=== PATIENT | male | born 1950 | race Caucasian/White ===

== ENCOUNTER 2019-03-27 09:03 | Emergency (ER) | payer OTHER ==
--- OUTSIDE RECORDS SUMMARY | 2019-03-27 09:05 | XMS REPORT | Clinical Summary ---
:1950 Author Organization [facility] Address [address] [place] [address] Care Team Providers Name Role Phone Santiago Mackenzie MD Primary Care Provider Allergies No Known Allergies Medications Medication Sig Dispensed Refills Start Date End Date Status meloxicam (MOBIC) 15 mg Take 15 mg by 0 Active tablet mouth daily. Active Problems Problem Noted Date Internal hemorrhoids without complication 01/21/2017 Perianal dermatitis 01/21/2017 Family History Medical History Relation Name Comments Heart disease Father Hypertension Father Lung disease Father Colon cancer Maternal Uncle Breast cancer Mother Relation Name Status Comments Father Maternal Uncle Mother Social History Tobacco Use Types Packs/Day Years Used Date Never Smoker Alcohol Use Drinks/Week oz/Week Comments No Sex Assigned at Date Recorded Not on file Job Start Date Occupation Industry Not on file Not on file Not on file Travel History Travel Start Travel End No recent travel history available. Last Filed Vital Signs Not on file Plan of Treatment Health Maintenance Due Date Last Done Comments COLONOSCOPY SCREENING 2002 SHINGLES VACCINES (#1) 2002 65+ PNEUMOCOCCAL VACCINE (1 of 2 - PCV13) 2017 INFLUENZA VACCINE 03/11/2019 Results Not on fileafter 03/26/2018 (Work) [id number] Advance Directives Patient has advance care planning documents on file. For more information, please contact:[address] [place] [address]
[2019-03-27] MEDS ORDERED: TETANUS & DIPHTHERIA TOX,ADULT 0.5 ML VIAL ONE (09:28)
[2019-03-27] MEDS ORDERED: LIDOCAINE 1% MPF 5 ML VIAL ONE (09:28)
--- NOTE | 2019-03-27 10:01 | EDPHYS ---
Physician Documentation [facility] Name: Sara Corbin Age: 68 yrs Sex: Male : 1950 Arrival Date: 03/27/2019 Time: 09:07 Bed 18 Private MD: ED Physician Preston Perkins HPI: 03/27 09:55 This 68 yrs old Male presents to ER via Ambulatory with complaints of finger gs laceration. 09:55 The patient or guardian reports a laceration, clean, 2 cm(s). The complaints affect the gs left hand diffusely. Context: The problem was sustained at home, resulted from using knife. Onset: The symptoms/episode began/occurred acutely, just prior to arrival. Modifying factors: The symptoms are alleviated by elevation, the symptoms are aggravated by movement. Associated signs and symptoms: Pertinent negatives: numbness distally. Severity of symptoms: At their worst the symptoms were moderate, in the emergency department the symptoms are unchanged. The patient has not experienced similar symptoms in the past. Historical: - Allergies: 09:14 No Known Allergies; ss - Home Meds: 09:14 None [Active]; ss - PMHx: 09:14 None; ss - PSHx: 09:14 knee repair; ss - Immunization history:: Last tetanus immunization: unknown. - Social history:: Smoking status: Patient/guardian denies using tobacco. - Ebola Screening: : Patient denies exposure to infectious person Patient denies travel to an Ebola-affected area in the 21 days before illness onset. ROS: 09:55 All other systems are negative. gs Exam: 09:55 Constitutional: The patient appears alert, awake, uncomfortable. gs 09:55 Musculoskeletal/extremity: ROM: no acute changes, Circulation is intact in all extremities. Sensation intact. 09:55 Skin: injury, laceration(s), the wound is approximately 2 cm(s), with a depth of .5 cm(s), of the palmar aspect of distal phalanx of left thumb. Vital Signs: 09:14 BP 160 / 92; Pulse 89; Resp 17; Temp 97.8(TE); Pulse Ox 97% on R/A; Weight 122.47 kg; ss Height 5 ft. 10 in. (177.80 cm); Pain 4/10; 09:14 Body Mass Index 38.74 (122.47 kg, 177.80 cm) ss Laceration: 09:55 Wound Repair of 2cm ( 0.8in ) subcutaneous laceration to palmar aspect of distal gs phalanx of left thumb. Distal neuro/vascular/tendon intact. Anesthesia: Wound infiltrated with 1 mls of 1% lidocaine. Wound prep: Simple cleansing with hibiclenz, Wound irrigation by me. Skin closed with 3 4-0 Prolene using simple sutures and sterile technique. Dressed with 4x4's. Patient tolerated well. MDM: 09:26 Patient medically screened. gs 09:55 Differential diagnosis: lac. Data reviewed: vital signs, nurses notes. Response to gs treatment: the patient's symptoms have markedly improved after treatment, and as a result, I will discharge patient. 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 Exp: em 11/19/2020. Lot #: [id number]. } Route: IM; Site: left deltoid; 09:54 Follow up: Response: No adverse reaction em 09:48 Drug: Lidocaine (1 %) 5 mg {Note: administered by Dr. Perkins.} Volume: 5 ml; Route: em Infiltration; Site: wound; 09:54 Follow up: Response: No adverse reaction; Pain is decreased em Disposition: 03/27/19 10:00 Discharged to Home. Impression: left thumb laceration. - Condition is Stable. - Discharge Instructions: Laceration Care, Adult, [id number]. - Medication Reconciliation Form, Thank You Letter, Antibiotic Education, Prescription Opioid Use form. - Follow up: Private Physician; When: 7 - 10 days; Reason: Staple/Suture removal. Signatures: Luis Alfredo Powers, BORING MACHINE OPERATOR HELPER BORING MACHINE OPERATOR HELPER em Natalya Kaur RN RN ss Starr, Gregory, MD MD gs Corrections: (The following items were deleted from the chart) 10:00 10:00 03/27/2019 10:00 Discharged to Home. Impression: left thumb laceration. Condition gs is Stable. Forms are Medication Reconciliation Form, Thank You Letter, Antibiotic Education, Prescription Opioid Use. Follow up: Private Physician; When: 2 - 3 days; Reason: Re-evaluation by your physician. gs 10:12 10:00 03/27/2019 10:00 Discharged to Home. Impression: left thumb laceration. Condition em is Stable. Forms are Medication Reconciliation Form, Thank You Letter, Antibiotic Education, Prescription Opioid Use. Follow up: Private Physician; When: 7 - 10 days; Reason: Staple/Suture removal. gs
--- NOTE | 2019-03-27 10:01 | ER ---
Nurse's Notes [facility] Name: Sara Corbin Age: 68 yrs Sex: Male : 1950 Arrival Date: 03/27/2019 Time: 09:07 Bed 18 Private MD: Diagnosis: left thumb laceration Presentation: 03/27 09:12 Presenting complaint: Patient states: Partial amputation to very tip of L thumb ss sustained by knife, 45 minutes ago. No active bleeding noted at this time. Transition of care: patient was not received from another setting of care. Onset of symptoms was March 27, 2019. Risk Assessment: Do you want to hurt yourself or someone else? Patient reports no desire to harm self or others. Initial Sepsis Screen: Does the patient meet any 2 criteria? No. Patient's initial sepsis screen is negative. Does the patient have a suspected source of infection? No. Patient's initial sepsis screen is negative. Care prior to arrival: None. 09:12 Method Of Arrival: Ambulatory ss 09:12 Acuity: [place] 4 ss Historical: - Allergies: 09:14 No Known Allergies; ss - Home Meds: 09:14 None [Active]; ss - PMHx: 09:14 None; ss - PSHx: 09:14 knee repair; ss - Immunization history:: Last tetanus immunization: unknown. - Social history:: Smoking status: Patient/guardian denies using tobacco. - Ebola Screening: : Patient denies exposure to infectious person Patient denies travel to an Ebola-affected area in the 21 days before illness onset. Screenin:23 Abuse screen: Denies threats or abuse. Nutritional screening: No deficits noted. em Tuberculosis screening: No symptoms or risk factors identified. Fall Risk None identified. Assessment: 09:25 General: Appears in no apparent distress. comfortable, Behavior is calm, cooperative. em Pain: Complains of pain in dorsal aspect of distal phalanx of left thumb Pain currently is 4 out of 10 on a pain scale. Pain began 30 min ago. Neuro: Level of Consciousness is awake, alert, obeys commands, Oriented to person, place, time, situation. Cardiovascular: Capillary refill < 3 seconds Patient's skin is warm and dry. Respiratory: Airway is patent Respiratory effort is even, unlabored, Respiratory pattern is regular, symmetrical. Derm: Skin is intact, is healthy with good turgor, Skin is pink, warm \T\ dry. Musculoskeletal: Capillary refill < 3 seconds, Range of motion: intact in all extremities. Injury Description: Laceration sustained to dorsal aspect of distal phalanx of left thumb is clean, 0.5 to 2.5 cm long, not bleeding, was sustained 30-60 minutes ago. a small amount of bleeding noted at this time. 09:30 General: The previous assessment is accurate. Family member remains at bedside. No ss active bleeding noted at this time. . Vital Signs: 09:14 BP 160 / 92; Pulse 89; Resp 17; Temp 97.8(TE); Pulse Ox 97% on R/A; Weight 122.47 kg; ss Height 5 ft. 10 in. (177.80 cm); Pain 4/10; 09:14 Body Mass Index 38.74 (122.47 kg, 177.80 cm) ED Course: 09:07 Patient arrived in ED. mr 09:09 Luis Alfredo Powers LVN is Primary Nurse. em 09:13 Triage completed. ss 09:14 Arm band placed on right wrist. ss 09:18 Preston Perkins MD is Attending Physician. gs 09:23 Patient has correct armband on for positive identification. Bed in low position. em 09:54 Assist provider with laceration repair on dorsal aspect of distal phalanx of left thumb em that was 2.5 cm. or less using sutures. Set up tray. Performed by Preston Perkins MD Dressed with 4X4s, Kerlix, Neosporin, Patient tolerated well. Patient did not have IV access during this emergency room visit. 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 Exp: em 11/19/2020. Lot #: [id number]. } Route: IM; Site: left deltoid; 09:54 Follow up: Response: No adverse reaction em 09:48 Drug: Lidocaine (1 %) 5 mg {Note: administered by Dr. Perkins.} Volume: 5 ml; Route: em Infiltration; Site: wound; 09:54 Follow up: Response: No adverse reaction; Pain is decreased em Outcome: 10:00 Discharge ordered by MD. gs 10:12 Discharged to home ambulatory. em 10:12 Condition: good 10:12 Discharge instructions given to patient, Instructed on discharge instructions, follow up and referral plans. wound care, Demonstrated understanding of instructions, follow-up care, wound care. 10:12 Patient left the ED. em Signatures: Frieda Correia Edgar, STREET LIGHT SERVICER STREET LIGHT SERVICER em Natalya Kaur, LINDA RN ss Preston Perkins MD MD
== END 2019-03-27 10:12 | disposition home or self-care (01) ==
LOC: ER 09:03
PROC: 0JQK0ZZ Repair Left Hand Subcutaneous Tissue and Fascia, Open Approach (ICD-10-PCS; principal; 2019-03-27)
DX: S61.012A Laceration without foreign body of left thumb without damage to nail, initial encounter (principal); W26.0XXA Contact with knife, initial encounter; Y93.9 Activity, unspecified; Z23 Encounter for immunization
CPT/HCPCS: 90471; 90714; 99283

== ENCOUNTER 2022-12-07 22:25 | Emergency (ER) | payer OTHER ==
--- OUTSIDE RECORDS SUMMARY | 2022-12-07 22:29 | XMS REPORT | Clinical Summary ---
:1950 Author Organization [facility] MD [facility] Address [address] [place] [address] Care Team Providers Name Role Phone Karen Gutierrez MD Unavailable [phone] Funmilayo Arriaga MD Primary Care Provider Allergies No known active allergies Medications Medication Sig Dispensed Refills Start Date End Date Status doxycycline (ADOXA) Take 1 0 12/13/2021 Active 100 MG tablet tablet by mouth daily. diclofenac sodium Take 1 0 10/16/2021 A ctive (VOLTAREN) 75 mg EC tablet by tablet mouth twice daily. pseudoephedrine HCl Take by 0 Active (SUDAFED ORAL) mouth. meloxicam (MOBIC) Take 7.5 mg 0 Discontinued 7.5 mg tablet by mouth 2 (Thera py twice completed) daily. traMADol (Ultram) 50 Take 1 10 tablet 0 01/29/2022 07/31/20 2 Discontinued mg tablet (50 2 (Therapy tabletIndications: mg) by leah bryant) Malignant melanoma mouth every of skin of chest 6 (six) hours as needed for severe pain. Active Problems Problem Noted Date Multiple actinic keratoses 07/31/2022 Arthritis 12/28/2021 Malignant melanoma of skin of chest 12/25/2021 Overview: Added automatically from request for ebonie baltazar [id number] Encounters Date Type Specialty Care Team Description 07/31/2022 Follow-Up Endocrine Surgery Funmilayo Arriaga, Malign ant melanoma of skin of chest (Primary Dx); Multiple actinic keratoses Billie Hanson PA 07/31/2022 Travel 02/04/2022 Orders Only Endocrine Surgery Funmilayo Arriaga, Malign ant melanoma of ski n of chest (Prima ry Dx) 01/29/2022 Ancillary Procedure Radiology Valentin, Malignelizabeth t Billie L, PA melanoma of s kin of chest 01/29/2022 Surgery Ambulatory Surgery Funmilayo Arriaga, DARIEL STEWART OF MALIGNANT LESIO N OF TRUNK, right chest 01/29/2022 Anesthesia Event Ambulatory Surgery Aliyah Suazo MD 01/29/2022 Hospital Encounter Ambulatory Surgery Funmilayo Arriaga, Malignant MD melanoma of ski n of chest 01/29/2022 Orders Only Endocrine Surgery Valentin, Billie L, PA 01/29/2022 Travel 01/28/2022 Anesthesia Event Anesthesiology Pelon Craft, [place] 01/28/2022 POEM Appointments Anesthesiology Valentin, Malignan t Billie L, PA melanoma of s kin of chest 01/28/2022 Clinical Support Eri Hanson, Suspicion ( Primary Dx); Billie L, PA Malignant melanoma of skin of chest Fuentes Brown 01/28/2022 Travel 01/23/2022 Ancillary Procedure Radiology Valentin, Malignan t Billie L, PA melanoma of s kin of chest 01/23/2022 Ancillary Procedure Radiology Valentin, Malignan t Billie L, PA melanoma of s kin of chest 01/23/2022 Travel 01/04/2022 Telephone Oncology Corrine Leonard RN 12/27/2021 Office Visit Endocrine Surgery Funmilayo Arriaga, Malign martín [place] melanoma of ski n of chest (Prima ry Dx) 12/27/2021 NPR Patient Access Funmilayo Arriaga Services MD 12/27/2021 Travel 12/25/2021 Lab Requisition Abhilash Nelson MD Rincon, Liliana, MD 12/25/2021 Orders Only Endocrine Surgery Kidder, Malignant Billie L, PA melanoma of s kin of chest (Prima ry Dx) 12/25/2021 Prep for Surgery Endocrine Surgery Valentin, Malign ant Billie L, PA melanoma of s kin of chest (Prima ry Dx) after 12/07/2021 Immunizations Name Administration Dates Next Due Pfizer SARS-CoV-2 Vaccination 11/16/2021, 05/25/2021, 10/11, (Purple Cap) 09/20/2020 Surgical History Surgery Date Site/Laterality Comments COLONOSCOPY KNEE ARTHROPLASTY VA EXCISION MAL LESION 01/29/2022 Chest/Right Procedure : EXCISION OF TRUNK/ARM/LEG 0.6-1.0 CM MALIGNA NT LESION OF TRUNK, right chest; Ebonie geon: Funmilayo Arriaga MD; Loca tion: [facility]; Service: SURG ON C - MELANOMA VA INJ RADIOACTIVE TRACER FOR 01/29/2022 Chest/Right Pr ocedure: ISOTOPE INJECTION ID OF SENTINEL NODE FOR SENTINEL NODE BIOPSY; Surgeon: Funmilayo Arriaga MD; [facility]; Service: SURG ONC - MELAN AVERY VA BX/EXC LYMPH NODE OPEN 01/29/2022 Axilla/Right Proced ure: BIOPSY OR EXCISION SUPERFICIAL OF SUPERFICIAL L YMPH NODE; Surgeon: Funmilayo Arriaga MD; [facility]; Service: SURG ONC - MELAN AVERY VA INTRAOP SENTINEL LYMPH 01/29/2022 Chest/Right Proced ure: INTRAOPERATIVE NODE ID W/DYE INJECTION LYMPHATI C MAPPING; Surgeon: Funmilayo Arriaga MD; Location: [facility]; Service : SURG ONC - MELANOMA Medical History Medical History Date Comments Polyp of colon Malignant melanoma of skin Family History Medical History Relation Name Comments Lung cancer Father Maximiliano Corbin Colon cancer Maternal Uncle Katia Soto Thyroid cancer Mother Hatti Relation Name Status Comments Father Maximiliano Corbin Maternal Uncle Katia Soto Mother Hatti Social History Tobacco Use Types Packs/Day Years Used Date Smoking Tobacco: Former Cigarettes 1.5 19 1971 - 1990 Smokeless Tobacco: Former Qu it: 1992 Alcohol Use Standard Drinks/Week Comments Not Currently 42 (1 standard drink = 0.6 oz pure alcoh ol) Sex Assigned at Date Recorded Not on file Job Start Date Occupation Industry Not on file Not on file Not on file Obstetrics History Last Filed Vital Signs Vital Sign Reading Time Taken Comments Blood Pressure 148/88 07/31/2022 10:35 AM RESOLUTION EXPERT Pulse 80 07/31/2022 10:35 AM RESOLUTION EXPERT Temperature 36.6 C (97.9 F) 07/31/2022 10:34 AM RESOLUTION EXPERT Respiratory Rate 18 07/31/2022 10:34 AM RESOLUTION EXPERT Oxygen Saturation 98% 07/31/2022 10:34 AM RESOLUTION EXPERT Inhaled Oxygen Concentration - - Weight 115.8 kg (255 lb 4.7 oz) 01/29/2022 5:48 AM CDT Height 175.5 cm (5' 9.09") 12/27/2021 11:06 AM CDT Body Mass Index 37.6 12/27/2021 11:06 AM CDT Plan of Treatment Date Type Specialty Care Team Description 01/30/2023 Follow-Up Endocrine Surgery Funmilayo Arriaga MD [address] [place], [place] [address] (Wo rk) Health Maintenance Due Date Last Done Comments COVID-19 Vaccination (5 - Booster 01/11/2022 11/16/2021, , for Pfizer series) 10/11/2020, Additional histor y exists Procedures Procedure Name Priority Date/Time Associated Comments Diagnosis NM DOSING APPOINTMENT Routine 01/29/2022 4:19 PM Malignant fatemeh anoma Results for this CDT of skin of chest procedure a re in the results section. PATHOLOGY SURGICAL Routine 01/29/2022 8:11 AM Malignant melano ma Results for this INTERPRETATION CDT of skin of chest procedure are in the results section. INTRAOPERATIVE 01/29/2022 6:30 Malignant melanoma LYMPHATIC MAPPING AM CDT of skin of chest Special Needs VS [facility] BIOPSY OR EXCISION OF 01/29/2022 6:30 AM CDT Malignant melanoma of skin SUPERFICIAL LYMPH NODE of chest Special Needs VS [facility] ISOTOPE INJECTION FOR 01/29/2022 6:30 AM CDT Malignant melanoma of skin of SENTINEL NODE BIOPSY chest Special Needs VS [facility] EXCISION OF MALIGNANT LESION 01/29/2022 6:30 AM CDT Malignant melanoma of skin of OF TRUNK, chest Special Needs VS [facility] POC GLUCOSE SCREEN Routine 01/29/2022 6:24 AM Res ults for this CDT procedure are i n the results section. COVID-19 (SARS-COV-2) Routine 01/28/2022 8:39 AM Results for this PCR-ASYMPTOMATIC MC CDT procedur e are in the results section. NM LYMPHOSCINTIGRAPHY Routine 01/23/2022 2:30 PM Malignant Results for this MELANOMA CDT melanoma of skin procedure a re in of chest the results section. XR CHEST 2 VW Routine 01/23/2022 11:33 Malignant Results fo r this AM CDT melanoma of skin procedure a re in of chest the results section. CALCIUM LEVEL TOTAL Routine 01/23/2022 10:27 Malignant Resu lts for this AM CDT melanoma of skin procedure a re in of chest the results section. .GLOMERULAR FILTRATION Routine 01/23/2022 10:27 Malignant R esults for this RATE AM CDT melanoma of skin procedure a re in of chest the results section. SERUM CREATININE Routine 01/23/2022 10:27 Malignant Results for this AM CDT melanoma of skin procedure a re in of chest the results section. ELECTROLYTE PANEL Routine 01/23/2022 10:27 Malignant Result s for this AM CDT melanoma of skin procedure a re in of chest the results section. BLOOD UREA NITROGEN Routine 01/23/2022 10:27 Malignant Resu lts for this AM CDT melanoma of skin procedure a re in of chest the results section. GLUCOSE LEVEL Routine 01/23/2022 10:27 Malignant Results fo r this AM CDT melanoma of skin procedure a re in of chest the results section. PROTHROMBIN TIME Routine 01/23/2022 10:27 Malignant Results for this AM CDT melanoma of skin procedure a re in of chest the results section. HEMOGLOBIN A1C Routine 01/23/2022 10:27 Malignant Results f or this AM CDT melanoma of skin procedure a re in of chest the results section. COMPLETE BLOOD COUNT W/ Routine 01/23/2022 10:27 Malignant Results for this INDICES AM CDT melanoma of skin procedure a re in of chest the results section. BASIC METABOLIC PANEL, Routine 01/23/2022 10:27 Malignant CALCIUM TOTAL AM CDT melanoma of skin of chest EKG, 12-LEAD (SCHEDULED) Routine 01/23/2022 Malignant melanoma of skin of chest after 12/07/2021 Results NM Dosing Appt (01/29/2022 4:19 PM CDT) Anatomical Region Laterality Modality Nuclear Medicine Specimen (Source) Anatomical Collection Method Collection Time Re ceived Time Location / / Volume Laterality 01/29/2022 4:26 PM CDT Impressions 01/29/2022 4:27 PM CDT Dispensation of radiocolloid for intraoperative sentinel lymph node localization. Narrative 01/29/2022 4:27 PM CDT FULL RESULT: Examination: Dosing Appointment, 01/30/20 4:19 PM Clinical History: Melanoma Indication: Lymphatic mapping for intrao perative sentinel lymph node localization. Comparison: None. Technique: Unfiltered technetium-99m sul fur colloid, 0.55 mCi, was dispensed to the operating room nurse for injection into the chest melanoma site by Dr. Arriaga. Findings: No imaging was acquired. Procedure Note Dariel Mendez MD - 01/29/2022Fo rmatting of this note might be different from the original. FULL RESULT: Examination: Dosing Appointment, 01/30/20 4:19 PM Clinical History: Melanoma Indication: Lymphatic mapping for intrao perative sentinel lymph node localization. Comparison: None. Technique: Unfiltered technetium-99m sul fur colloid, 0.55 mCi, was dispensed to the operating room nurse for injection into the chest melanoma site by Dr. Arriaga. Findings: No imaging was acquired. IMPRESSION: Dispensation of radiocolloid for intraop erative sentinel lymph node localization. Billie [place] [facility] [place] Pathology Surgical Interpretation (01/29/2022 8:11 AM CDT) Component Value Ref Test Analysis Performed Pathologis t Range Method Time At Signature Submitted Malignant melanoma of 02/04/2022 [facility] Clinical skin of chest 7:35 AM History [C43.59] CDT Diagnosis A: Right axillary sentinel l ymph node # 1, hot and blue, ex vivo- 397, lymphadenectomy: 02/04/2022 [facility] Electronic ally One lymph node, melanoma not identified (0/1). 7:35 AM signed by See comment. CDT Thanh Ball MD B: Right chest, skin ellipse: on 02/04/2022 at Skin and subcutis with healing surgical wound/scar. 7:35 AM FOCAL INVASIVE AND IN-SITU MELANOMA, MARGINS ARE FREE Preliminary BRESLOW THICKNESS: 1.2 MM; GOPI LEVEL: IV result Background actinic keratosis. electronically Incidental early seborrheic keratosis. signed by Multifocal folliculitis and focal acantholytic dyskeratosis. Vitor See comment. Guille johnson MD on 02/01/20 at 6:11 PM Comment A: Examination of additional tissue levels and a melanocytic cocktail (HMB45, anti-MART1 and anti-tyrosinase) immunohistochemical study fails to reveal metastatic melanoma. 02/04/2022 [facility] 7:35 AM B: Small foci of spindle alejo l proliferation with slightly different morphologies is noted in blocks B8 and B9. Melanocytic cocktail (HMB45 and anti- tyrosinase) and SOX10 immunohistochemical studies high CDT light the dermal spindled ce lls in block B8, supporting the presence of in-situ and invasive melanoma, while the spindled cell sin B9 are essentially negative. There are a few nests of malignant melanoc ytes located deeper in assoc iation with adnexal structures and therefore, have not been included in the measurement of Breslow thickness. Synoptic MELANOMA OF THE SKIN: Excision, Re-Excision 02/04/2022 [facility] Checklist MELANOMA OF THE SKIN: EXCISION, RE-EXCISION - All Sp ecimens 7:35 AM 8th Edition - Protocol posted: 02/07/2021 CDT SPECIMEN Procedure: Excision Procedure: Nunn node(s) biopsy Specimen Laterality: Right TUMOR Tumor Site: Skin of trunk: Chest, medial inferior Histologic Type: Steve perficial spreading melanoma (low-cumulative sun damage (CSD) melanoma) Maximum Tumor (Breslow) Thickness (Millimeters): 1. 6 mm Macroscopic Satellite Nodule(s): Not identified Ulceration: Not identified Anatomic (Gopi) Level: IV (Melanoma invades reticu lar dermis) Mitotic Rate: 3 mitoses per mm2 Microsatellite(s): Not identified Lymphovascular Invasion: Not identified Neurotropism: Not identified Tumor-Infiltrating Lymphocytes: Present, nonbrisk Tumor Regression: Not identified MARGINS: Margin Status for Inv asive Melanoma: All margins negative for invasive melanoma REGIONAL LYMPH NODES: Regional Lymph Node Status: : All regional lymph nodes negative for tumor Total Number of Lymph Nodes Examined: 1 Number of Nunn Nodes Examined: 1 PATHOLOGIC STAGE CLASSIFICATION (pTNM, AJCC 8th Edition) : : Classification assigned in this report includes information from a prior procedure: [id number] pT Category: pT2a pN Category: pN0 Gross A: 02/04/2022 [facility] Description Nunn lymph node, axillar y, right axillary sentinel lymph node # 1, hot and blue, ex vivo- 397 (permanent and serial sectioning) acb or 5: A 2.0 x 1.2 x 0.5 cm lymph node. 7:35 AM SECTION CODE: A1-A2-1 possible lymph node sectioned. KR CDT B: Chest, right, wle right ches t melanoma, short stitch superior, long stitch right lateral (permanent) abc or 5: A 8.0 x 2.5 x 1.7 cm ellipse of nuñez skin that is oriented with a short stitch at superior a nd a long stitch at right la teral. Located on the surface of the skin is a 1.1 x 1.1 cm white, flat, circular previous biopsy site surrounded by a 3.3 x 2.5 cm area of dark nuñez mottling obscured by blue dye. The entire lesional ar ea comes to within 2.4 cm from the superior margin, 0.2 cm from the left lateral margin, 2.1 cm from the inferior margin, and 0.1 cm from the right lateral margin. The specimen is inked and sectioned. INK CODE: Blue-left lateral; Walsh-right lateral SECTION CODE: B1-superior t ip, ink side up; B2-inferior tip, ink side up; B3- deep margin, ink side up; B4-B 10-entire lesional area blocked off and submitted from superior to inferior in order. KR Biomarker Tumor: B8 (adequate for immunohistochemical studies on ly) 02/04/2022 [facility] Block(s) Normal: A2 7:35 AM CDT Disclaimer "Some tests reported 02/04/2022 [facility] here may have been 7:35 AM developed and CDT performance characteristics determined by [facility] Pathology and Laboratory Medicine. These tests have not been specifically cleared or approved by the U.S. Food and Drug Administration. If applicable, controls were reviewed and showed appropriate reactivity." Specimen Anatomical Collection Method Collection Time Receive d Time (Source) Location / / Volume Laterality Tissue (Nunn 01/29/2022 8:11 AM 01/29 9:09 Lymph Node, CDT AM CDT Axillary) Tissue (Chest, 01/29/2022 8:15 AM 022 9:09 Right) CDT AM CDT Funmilayo Arriaga MD LAB PATHOLOGY ORDERABLES Performing Organization Address City/State/ZIP Code Phon e Number [facility], [place] [id number] Sunil Lopez (ABNORMAL) POC Glucose Screen (01/29/2022 6:24 AM CDT) athologist Signature POC Glucose 118 (H) 70 - 99 POC [facility] mg/dL Comment: RN Notified Capillary blood samples, e.g. obtained b y fingerstick, may have inaccurate results in patients with decreased peripheral blood flow. Method description: All results are ladi ured using Electrochemistry test methodology. The glucose in the sample mixes with the reagents on the test strip. The reaction produces an electric current. The amount of current produced is proportion al to the glucose concentration in the blood. PO Sample Type Venous POC [facility] Performing Lab [facility] POC TEL[facility] R Comment: [facility], [facility] [facility], [place] [address]; Lab Direct or: Richelle Preston MD Specimen Anatomical Collection Method Collection Time Receive d Time (Source) Location / / Volume Laterality Blood 01/29/2022 6:24 AM 6:24 CDT AM CDT Funmilayo Arriaga MD POCT ORDERABLES - DEVICE Performing Organization Address City/State/ZIP Code Phon e Number POC [facility] Unless otherwise noted, [place] [address] lab tests performed by: Division of Pathology and Laboratory Medicine [address] [place] [address] POC [facility] COVID-19 (SARS-CoV-2) PCR-Asymptomatic (01/28/2022 8:39 AM CDT) [facility] Method Time Signature COVID19 (SARS Not Detected Not Detected ME CoV-2) [facility] Comment: This test is a qualitative reverse-trans criptase polymerase chain reaction (RT- PCR) developed for the [employer] DANA 6800 system and intended for qualitative detection of SARS CoV-2 RNA in nasopharyngeal a nd oropharyngeal swab specimens collecte d from any individuals, including those suspected o f COVID-19 by their healthcare provider, and those without symptoms or other reasons to suspect COVID-19. A fact sheet for patients provided by the hospice patient care secretary ( [employer]) can be rev iewed at: https://www.fda.gov/media/577845/joni luna A fact sheet for Health Care providers is provided by the hospice patient care secretary ([employer]) and can be reviewed at: https://www.fda.gov/media/202725/download Results must be interpreted within the c ontext of all relevant clinical and laboratory findings and should not form the sole basis for a diagnosis or treatment decision. Positive results do not rule out bacterial infection or co- infection with other viruses. Negative results do not rule ou t SARS-CoV-2 and must be combined with clinical observations, patient history, and/or epidemiological information. "Presumptive Positive" results are due t o partial amplification of SARS-CoV-2 targets and indicates low amounts of virus present in the specimen at or near the limit of detection. Regardless, individuals with "Presumptive Positive" results should be managed per institutional guidelines as individuals positive for SARS-CoV-2 virus, including use of appropriate infection control protocols. Internal controls are included to assess for possible amplification inhibitors. If inhibition is detected, testing is repeated and if inhibition is confirmed the specimen is resulted as "Invalid". When an "Invalid" result occurs, it is recomm ended to wait 3 days before submitting a new spec imen for testing if clinically indicated. This assay has been approved by the FDA for use only under Emergency Use Authorization (EUA) in laboratories that have been CLIA-certified to perform moderate-complexity and high-complexity tests. The performance characteristics of this assay were verified by the Microbiology Laboratory at [facility], CLIA Accreditation #: [id number] and CAP Accreditation #: [id number]. COVID19 SARS Source [employer]IST Swab ME MD [facility] COVID19 SARS Indication Pre-OR Procedure [facility] Specimen (Source) Anatomical Collection Method Collection Time Re ceived Time Location / / Volume Laterality Nasopharyngeal Swab 01/28/2022 8:39 01/28 AM CDT 3:30 PM CDT Funmilayo Arriaga MD MICROBIOLOGY - GENERAL ORDER LIZETH Performing Organization Address City/State/ZIP Code Phon e Number [facility] Unless otherwise noted, [place], [place] [id number] [place] [address] all lab tests performed by: Division of Pathology and Laboratory Medicine [address] [place] [address] Lymphoscintigraphy Melanoma (01/23/2022 2:30 PM CDT) Anatomical Region Laterality Modality Abdomen Single-Photon Emissi on Computed Tomography (SPECT) Specimen (Source) Anatomical Collection Method Collection Time Re ceived Time Location / / Volume Laterality 01/23/2022 4:50 PM CDT Impressions 01/23/2022 4:51 PM CDT Draining right axillary node. Narrative 01/23/2022 4:51 PM CDT FULL RESULT: Examination: Lymphoscintigraphy, 01/24/20 2:30 PM Clinical History: 71-year-old male with melanoma of the chest wall Indication: Lymphatic mapping for sentin el lymph node localization. Comparison: None. Technique: The patient was injected with 0.55 mCi of filtered technetium-99m sulfur colloid in four increments intradermally around the marked melanoma site in the right anterior chest. Multiple planar images of chest were obtained. Findings: A focus of intense radiotracer activity is identified in the right medial chest at the site of injection. A separate focus of activity is identified in the right axilla representing the draining node. Procedure Note Dariel Mendez MD - 01/23/2022Fo rmatting of this note might be different from the original. FULL RESULT: Examination: Lymphoscintigraphy, 01/24/20 2:30 PM Clinical History: 71-year-old male with melanoma of the chest wall Indication: Lymphatic mapping for sentin el lymph node localization. Comparison: None. Technique: The patient was injected with 0.55 mCi of filtered technetium-99m sulfur colloid in four increments intradermally around the marked melanoma site in the right anterior chest. Multiple planar images of chest were obtained. Findings: A focus of intense radiotracer activity is identified in the right medial chest at the site of injection. A separate focus of activity is identified in the right axilla representing the draining node. IMPRESSION: Draining right axillary node. Billie BARBOSA NM ORDERABLES X-ray Chest 2 Views (01/23/2022 11:33 AM CDT) Anatomical Region Laterality Modality Chest Digital Radiography Specimen (Source) Anatomical Collection Method Collection Time Re ceived Time Location / / Volume Laterality 01/23/2022 11:35 AM CDT Impressions 01/23/2022 11:36 AM CDT There is no sign of acute or metastatic intrathoracic disease. Narrative 01/23/2022 11:36 AM CDT FULL RESULT: Examination: Chest, 2 views, 01/23/2022 1 1:33 AM Clinical History: Malignant melanoma of skin of chest: Assess for active or metastatic intrathoracic disease. Clarify subsequent treatment strategy. Indication: Staging of Disease Progressi on: Assess for active or metastatic intrathoracic disease. Clarify subsequent treatment strategy. Melanoma Comparison: None Technique: Posterior, lateral and dual-e nergy radiograph of the chest Findings: Lung parenchyma:There are there are no n oncalcified pulmonary nodules. There is no sign of consolidation to suggest pneumonia. Nodes:There is no enlargement of the med iastinal or hilar regions to suggest underlying enlarged nodes. Cardiac: The cardiopericardial silhouett e is not enlarged. Pleura:There is no sign of a pleural eff usion. Degenerative changes of the spine. Procedure Note Kevin Woodward MD - 01/23/2022Formatt ing of this note might be different from the original. FULL RESULT: Examination: Chest, 2 views, 01/23/2022 1 1:33 AM Clinical History: Malignant melanoma of skin of chest: Assess for active or metastatic intrathoracic disease. Clarify subsequent treatment strategy. Indication: Staging of Disease Progressi on: Assess for active or metastatic intrathoracic disease. Clarify subsequent treatment strategy. Melanoma Comparison: None Technique: Posterior, lateral and dual-e nergy radiograph of the chest Findings: Lung parenchyma:There are there are no n oncalcified pulmonary nodules. There is no sign of consolidation to suggest pneumonia. Nodes:There is no enlargement of the med iastinal or hilar regions to suggest underlying enlarged nodes. Cardiac: The cardiopericardial silhouett e is not enlarged. Pleura:There is no sign of a pleural eff usion. Degenerative changes of the spine. IMPRESSION: There is no sign of acute or metastatic intrathoracic disease. Billie [facility] ORDER LIZETH .Serum Creatinine (01/23/2022 10:27 AM CDT) athologist Signature Creatinine 1.03 0.67 - 1.17 [facility] mg/dL Comment: Testing performed at [facility], [address] [facility] [place] [address] Specimen Anatomical Collection Method Collection Time Receive d Time (Source) Location / / Volume Laterality Blood 01/23/2022 10:27 01/23/2022 AM CDT 10:28 AM CDT Billie MORENO LAB BLOOD ORDERABLES Performing Organization Address City/State/[place] [address] [address] [facility] Glomerular Filtration Rate (01/23/2022 10:27 AM CDT) athologist Signature eGFR-AA 85 >=60 [facility] mL/min/1.73 sq. m Comment: Normal eGFR >= 60 mL/min/1.73 m2 Note: The eGFR is calculated using the C KD-EPI equation. The eGFR declines with age. eGFR <60 mL/min/1.73 m2 is considered as "decreased". This equation should only be used for patients 18 and older. According to the [employer]'s Kidney Disease Outcome Quality Initiative (KDOQI) classification and 2012 Kidney Disease Improving Global Outcomes (KDIGO) Clinical Practice Guideline, the stage of CKD should be categorized based on estimated GFR. Stage Description GFR mL/min/1. 73 m2 1 Normal or high GFR >=90 2 Mildly decreased GFR 60-89 3a Mildly to moderately decreased GFR 45-59 3b Moderately to severely decreased GFR 30-44 4 Severely decreased GFR 15-29 5 Kidney failure <15 [facility], [address] [facility], [place] [address] eGFR-BALDEV 74 >=60 mL/min/1.73 sq. m [facility] Comment: Normal eGFR >= 60 mL/min/1.73 m2 Note: The eGFR is calculated using the C KD-EPI equation. The eGFR declines with age. eGFR <60 mL/min/1.73 m2 is considered as "decreased". This equation should only be used for patients 18 and older. According to the National [employer]'s Kidney Disease Outcome Quality Initiative (KDOQI) classification and 2012 Kidney Disease Improving Global Outcomes (KDIGO) Clinical Practice Guideline, the stage of CKD should be categorized based on estimated GFR. Stage Description GFR mL/min/1. 73 m2 1 Normal or high GFR >=90 2 Mildly decreased GFR 60-89 3a Mildly to moderately decreased GFR 45-59 3b Moderately to severely decreased GFR 30-44 4 Severely decreased GFR 15-29 5 Kidney failure <15 Testing performed at [facility], [address] [place] [address] Specimen Anatomical Collection Method Collection Time Receive d Time (Source) Location / / Volume Laterality Blood 01/23/2022 10:27 01/23/2022 AM CDT 10:28 AM CDT Billie MORENO LAB BLOOD ORDERABLES Performing Organization Address City/[facility]/ZIP [facility] [place] [address] [place] [address] Prothrombin Time with INR (01/23/2022 10:27 AM CDT) athologist Signature PT 12.6 11.5 - 13.9 [facility] second(s) Comment: Testing performed at [facility], [address] [place] [address] INR 0.97 0.90 - 1.10 [facility] Comment: Testing performed at [facility], [address] [place] [address] Specimen Anatomical Collection Method Collection Time Receive d Time (Source) Location / / Volume Laterality Blood 01/23/2022 10:27 01/23/2022 AM CDT 10:28 AM CDT [facility] - 01/23/2022 11:11 AM CDT This lab cannot be scheduled at the [facility] locations due to collection/proccessing restrictions: [facility] and [facility]. Billie MORENO LAB BLOOD ORDERABLES Performing Organization Address City/State/Z[place] [address] [place] [address] Complete Blood Count w/o Differential (01/23/2022 10:27 AM CDT) P athologist Signature WBC 8.4 4.0 - 11.0 [facility] K/uL Comment: All components of the CBC perfo rmed at [facility], [address] [place] [address], [place] [address] RBC 5.11 4.50 - 6.00 M/uL [facility] Comment: All components of the CBC perfo rmed at [facility], [address] [place] [address], [place] [address] Hgb 15.1 14.0 - 18.0 gm/dL [facility] Comment: As part of CBC or as an individ ual orderable testing performed at [facility], [address] [place] [address], [place] [address] Hct 45.4 40.0 - 54.0 % [facility] Comment: As part of CBC testing performe d at [facility], [address] [place] [address] MCV 89 82 - 98 fL [facility] Comment: As part of CBC testing performe d at [facility], [address] [place] [address] MCH 29.5 27.0 - 31.0 pg [facility] Comment: As part of CBC testing performe d at [facility], [address] [place] [address], [place] [address] MCHC 33.3 31.0 - 36.0 gm/dL [facility] Comment: As part of CBC testing performe d at [facility], [address] [place] [address] RDW-SD 43.0 35.1 - 46.3 fL [facility] Comment: As part of CBC testing performe d at [facility], [address] [place] [address] RDW-CV 13.1 12.0 - 15.5 % [facility] Comment: As part of CBC testing performe d at [facility], [address] [place] [address] Platelet count 287 140 - 440 K/uL [facility] Comment: As part of CBC or an individual orderable testing performed at [facility], [address] [place] [address] MPV 9.8 4.0 - 10.4 fL [facility] Comment: As part of CBC testing performe d at [facility], [address] [place] [address] Specimen Anatomical Collection Method Collection Time Receive d Time (Source) Location / / Volume Laterality Blood 01/23/2022 10:27 01/23/2022 AM CDT 10:28 AM CDT Billie Omalleyam PA LAB BLOOD ORDERABLES Performing Organization Address City/State/ZIP Code Phon e Number [place], [place] [id number] [place] [address] BUN (01/23/2022 10:27 AM CDT) athologist Signature BUN 16 6 - 23 mg/dL [facility] Comment: Testing performed at [facility], [address] [place] [address] Specimen Anatomical Collection Method Collection Time Receive d Time (Source) Location / / Volume Laterality Blood 01/23/2022 10:27 01/23/2022 AM CDT 10:28 AM CDT Billie Mendez [place] PA LAB BLOOD ORDERABLES Performing Organization Address City/[facility]/ZIP Code Phon e Number [place], [place] [id number] [place] [address] (ABNORMAL) Hemoglobin A1c (01/23/2022 10:27 AM CDT) athologist Signature A1C 6.2 (H) 4.3 - 5.6 % [facility] Comment: HbA1c values >=6.5% are diagnostic of di abetes mellitus. Diagnosis should be confirmed by repeat testing. Therapeutic Action suggested: >8.0% HbA1 c; Goal of therapy: <7.0% HbA1c Testing performed at [facility], [address] [place] [address] Specimen Anatomical Collection Method Collection Time Receive d Time (Source) Location / / Volume Laterality Blood 01/23/2022 10:27 01/23/2022 AM CDT 10:28 AM CDT Billie Mendez Valentin PA LAB BLOOD ORDERABLES Performing Organization Address City/State/ZIP Code Phon e Number [place], [place] [id number] [place] [address] (ABNORMAL) Glucose Level (01/23/2022 10:27 AM CDT) athologist Signature Glucose Level 139 (H) 70 - 99 [facility] mg/dL Comment: Effective 03/06/16, the glucose reference intervals have been updated based on [place] [employer] guidelines (Standards of Medical Care in Diabetes 2016. Diabetes Care 2016; 39: S13-S22). Fasting blood glucose: Normal: 70-99 mg/dL Impaired fasting glucose (increased risk for diabetes or pre-diabetes): 100- 125 mg/dL Diabetes mellitus: >/=126 mg/dL Random blood glucose: Normal: 70-199 mg/dL Note: Random glucose >100 mg/dL is assoc iated with increased risk for diabetes Testing performed at [facility], [address] [place] [address] Specimen Anatomical Collection Method Collection Time Receive d Time (Source) Location / / Volume Laterality Blood 01/23/2022 10:27 01/23/2022 AM CDT 10:28 AM CDT Billie Omalleyam PA LAB BLOOD ORDERABLES Performing Organization Address City/State/ZIP Code Phon e Number [address] Calcium Level (01/23/2022 10:27 AM CDT) athologist Signature Calcium Lvl 9.9 8.4 - 10.2 [facility] mg/dL Comment: Testing performed at [facility], [address] [place] [address] Specimen Anatomical Collection Method Collection Time Receive d Time (Source) Location / / Volume Laterality Blood 01/23/2022 10:27 01/23/2022 AM CDT 10:28 AM CDT Billie Vanessa Valentin PA LAB BLOOD ORDERABLES Performing Organization Address City/State/ZIP Code Phon e Number [address] Electrolyte Panel (01/23/2022 10:27 AM CDT) athologist Signature Sodium Lvl 138 136 - 145 [facility] mEq/L Comment: Testing performed at [facility], [address] [place] [address] Potassium Lvl 4.1 3.5 - 5.1 mEq/L [facility] Y Comment: Testing performed at [facility], [facility] [place] [address] Chloride 105 98 - 107 mEq/L [facility] Comment: Testing performed at [facility], [address] [place] [address] CO2 24 22 - 29 mEq/L [facility] Comment: Testing performed at [facility], [address] [place] [address] Anion Gap 9 4 - 14 mEq/L [facility] Comment: Testing performed at [facility], [address] [place] [address] Specimen Anatomical Collection Method Collection Time Receive d Time (Source) Location / / Volume Laterality Blood 01/23/2022 10:27 01/23/2022 AM CDT 10:28 AM CDT Billie MORENO LAB BLOOD ORDERABLES Performing Organization Address City/[facility]/ZIP [place] [address] [place] [address] EKG, 12-Lead (Scheduled) (01/23/2022) Specimen (Source) Anatomical Location Collection Method / Collectio n Time Received Time / Laterality Volume Narrative This result has an attachment that is no t available. Billie MORENO ECG ORDERABLES Performing Organization Address [facility] Phon e Number [facility] after 12/07/2021 Insurance Payer Benefit Plan / Subscriber ID Effective Dates Phone Addre ss Type Group AETNA MEDICARE AETNA MEDICARE [id number] 2021-Presen [address] [place] [address] Care Teams Legal Entity Controller Relationship Specialty Start Date End Date Azar Gutierrezice PCP - External Referring Dermatology 12/19/21 MD David [id number] [facility] [address] [place] [address] Funmilayo Arriaga MD PCP - General Surgical Oncology 12/19/21 [facility] [place] [address]
--- OUTSIDE RECORDS SUMMARY | 2022-12-07 22:30 | XMS REPORT | Continuity of Care Document ---
:1950 Author Organization [facility] t Address [address] [place] [id number] Care Team Providers Name Role Phone Santiago Mackenzie MD Primary Care Physician SYSTEM, PROVIDER NOT IN Attending Clinician Unavailable Lul Arriaga MD Attending Clinician Abundio Mercado Attending Clinician Aliyah Suazo MD Attending Clinician Luana MCMANUS, Pelon Johnson Attending Clinician Fuentes Brown Attending Clinician Unavailable ABUNDIO HANSON Attending Clinician Unavailable Horacio MCKEON, Corrine Mcintosh Attending Clinician Abhilash Nelson MD Attending Clinician Ava Schneider MD Attending Clinician MAYANK HERRING Attending Clinician Unavailable ZAK CUMMINGS Attending Clinician Unavailable Harjit Mclean Attending Clinician Jennifer Cárdenas MD Attending Clinician JENNIFER CÁRDENAS Attending Clinician Unavailable LUL ARRIAGA Admitting Clinician Unavailable Payers Payer Name Policy Type Policy Number Effective Date Expiration Date S joe [employer]ET[employer] MEDICARE ADV [id number] 2018 00:00:00 Problems Condition Condition Condition Status Onset Resolution Last Treating Co mments Source Name Details Category Date Date Treatment Clinician Date 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 Center Added automatic ally from request for surgery [id number] Internal Internal Disease Active [facility] di hemorrhoid hemorrhoid 01-21 st s without s without 00:00: Hosp viviana complicati complicati 00 l on on Perianal Perianal Disease Active [facility] di dermatitis dermatitis 01-21 st 00:00: Hospita 00 l Obesity Obesity Disease Active Univers (BMI (BMI 1-10 ity of 30-39.9) 30-39.9) 00:00: [place] [id number] Medical Branch Allergies, Adverse Reactions, Alerts Allergy Allergy Status Severity Reaction(s) Onset Inactive Treating Comm ents Source Name Type Date Date Clinician NO KNOWN Drug Active Univers ALLERGIE Class ity of [facility] Family History Family Member Diagnosis Comments Start Date Stop Date Source Natural father Heart disease [facility] Natural father Hypertension [facility] Natural father Lung disease [facility] Natural father Lung [facility] y of [place] [facility] [place] Maternal uncle Colon cancer [facility] Natural mother Breast cancer [facility] Natural mother Thyroid cancer [facility] [place] Social History Social Habit Start Date Stop Date Quantity Comments Source History of tobacco User of [facility] sity of use smokeless Zeynep SU Gerardo son tobacco Cancer [facility] Gender identity [facility] Sexual orientation [facility] Exposure to 2022-07-21 2022-07-31 Not sure University of SARS-CoV-2 (event) 00:00:00 10:20:00 [place] [facility] Tobacco use and 2021-12-27 2021-12-27 Former smokeless Uni versity of exposure 00:00:00 00:00:00 tobacco user [facility] Cigarettes smoked 2021-12-27 2021-12-27 Univers ity of current (pack per 00:00:00 00:00:00 Rosey Johnson ) - Reported Cancer Ce nter Cigarette 2021-12-27 2021-12-27 University of pack-years 00:00:00 00:00:00 [place] [facility] Alcohol intake 2017-02-19 2017-02-19 Current [facility] 00:00:00 00:00:00 non-drinker of Hospital alcohol (finding) Sex Ass[birth year] At [birth year] [facility] 00:00:00 00:[facility]:00 Hospital Smoking Status Start Date Stop Date Source Ex-smoker 2021-12-27 00:00:00 2021-12-27 00:00:00 [facility] Never smoker General acute hospital Medications Ordered Filled Start Stop Current Ordering Indication Dosage Frequency Signature Comments Components Source Medication Medication Date Date Medication? Clinician (SIG) Name Name meloxicam 2021-08 No 7.5mg Take 7.5 Un leif (MOBIC) 7.5 2-21 12-21 mg by ity of mg tablet 10:29: 00:00 mouth [place] 09 :00 twice MD daily. [facility] meloxicam 2021-08 No 7.5mg Take 7.5 Un leif (MOBIC) 7.5 2-21 12-21 mg by ity of mg tablet 10:29: 00:00 mouth [place] 09 :00 twice MD daily. [facility] meloxicam 2021-08 No 7.5mg Take 7.5 Un leif (MOBIC) 7.5 2-21 12-21 mg by ity of mg tablet 10:29: 00:00 mouth [place] 09 :00 twice MD daily. [facility] meloxicam 2021-08 No 7.5mg Take 7.5 Un leif (MOBIC) 7.5 2-21 12-21 mg by ity of mg tablet 10:29: 00:00 mouth [place] 09 :00 twice MD daily. [facility] meloxicam 2021-08 No 7.5mg Take 7.5 Un leif (MOBIC) 7.5 2-21 12-21 mg by ity of mg tablet 10:29: 00:00 mouth [place] 09 :00 twice MD daily. [facility] pseudoephed Yes Take by Uni vers rine HCl 6-21 mouth. ity of (SUDAFED 11:22: [place] [facility]AL) [facility] pseudoephed Yes Take by Uni vers rine HCl 6-21 mouth. ity of (SUDAFED 11:22: [place] ORAL) [facility] pseudoephed Yes Take by Uni vers rine HCl 6-21 mouth. ity of (SUDAFED 11:22: [place] ORAL) [facility] Center pseudoephed Yes Take by Uni vers rine HCl 6-21 mouth. ity of (SUDAFED 11:22: [place] ORAL) [facility] Center pseudoephed Yes Take by Uni vers rine HCl 6-21 mouth. ity of (SUDAFED 11:22: [place] ORAL) 26 [facility] traMADol 2021- No Malignant 50mg Take 1 U nivers (Ultram) 50 - 12-21 melanoma of tablet (50 ity of mg tablet 00:00: 00:00 [place] chest mouth MD every 6 Anderso (six) n hours as Cancer needed for Center severe pain. traMADol 2021- No Malignant 50mg Take 1 U nivers (Ultram) 50 6- 12-21 melanoma of tablet (50 ity of mg tablet 00:00: 00:00 [place] chest mouth MD every 6 Anderso (six) n hours as Cancer needed for Center severe pain. traMADol 2021- No Malignant 50mg Take 1 U nivers (Ultram) 50 6-21 12-21 melanoma of tablet (50 ity of mg tablet 00:00: 00:00 [place] chest mouth MD every 6 Anderso (six) n hours as Cancer needed for Center severe pain. traMADol 2021- No Malignant 50mg Take 1 U nivers (Ultram) 50 6-21 12-21 melanoma of tablet (50 ity of mg tablet 00:00: 00:00 [place] :[place] chest mouth MD every 6 Anderso (six) n hours as Cancer needed for Center severe pain. traMADol 2021- No Malignant 50mg Take 1 U nivers (Ultram) 50 6- 12-21 melanoma of tablet (50 ity of mg tablet 00:00: 00:00 [place] chest mouth MD every 6 Anderso (six) n hours as Cancer needed for Center severe pain. doxycycline Yes 1{tbl} Take 1 Un leif (ADOXA) 100 5-05 tablet by ity of MG tablet 00:00: mouth [place] 00 daily. [facility] doxycycline Yes 1{tbl} Take 1 Un leif (ADOXA) 100 5-05 tablet by ity of MG tablet 00:00: mouth [place] 00 daily. [facility] doxycycline Yes 1{tbl} Take 1 Un leif (ADOXA) 100 5-05 tablet by ity of MG tablet 00:00: mouth [place] 00 daily. [facility] doxycycline Yes 1{tbl} Take 1 Un leif (ADOXA) 100 5-05 tablet by ity of MG tablet 00:00: mouth [place] 00 daily. [facility] doxycycline Yes 1{tbl} Take 1 Un leif (ADOXA) 100 5-05 tablet by ity of MG tablet 00:00: mouth [place] 00 daily. [facility] diclofenac Yes 1{tbl} Take 1 Uni vers sodium 3-08 tablet by ity of (VOLTAREN) 00:00: mouth [place] 75 mg EC 00 twice MD tablet daily. [facility] diclofenac Yes 1{tbl} Take 1 Uni vers sodium 3-08 tablet by ity of (VOLTAREN) 00:00: mouth [place] 75 mg EC 00 twice MD tablet daily. [facility] diclofenac Yes 1{tbl} Take 1 Uni vers sodium 3-08 tablet by ity of (VOLTAREN) 00:00: mouth [place] 75 mg EC 00 twice MD tablet daily. [facility] diclofenac 2-0 Yes 1{tbl} Take 1 Uni vers sodium 3-08 tablet by ity of (VOLTAREN) 00:00: mouth [place] 75 mg EC 00 twice MD tablet daily. [facility] diclofenac 2-0 Yes 1{tbl} Take 1 Uni vers sodium 3-08 tablet by ity of (VOLTAREN) 00:00: mouth [place] 75 mg EC 00 twice MD tablet daily. [facility] DICLOFENAC 2020-0 Yes [id number] TAKE 1 Univers 75 mg EC 9-17 9104 TABLET BY ity of tablet 00:00: MOUTH [place] 00 TWICE A Medical DAY WITH Branch MEALS DICLOFENAC 2020-0 Yes [id number] TAKE 1 Univers 75 mg EC 6-08 9104 TABLET BY ity of tablet 00:00: MOUTH [place] 00 TWICE A Medical DAY WITH Branch MEALS DICLOFENAC 2020-0 2020- No [id number] TAKE 1 Univers 75 mg EC 6-08 09-17 9104 TABLET BY ity o f tablet 00:00: 00:00 MOUTH [place] 00 :00 TWICE A Medical DAY WITH Branch MEALS DICLOFENAC 2020-0 Yes [id number] TAKE 1 Univers 75 mg EC 4-13 9104 TABLET BY ity of tablet 00:00: MOUTH [place] 00 TWICE A Medical DAY WITH Branch MEALS DICLOFENAC 2020-0 2020- No [id number] TAKE 1 Univers 75 mg EC 4-13 06-08 9104 TABLET BY ity o f tablet 00:00: 00:00 MOUTH [place] 00 :00 TWICE A Medical DAY WITH Branch MEALS DICLOFENAC 2020-0 Yes [id number] TAKE 1 Univers 75 mg EC 1-08 9104 TABLET BY ity of tablet 00:00: MOUTH [place] 00 TWICE A Medical DAY WITH Branch MEALS DICLOFENAC 2020-0 Yes [id number] TAKE 1 Univers 75 mg EC 1-08 9104 TABLET BY ity of tablet 00:00: MOUTH [place] 00 TWICE A Medical DAY WITH Branch MEALS DICLOFENAC 2020-0 Yes [id number] TAKE 1 Univers 75 mg EC 1-08 9104 TABLET BY ity of tablet 00:00: MOUTH [place] 00 TWICE A Medical DAY WITH Branch MEALS DICLOFENAC 2020-0 2020- No [id number] TAKE 1 Univers 75 mg EC 1-08 04-13 9104 TABLET BY ity o f tablet 00:00: 00:00 MOUTH [place] 00 :00 TWICE A Medical DAY WITH Branch MEALS diclofenac Yes [id number] 75mg Take 1 Univers 75 mg EC 9-18 9104 tablet by ity of tablet 00:00: mouth 2 [place] (two) Medical times Branch daily with meals. diclofenac Yes [id number] 75mg Take 1 Univers 75 mg EC 9-18 9104 tablet by ity of tablet 00:00: mouth 2 [place] (two) Medical times Branch daily with meals. diclofenac Yes [id number] 75mg Take 1 Univers 75 mg EC 9-18 9104 tablet by ity of tablet 00:00: mouth 2 [place] (two) Medical times [place] daily with meals. meloxicam Yes Univers 15 mg 8-17 ity of tablet 00:00: [place] [facility] meloxicam Yes Univers 15 mg 8-17 ity of tablet 00:00: [place] [facility] meloxicam Yes Univers 15 mg 8-17 ity of tablet 00:00: [place] [facility] meloxicam Yes Univers 15 mg 8-17 ity of tablet 00:00: [place] [facility] meloxicam 0 Yes Univers 15 mg 8-17 ity of tablet 00:00: [place] [facility] meloxicam 0 Yes Univers 15 mg 8-17 ity of tablet 00:00: [place] [facility] meloxicam 0 Yes Univers 15 mg 8-17 ity of tablet 00:00: [place] [facility] meloxicam 0 Yes Univers 15 mg 8-17 ity of tablet 00:00: [place] [facility] meloxicam 0 Yes Univers 15 mg 8-17 ity of tablet 00:00: [place] [facility] meloxicam Yes 15mg QD Take 15 mg Me thodi (MOBIC) 15 6-[address] mg tablet 12:26: daily. Hospit a 27 l meloxicam Yes 15mg QD Take 15 mg Me thodi (MOBIC) 15 6-[address] mg tablet 12:26: daily. Hospit a 27 l meloxicam Yes 15mg QD Take 15 mg Me thodi (MOBIC) 15 6-[address] mg tablet 12:26: daily. Hospit a 27 l meloxicam 2017-0 Yes 15mg QD Take 15 mg Me thodi (MOBIC) 15 6-[address] mg tablet 12:26: daily. Hospit a 27 l meloxicam 2017-0 Yes 15mg QD Take 15 mg Me thodi (MOBIC) 15 6-[address] mg tablet 12:26: daily. Hospit a 27 l Immunizations Ordered Filled Immunization Date Status Comments [facility] e Immunization Name Name [facility] SARS-CoV-2 2021-11-16 Completed Univer sity of Vaccination (Purple 00:00:00 [facility] [place] Pfizer SARS-CoV-2 2021-11-16 Completed Univer sity of Vaccination (Purple 00:00:00 [facility] [place] Pfizer SARS-CoV-2 2021-11-16 Completed Univer sity of Vaccination (Purple 00:00:00 [facility] SARS-CoV-2 2021-11-16 Completed Univer sity of Vaccination (Purple 00:00:00 [facility] [place] Pfizer SARS-CoV-2 2021-11-16 Completed Univer sity of Vaccination (Purple 00:00:00 [facility] [place] Pfizer SARS-CoV-2 2021-05-25 Completed Univer sity of Vaccination (Purple 00:00:00 [facility] [place] Pfizer SARS-CoV-2 2021-05-25 Completed Univer sity of Vaccination (Purple 00:00:00 [facility] [place] Pfizer SARS-CoV-2 2021-05-25 Completed Univer sity of Vaccination (Purple 00:00:00 [facility] [place] Pfizer SARS-CoV-2 2021-05-25 Completed Univer sity of Vaccination (Purple 00:00:00 [facility] [place] Pfizer SARS-CoV-2 2021-05-25 Completed Univer sity of Vaccination (Purple 00:00:00 [facility] [place] Pfizer SARS-CoV-2 2020-10-11 Completed Univer sity of Vaccination (Purple 00:00:00 [facility] [place] Pfizer SARS-CoV-2 2020-10-11 Completed Univer sity of Vaccination (Purple 00:00:00 [facility] [place] Pfizer SARS-CoV-2 2020-10-11 Completed Univer sity of Vaccination (Purple 00:00:00 [facility] Pfizer SARS-CoV-2 2020-10-11 Completed Univer sity of Vaccination (Purple 00:00:00 [facility] Pfizer SARS-CoV-2 2020-10-11 Completed Univer sity of Vaccination (Purple 00:00:00 [facility] Pfizer SARS-CoV-2 2020-09-20 Completed Univer sity of Vaccination (Purple 00:00:00 [facility] Pfizer SARS-CoV-2 2020-09-20 Completed Univer sity of Vaccination (Purple 00:00:00 [facility] [place] Pfizer SARS-CoV-2 2020-09-20 Completed Univer sity of Vaccination (Purple 00:00:00 [facility] Pfizer SARS-CoV-2 2020-09-20 Completed Univer sity of Vaccination (Purple 00:00:00 [facility] [place] Pfizer SARS-CoV-2 2020-09-20 Completed Univer sity of Vaccination (Purple 00:00:00 [facility] [place] Vital Signs Vital Name Observation Time Observation Value Comments Source Systolic blood 2019-09-23 15:16:00 156 mm[Hg] Univer sity of pressure [facility] Diastolic blood 2019-09-23 15:16:00 103 mm[Hg] Unive rsity of pressure [facility] Heart rate 2019-09-23 15:16:00 96 /min [facility] Body height 2019-09-23 15:16:00 177.8 cm [facility] Body weight 2019-09-23 15:16:00 124.739 kg [facility] BMI 2019-09-23 15:16:00 39.46 kg/m2 [facility] Systolic blood 2019-04-28 18:35:00 154 mm[Hg] Univer sity of pressure [facility] Diastolic blood 2019-04-28 18:35:00 90 mm[Hg] Unive rsity of pressure [facility] Heart rate 2019-04-28 18:35:00 94 /min [facility] Body height 2019-04-28 18:35:00 177.8 cm [facility] Body weight 2019-04-28 18:35:00 124.739 kg Universi [facility] BMI 2019-04-28 18:35:00 39.46 kg/m2 Univers ty [facility] Systolic blood 2022-07-31 16:35:47 148 mm[Hg] Univer sity of pressure [facility] Diastolic blood 2022-07-31 16:35:47 88 mm[Hg] Unive rsity of pressure [facility] Heart rate 2022-07-31 16:35:47 80 /min Universi ty [facility] MD [facility] Body temperature 2022-07-31 16:34:33 36.61 [place] Univ ersity [facility] Respiratory rate 2022-07-31 16:34:33 18 /min Univ ersity [facility] Oxygen saturation in 2022-07-31 16:34:33 98 /min University of Arterial blood by Zeynep wall Pulse oximetry [facility] Body weight 2022-01-29 10:48:00 115.8 kg Universi ty [facility] BMI 2022-01-29 10:48:00 37.60 kg/m2 Universi [facility] [place] MD [facility] Body height 2021-12-27 16:06:00 175.5 cm [facility] [place] MD [facility] Procedures Procedure Date / Time Performing Source Performed Clinician NM DOSING APPOINTMENT 2022-01-29 21:19:11 Abundio Hanson versity [facility] L [facility] PATHOLOGY SURGICAL 2022-01-29 13:11:00 Lul Arriaga [facility] INTERPRETATION [facility] Center EXCISION OF MALIGNANT LESION 2022-01-29 11:30:00 Lul Arriaga [facility] OF TRUNK, [facility] ISOTOPE INJECTION FOR 2022-01-29 11:30:00 [facility] SENTINEL NODE BIOPSY [facility] BIOPSY OR EXCISION OF 2022-01-29 11:30:00 Lul Arriaga [facility] SUPERFICIAL LYMPH NODE MD [facility] on [facility] Center INTRAOPERATIVE LYMPHATIC 2022-01-29 11:30:00 Lul [address] [facility] [place] MAPPING [facility] POC GLUCOSE SCREEN 2022-01-29 11:24:00 [facility] COVID-19 (SARS-COV-2) 2022-01-28 13:39:00 Lul Arriaga Univer sity of [place] PCR-ASYMPTOMATIC [facility] NM LYMPHOSCINTIGRAPHY 2022-01-23 19:30:45 Abundio Hanson [facility] [place] MELANOMA L [facility] XR CHEST 2 VW 2022-01-23 16:33:52 Abundio Hanson [facility] BASIC METABOLIC PANEL, 2022-01-23 15:27:59 Abundio Hanson [facility] [place] CALCIUM TOTAL [facility] COMPLETE BLOOD COUNT W/ 2022-01-23 15:27:59 Abundio Hanson [facility] [place] INDICES L [facility] HEMOGLOBIN A1C 2022-01-23 15:27:59 Abundio Hanson [facility] y of [facility] PROTHROMBIN TIME 2022-01-23 15:27:59 Abundio Hanson [facility] GLUCOSE LEVEL 2022-01-23 15:27:59 Abundio Hanson [facility] y of [facility] BLOOD UREA NITROGEN 2022-01-23 15:27:59 Abundio Hanson [facility] of [facility] ELECTROLYTE PANEL 2022-01-23 15:27:59 [facility] SERUM CREATININE 2022-01-23 15:27:59 Abundio Hanson [facility] .GLOMERULAR FILTRATION RATE 2022-01-23 15:27:[address] [facility] CALCIUM LEVEL TOTAL 2022-01-23 15:27:[address] [facility] EKG, 12-LEAD (SCHEDULED) 2022-01-23 00:00:00 Abundio Hanson [facility] L [facility] SURGICAL PATHOLOGY REQUEST 2021-12-19 15:45:00 [facility] 2021-11-30 00:00:00 Ava Schneider [facility] INTERPRETATION [facility] SURGICAL PATHOLOGY REQUEST 2021-10-17 16:14:00 [facility] XR KNEE <3 VW RIGHT 2019-04-28 18:42:15 Jennifer Cárdenas [facility] Plan of Care Planned Activity Planned Date Details Comments Source Future Scheduled 2022-12-07 Hepatitis C screening [facility] Test 22:28:32 (procedure) [code = [id number]] Future Scheduled 2022-12-07 COLONOSCOPY SCREENING [facility] Test 22:28:32 [code = COLONOSCOPY SCREENING] Future Scheduled 2022-12-07 SHINGLES VACCINES (1 [facility] Test 22:28:32 of 2) [code = SHINGLES VACCINES (1 of 2)] Future Scheduled 2022-12-07 65+ [facility]AL [facility] 22:28:32 VACCINE (1 - PCV) [code = 65+ PNEUMOCOCCAL VACCINE (1 - PCV)] Future Scheduled 2022-12-07 COVID-19 VACCINE (5 - [facility] Test 22:28:32 Booster for Pfizer series) [code = COVID-19 VACCINE (5 - Booster for Pfizer series)] Future Scheduled 2022-12-07 INFLUENZA VACCINE Method [facility] Test 22:28:32 [code = INFLUENZA VACCINE] Future Scheduled 2022-11-05 COVID-19 Vaccination [facility] Test 08:03:57 (5 - Booster for [facility] Pfizer series) [code Center = COVID-19 Vaccination (5 - Booster for Pfizer series)] Future Scheduled 2022-08-26 Hepatitis C screening [facility] Test 20:08:40 (procedure) [code = [id number]] Future Scheduled 2022-08-26 COLONOSCOPY SCREENING [facility] Test 20:08:40 [code = COLONOSCOPY SCREENING] Future Scheduled 2022-08-26 SHINGLES VACCINES (1 [facility] Test 20:08:40 of 2) [code = SHINGLES VACCINES (1 of 2)] Future Scheduled 2022-08-26 65+ P[facility]UMOCOCCAL [facility] Test 20:08:40 VACCINE (1 - PCV) [code = 65+ PNEUMOCOCCAL VACCINE (1 - PCV)] Future Scheduled 2022-08-26 COVID-19 [facility] 20:08:40 Booster for Pfizer series) [code = COVID-19 VACCINE (5 - Booster for Pfizer series)] Future Scheduled 2022-08-26 INFLUENZA VACCINE [facility] Test 20:08:40 [code = INFLUENZA VACCINE] Future Scheduled 2022-08-15 Hepatitis C screening [facility] Test 15:16:08 (procedure) [code = [id number]] Future Scheduled 2022-08-15 COLONOSCOPY SCREENING [facility] Test 15:16:08 [code = COLONOSCOPY SCREENING] Future Scheduled 2022-08-15 SHINGLES VACCINES (1 [facility] Test 15:16:08 of 2) [code = SHINGLES VACCINES (1 of 2)] Future Scheduled 2022-08-15 65+ P[facility]UMOCOCCAL [facility] Test 15:16:08 VACCINE (1 - PCV) [code = 65+ PNEUMOCOCCAL VACCINE (1 - PCV)] Future Scheduled 2022-08-15 COVID-19 VACCINE (5 - [facility] Test 15:16:08 Booster for Pfizer series) [code = COVID-19 VACCINE (5 - Booster for Pfizer series)] Future Scheduled 2022-08-15 INFLUENZA VACCINE Method [facility] Test 15:16:08 [code = INFLUENZA VACCINE] Future Scheduled 2022-08-15 Hepatitis C screening [facility] Test 15:16:08 (procedure) [code = [id number]] Future Scheduled 2022-08-15 COLONOSCOPY SCREENING [facility] Test 15:16:08 [code = COLONOSCOPY SCREENING] Future Scheduled 2022-08-15 SHINGLES VACCINES (1 [facility] Test 15:16:08 of 2) [code = SHINGLES VACCINES (1 of 2)] Future Scheduled 2022-08-15 65+ PNEUMOCOCCAL [facility] Test 15:16:08 VACCINE (1 - PCV) [code = 65+ PNEUMOCOCCAL VACCINE (1 - PCV)] Future Scheduled 2022-08-15 COVID-19 [facility]ACCINE ([facility] - [facility] 15:16:08 Booster for Pfizer series) [code = COVID-19 VACCINE (5 - Booster for Pfizer series)] Future Scheduled 2022-08-15 INFLUENZA VACCINE Method [facility] Test 15:16:08 [code = INFLUENZA VACCINE] Future Scheduled 2022-08-14 Hepatitis C screening [facility] Test 19:16:27 (procedure) [code = [id number]] Future Scheduled 2022-08-14 COLONOSCOPY SCREENING [facility] Test 19:16:27 [code = COLONOSCOPY SCREENING] Future Scheduled 2022-08-14 SHINGLES VACCINES (1 Met [facility] Test 19:16:27 of 2) [code = SHINGLES VACCINES (1 of 2)] Future Scheduled 2022-08-14 65+ [facility] 19:16:27 VACCINE (1 - PCV) [code = 65+ PNEUMOCOCCAL VACCINE (1 - PCV)] Future Scheduled 2022-08-14 COVID-19 VACCINE (5 - [facility] Test 19:16:27 Booster for Pfizer series) [code = COVID-19 VACCINE (5 - Booster for Pfizer series)] Future Scheduled 2022-08-14 INFLUENZA VACCINE Method [facility] Test 19:16:27 [code = INFLUENZA VACCINE] Future Scheduled 2022-08-01 COVID-19 Vaccination [facility] [place] Test 08:58:34 (5 - Booster for [facility] Pfizer series) [code Center = COVID-19 Vaccination (5 - Booster for Pfizer series)] Future Scheduled 2022-08-01 COVID-19 Vaccination [facility] [place] Test 08:58:34 (5 - Booster for [facility] Pfizer series) [code Center = COVID-19 Vaccination (5 - Booster for Pfizer series)] Future Scheduled 2022-08-01 COVID-19 Vaccination [facility] [place] Test 08:58:34 (5 - Booster for [facility] Pfizer series) [code Center = COVID-19 Vaccination (5 - Booster for Pfizer series)] Future Scheduled 2022-08-01 COVID-19 Vaccination [facility] [place] Test 08:58:34 (5 - Booster for [facility] Pfizer series) [code Center = COVID-19 Vaccination (5 - Booster for Pfizer series)] Encounters Start End Encounter Admission Attending Care Care Encounter Source Date/Time Date/Time Type Type Clinicians Facility Department ID 2021-12-19 Outpatient SYSTEM, [facility] [id number] 11:00:15 PROVIDER Kevon haroldo 2022-07-31 2022-07-31 Follow-Up Lul Arriaga 1.2.840.1 [id number] [facility] 10:40:00 11:00:00 Abundio Hanson 01491.1.1 ity of 3.412.2.7 [place] .3.532370 MD [facility] 2022-07-31 2022-07-31 Follow-Up Lul Arriaga 1.2.840.1 [id number] [facility] 10:40:00 11:00:00 Abundio Hanson 43119.1.1 ity of 3.412.2.7 [place] .3.278551 MD [facility] 2022-07-31 2022-07-31 Travel 1.2.840.1 1.2.489.883 [id number] [id number] [facility] 00:00:00 00:00:00 12723.1.1 350.1.13.41 ity of 3.412.2.[place].698 [place] .[place].44[place]1 084.8 MD [facility] 2022-07-31 2022-07-31 Travel 1.2.840.1 1.2.105.600 1443 [id number] [facility] 00:00:00 00:00:00 11832.1.1 350.1.13.41 ity of 3.412.2.[place].698 [place] .3.490346 084.8 MD [facility] 2022-02-04 2022-02-04 Lupe Arriaga 1.2.840.1 [id number] [facility] 00:00:00 00:00:00 Only Lul Lockett 49531.1.1 ity of 3.412.2.7 [place] .3.062923 MD [facility] 2022-02-04 2022-02-04 Lupe Arriaga 1.2.840.1 [id number] [facility] 00:00:00 00:00:00 Only Lul Lockett 07185.1.1 ity of 3.412.2.7 [place] .3.419260 MD [facility] 2022-01-29 2022-01-29 [facility] Bart, 1.2.840.1 [id number] Univers 05:35:00 11:06:00 Encounter Lul Lockett 78707.1.1 it y of 3.412.2.7 [place] .3.191669 MD [facility] 2022-01-29 2022-01-29 [facility] Arriaga, 1.2.840.1 [id number] Univers 05:35:00 11:06:00 Encounter Lul Lockett 36775.1.1 it y of 3.412.2.7 [place] .3.552499 MD [facility] 2022-01-29 2022-01-29 Surgery Arriaga, 1.2.840.1 [id number] Univers 07:00:00 09:50:00 Lul Lockett 25900.1.1 ity of 3.412.2.7 [place] .3.369462 MD [facility] 2022-01-29 2022-01-29 Surgery Arriaga, 1.2.840.1 [id number] Univers 07:00:00 09:50:00 Lul Lockett 87646.1.1 ity of 3.412.2.7 [place] .3Sera474066 MD [facility] 2022-01-29 2022-01-29 Anesthesia Lakeisha, 1.2.840.1 [id number] Univers 06:55:00 09:01:00 Event Aliyah 48447.1.1 it y of 3.412.2.7 [place] .3Sera414437 MD [facility] 2022-01-29 2022-01-29 Anesthesia Lakeisha, 1.2.840.1 [id number] 10 [id number] Univers 06:55:00 09:01:00 Event Aliyah 22129.1.1 it y of 3.412.2.7 [place] .3.854847 MD [facility] 2022-01-29 2022-01-29 Ancillary Nickolas, 1.2.840.1 [id number] 10 [id number] Univers 07:00:00 07:30:00 Procedure Abundio Mendez 03152.1.1 ity of 3.412.2.7 [place] .3.260529 MD [facility] 2022-01-29 2022-01-29 Ancillary EL Mckenzie, 1.2.840.1 [id number] 10 [id number] Univers 07:00:00 07:30:00 Procedure Abundio Mendez 91008.1.1 ity of 3.412.2.7 [place] .3.442317 MD [facility] 2022-01-29 2022-01-29 Travel 1.2.840.1 1.2.128.004 [id number] [id number] Univers 00:00:00 00:00:00 36764.1.1 350.1.13.41 ity of 3.412.2.[place]7.3.698 [place] .3.150802 08Cristofer.8 MD [facility] 2022-01-29 2022-01-29 Orders Nickolas, 1.2.840.1 [id number] Univers 00:00:00 00:00:00 Only Abundio L 55681.1.1 i ty of 3.412.2.7 [place] .3.756913 MD [facility] 2022-01-29 2022-01-29 Orders Mckenzie, 1.2.840.1 [id number] Univers 00:00:00 00:00:00 Only Abundio L 08563.1.1 i ty of 3.412.2.7 [place] .3.340728 MD [facility] 2022-01-29 2022-01-29 Travel 1.2.840.1 1.2.899.482 [id number] [id number] Univers 00:00:00 00:00:00 61912.1.1 350.1.13.41 ity of 3.412.2.[place]7.3.698 [place] .3.936585 084.8 MD [facility] 2022-01-28 2022-01-28 Anesthesia Craft, 1.2.840.1 [id number] 10 [id number] Univers 23:59:59 23:59:59 Event Tessierose 88551.1.1 i ty of D 3.412.2.7 [place] .3.878167 MD [facility] 2022-01-28 2022-01-28 Anesthesia Craft, 1.2.840.1 [id number] Univers 23:59:59 23:59:59 Event Tessierose 55789.1.1 i ty of D 3.412.2.7 [place] .3.279908 MD [facility] 2022-01-28 2022-01-28 POEM Nickolas, 1.2.840.1 [id number] [id number] Univers 16:00:00 16:30:00 Appointmen Abundio L 63320.1.1 ity of ts 3.412.2.7 [place] .3.506252 MD [facility] 2022-01-28 2022-01-28 POGADIEL Hanson, 1.2.840.1 [id number] [id number] Univers 16:00:00 16:30:00 Appointmen Abundio L 88213.1.1 ity of ts 3.412.2.7 [place] .3.127427 MD [facility] 2022-01-28 2022-01-28 Clinical Abundio Hanson 1.2.840.1 10 [id number] Univers 09:00:00 09:00:00 Support Fuentes Brown 56975.1.1 ity of 3.412.2.7 [place] .3.250712 MD [facility] 2022-01-28 2022-01-28 Clinical Abundio Hanson 1.2.840.1 10 [id number] Univers 09:00:00 09:00:00 Support Fuentes Brown 37497.1.1 ity of 3.412.2.7 [place] .3.819141 MD [facility] 2022-01-28 2022-01-28 Travel 1.2.840.1 1.2.220.790 9940 [id number] Univers 00:00:00 00:00:00 03271.1.1 350.1.13.41 ity of 3.412.2.[place]7.3.698 [place] .3.950025 084.8 MD [facility] 2022-01-28 2022-01-28 Travel 1.2.840.1 1.2.438.402 2861 [id number] Univers 00:00:00 00:00:00 72911.1.1 350.1.13.41 ity of 3.412.2.7 [place]7.3.698 [place] .3.736663 084.Dmitry [facility] 2022-01-23 2022-01-23 Ancillary Mckenzie, 1.2.840.1 [id number] 10 [id number] Univers 13:30:00 15:30:00 Procedure Abundio L 35950.1.1 ity of 3.412.2.7 [place] .3.847234 MD [facility] 2022-01-23 2022-01-23 Ancillary Mckenzie, 1.2.840.1 [id number] 10 [id number] Univers 13:30:00 15:30:00 Procedure Abundio L 50906.1.1 ity of 3.412.2.7 [place] .3.466124 MD [facility] 2022-01-23 2022-01-23 Ancillary Mckenzie, 1.2.840.1 [id number] 10 [id number] Univers 11:45:00 12:00:00 Procedure Abundio L 27331.1.1 ity of 3.412.2.7 [place] .3.713828 MD [facility] 2022-01-23 2022-01-23 Ancillary Nickolas, 1.2.840.1 [id number] 10 [id number] [facility] 11:45:00 12:00:00 Procedure Abundio Mendez 01951.1.1 ity of 3.412.2.7 [place] .3.365230 MD [facility] 2022-01-23 2022-01-23 Outpatient [facility] [id number] 10:35:24 11:11:23 [facility] 2022-01-23 2022-01-23 Outpatient [facility] [id number] 10:15:50 10:23:44 [facility] 2022-01-23 2022-01-23 Travel 1.2.840.1 1.2.446.710 [id number] [id number] Univers 00:00:00 00:00:00 06021.1.1 350.1.13.41 ity of 3.412.2.[place].3.698 [place] .3.[place]268 084.8 MD [facility] 2022-01-23 2022-01-23 Travel 1.2.840.1 1.2.585.935 3836 [id number] Univers 00:00:00 00:00:00 77820.1.1 350.1.13.41 ity of 3.412.2.[place]7.3.698 [place] .3.171984 084.8 MD [facility] 2022-01-04 2022-01-04 Telephone Horacio, 1.2.840.1 [id number] 1093 [id number] Univers 00:00:00 00:00:00 Macaela T 82501.1.1 it y of 3.412.2.7 [place] .3.374702 MD [facility] 2022-01-04 2022-01-04 Telephone Horacio, 1.2.840.1 [id number] 1093 [id number] Univers 00:00:00 00:00:00 Corrine Mcintosh 65032.1.1 it y of 3.412.2.7 [place] .3.672395 MD [facility] 2021-12-27 2021-12-27 Office Bart, 1.2.840.1 [id number] Univers 11:00:00 12:53:04 Visit Lul Lockett 10300.1.1 ity of 3.412.2.7 [place] .3.728514 MD [facility] 2021-12-27 2021-12-27 Office Bart, 1.2.840.1 [id number] Univers 11:00:00 12:53:04 Visit Lul Lockett 27237.1.1 ity of 3.412.2.7 [place] .3.757149 MD [facility] 2021-12-27 2021-12-27 NPR Bart, 1.2.840.1 [id number] Univers 10:15:00 10:15:00 Lul Lockett 04438.1.1 ity of 3.412.2.7 [place] .3.307294 MD [facility] 2021-12-27 2021-12-27 NPR Bart, 1.2.840.1 [id number] Univers 10:15:00 10:15:00 Lul Lockett 42862.1.1 ity of 3.412.2.7 [place] .3.165297 MD [facility] 2021-12-27 2021-12-27 Travel 1.2.840.1 1.2.885.609 9317 [id number] Univers 00:00:00 00:00:00 92910.1.1 350.1.13.41 ity of 3.412.2.[place].3.698 [place] .3.564703 084.8 MD [facility] 2021-12-27 2021-12-27 Travel 1.2.840.1 1.2.812.590 7155 [id number] Univers 00:00:00 00:00:00 46742.1.1 350.1.13.41 ity of 3.412.2.[place]7.3.698 [place] .3.279110 084.8 MD [facility] 2021-12-25 2021-12-25 Lab Abhilash Nelson 1.2.840.1 [id number] Univers 00:00:00 00:00:00 Ava Dooley 79349.1.1 ity of n 3.412.2.7 [place] .3.485735 MD [facility] 2021-12-25 2021-12-25 Orders Mckenzie, 1.2.840.1 [id number] [id number] Univers 00:00:00 00:00:00 Only Abundio L 82206.1.1 i ty of 3.412.2.7 [place] .3.678691 MD [facility] 2021-12-25 2021-12-25 Prep for Mckenzie, 1.2.840.1 [id number] Univers 00:00:00 00:00:00 Surgery Abundio L 04880.1.1 i ty of 3.412.2.7 [place] .3.986652 MD [facility] 2021-12-25 2021-12-25 Lab Abhilash Nelson 1.2.840.1 [id number] Univers 00:00:00 00:00:00 Ava Dooley 15576.1.1 ity of n 3.412.2.7 [place] .3.292485 MD [facility] 2021-12-25 2021-12-25 Orders Nickolas, 1.2.840.1 [id number] 1092 [id number] Univers 00:00:00 00:00:00 Only Abundio L 76081.1.1 i ty of 3.412.2.7 [place] .3.167053 MD [facility] 2021-12-25 2021-12-25 Prep for Nickolas, 1.2.840.1 [id number] [facility] 00:00:00 00:00:00 Surgery Abundio L 50033.1.1 i ty of 3.412.2.7 [place] .3.456406 MD .8 [facility] 2021-12-19 2021-12-19 Outpatient NEVAEH, [facility] [id number] [place] 00:00:00 00:00:[address] 2021-12-19 2021-12-19 Travel 1.2.840.1 1.2.704.380 [id number] [facility]i 00:00:00 00:00:[address] 3.430.2.7 0.2.7.3.698 [facility] spita .3.128988 084.8 l .8 2021-12-19 2021-12-19 Travel 1.2.840.1 1.2.854.687 0505 [id number] [facility] 00:00:00 00:00:[address] 3.430.2.7 0.2.7.3.698 Ho spita .3.983759 084.8 l .8 2021-10-17 2021-10-17 Outpatient NEVAEH, [facility] [id number] [place] 00:00:00 00:00:[address] MAYANK [address] 2021-10-17 2021-10-17 Travel 1.2.840.1 1.2.247.715 2830 [id number] [facility] 00:00:00 00:00:[address] 3.430.2.7 0.2.7.3.698 Ho spita .3.811935 084.8 l .8 2020-10-11 2020-10-11 Outpatient Cameron [facility] [id number] [facility] 10:20:00 10:20:00 ZAK [facility] 2020-09-20 2020-09-20 Outpatient Cameron [facility] [id number] [facility] 09:30:00 09:30:00 ZAK [facility] 2020-04-26 2020-04-[address] [facility] 1.2.840.114 [id number] Univers 00:00:00 00:00:00 [facility] 350.1.13.10 it y of Surgical 4.2.7.2.686 Noah as Specialti [id number] Me dical es 198 [facility] 2020-01-15 2020-01-15 [facility] 1.2.840.114 [id number] Univers 00:00:00 00:00:00 [facility] 350.1.13.10 it y of Surgical 4.2.7.2.686 Noah as Specialti [id number] Me dical es 198 [facility] 2019-11-22 2019-11-22 [facility] 1.2.840.114 [id number] Univers 00:00:00 00:00:00 [facility] 350.1.13.10 it y of Surgical 4.2.7.2.686 Noah as Specialti [id number] Me dical es 198 [facility] 2019-09-23 2019-09-23 Office Harjit [facility] 1.2.840.114 [id number] Univers 09:14:13 09:29:13 Visit Jennifer Cárdenas [facility] 350.1.13.10 ity of Surgical 4.2.7.2.686 Noah as Specialti [id number] Me dical es 198 [facility] 2019-09-23 2019-09-23 Letter [facility] 1.2.840.114 [id number] Univers 00:00:00 00:00:00 (Out) [facility] 350.1.13.10 it y of Surgical 4.2.7.2.686 Noah as Specialti [id number] Me dical es 198 [facility] 2019-07-21 2019-07-21 Outpatient MELIA [facility] [id number] Univers 14:36:21 23:59:00 JENNIFER weaver [facility] 2019-04-28 2019-04-28 [facility] Melia [facility] 1.2.840.114 [id number] Univers 13:42:14 23:59:00 Encounter Jennifer Mendez [facility] 350.1.13.10 ity of Surgical 4.2.7.2.686 Noah as Specialti [id number] Ia dical es 809 Brenda Glover 2019-04-28 2019-04-28 [facility] KRYSTYNA Cárdenas 1.2.486.636 [id number] Univers 13:30:10 14:01:04 Visit Jennifer Mendez [facility] 350.1.13.10 it y of Surgical 4.2.7.2.686 Noah as Specialti [id number] Ia dical es 198 [place] Results Test Description Test Time Test Comments Results Result Comments Source Pathology Surgical Interpretation 2022-02-04 12:35:52 Test Item Value Reference Range Interpretation Comme nts Submitted q7foaZYbRWCoy3rkZLNwiCHgMgXrDcHkRvMfAvrwySJcXKqyicPeMDlua5RfI6OfDnTdGLinvtCcGQKh ZmtrtowaZFHuNEK2xlCjMJMfLHlhHMHmYVxdLw2gqDZlgYksTwHiZDFhn9duqjWFkluvlZm2g5jrLXRo TaE1gZTfTLdwW1lzheZhgBUgNMUxQAl6nF18RIAnwE8 Clinical ibOKwTGygocBlJdY6DJkbBDRxYiS4MDEycMGuSSOhQ9vfUHTrULbyNSQhDZhswTHdYRG0zCdkf5V5lEJ qxNHeaMghRgEyGgLyIlJZr3KaPHh4gGwwA4OzDGIfObZ8iXYaZXGcOJmtDGWiPBPxvgV0vE28QWscgfF 9pQPgv5Eaz92nm368tL6vtQTcCNP9IDMpGRUtaSCiSP History NpRIF6YZLzxEAoN4hqRSQnHB5ydxytGIvyGQblGPFfdLJ1XINydXYbT7PsQMMaUYhjMIHtuge1NoOvIc 3fuXDyoDujNDxmi1rtm0pnlWAiKbl4ZXDfJeWbCebyTQmfw2Aba7wsBNXwmf3gBCR7nUXwnOjtn3G7xS SlVOSkwNOveaAyHHNwDyJ0GYsdGE4qdf97ANMuDMW9e (test code n4isEDhzGwygmRnjNXzNPygJ7RzQHOli072HZYiV2MqPCZii1Y0ljGnYrPzOCJnmJK9hxP5KSEwJGj4k OSvunN3roRyeBRgN8xdnV9wCIOwWP4uaioxe5eqQJdlAShfWVVfgIL2zkG5RBKcdFNrS5BdoX0pOYGxC OtgQZTtrgq6AfTtUp6xfFTcwUmbAZscUaaiRMgdSRKl = 71735) npNktfVmeAqbYRNqVFVbGQtiHYAfVEvzLEBsXVRsVlOdvMklaSnwoO4tNqAvIcCqAGrqLS5eLLPrI0pg lYUzMHLtSZAiR3zcWeAooZ9xdPxmWRjpwdLaQG8mjUckkaImeSNoLLzhfc7zMJClLxZpn6zoXQ8mOCNa AFW2GFnAJFVrQIwxYREhHSkeREEoLOSaDcOioEHqEdM aZcKmhXnlxPyeWBtdKqWzMYLiBQuhK6rgDeFfReDaYgyoFCG8yC== Diagnosis g7nyoMNxRPTjrQR3OWIwJBTak9onl0ExgBHebGWmQLqaqXFfctFtxb00pAV8wF82AN4rLQMtZoX6HMBp oqH2Liu9UDGuSTAhqSGvY537m3roo8jrojFpuCB6FYNkKTYdL2PjXB2pBJQxpSXkV32tjXQwVQS7LOBd QOPnkVEsWJZzHBN8KVDmkECcG0pgPCGlWA2wbbnmITq (test code gWDsoXNUkcYV5NSIkxHJcO8AqNTQqCWkzKIWpmmj8BkTmUo3xiOAltAmwYDuqSLSbQVQbHFneFWMyLrF nH4NyYZW0RGJcP7f4RZD0hUnlOEK1WVIclcCytnPoDSi8pZYfUT0uPASjWhVsVRAti6ZpUV4wTBFhwGW gYLS4QQChlt3yUYB6BqiivOpueIbwKCXvMHT4c989Bb = 34) giYHHcsKm2QvDanVhxWfLgKVScJMHXmmXwwPuykQzepv6sUTkffLEiWF3oyUMqnj42XJstAS30iXCqBX RxKNUdOSmeFCComfLYRDUcI63ktJFbsQ7yBRknIIYssNhaXIpiodAvoXDqYZJcNKIHTfGRfDeuqTHebC QrvAkqh1wabfRnvOepjRKaMkbqSZMzdJe3UsDncFdbT jFqCXWxTHGPr7qiNMItMITdxDXkvSIhqdA7iVEmWWlzTLwbamxss0DzU8xdVRluj246eaObg3Cxpb2wz JLnBZVAB0ARQUlEAcAHUWMIXREIOGBISk3ZPTCGVX0POYGIM64TXVBUKQGTNS4AKUWFIJWEPaIQDVRdm dYTKwMKPS9NLCPFLEEGNsBNGljsTN3bEQ8LDyWvC4sU ZmeeDGBOZVn4ZYsOTTHaalNKBEOgS8DwxJ6mYVEzbVksyKEki2BrGYGkx3jsRinmdE8qSLiaH1bvOM98 CPvlJEIuuAnpm7Szy1XxdCDcOkOkHLIhhM0kuTKaBHDhqzPExHi9sDGiY8OxLEBthXprC0RfnGIbwvHc zoAsAm4jQYagEHPxxdHjg2z9qXgpRFK5m4maksC2j3X snd7vxEyoOWXYNVRcJ15ygSVhhU6pqQChzG== Comment q8ezyJJwYKOmrOC1LTGoPIXal4jfr7CqeIKuyPKpFEkcjXUpocCmlk55eQA4jP45OH0gYXTcEiH5YCJe slD8Wkq0WQXlMVXshRImB104b9wfj0coozBwaRQ2gXdgOXEgzpvjIbS0XKahMEZhqotrIUx4FGhsKOOh oFM5SIVkmRCdC8WpICUoPH1geys6YXT9BVkrEERrOnP (test code 5IQQiaMRuUZWqyLikBMlvc103RTO6TeJxWHFdhxSfjWcnmG2dGxClXRALWjGUpMRtgV7evItsbcEvInL kSWAlpMomitPlGDXlx8X7MPTpPFMipALbJJ0zDYYzeKFkQG8gX6x6iOHnK07xr8IglVnbMSzEHdT2MCZ rbmXnGE3OQuNlSFVlTMCmhaEaHDJ4ov6kgZ2bd1HxZD = 9835) khvDTry5odx4EbO8wjxCnkGJaiv7A3VMtiNuFyqLFrsD5eksZ3YYVaUO6qjIFmiFD0yISkgSXdMW3erO BrGZLkbOByXDUsltUPHkAEjUUjhIDqr5PpCF9nBGCbhK4qrNNxJ7VuhLKpff3zdERdatG9aQ1aWOcdxE rtd7nyL9s5aZxvRXjbIxQgBA87JT4baeHrs3rnT3dtf kLjubDqk8FwDXWbqzXagU0jl0ErIcmeED9hQSG0ZkTRPOkvdt5xwPYhLmJfl9XlaAFbhELpLG7QIQUkD G5nFWVibTdjmTdga4JppjAaBGaqHE6cWUYOEKTlAMvkyDDpn8xjp0QbL9mgkVtoVAbkf0H9PNdbmvMws OjtdTjsuSQbdDqsVNFrwa8upTCbyPaeQCfaKWAiUVns raCgfhIfgA0yqxEVMQflp2UiiY4klEgrHqM8zGCasYCaj7QhQ2Cik5BvrC1rg5r1bDVnmpFksQ25QNJf bhJlnWQkZN3jaBCsODdygRpyDQQmXBYpzAheMOnwKRIbTWeqIBPnbiNVUETpshDsUODbNR29vZJfuTdu vdZpOGUmdyHjNVPnTAZuWMEcBKWzVFRatbBeIJV6drH hWuIpRJzgN90vivIapTEjZM9zY1y6ILAqwZ1aVNNoGJRhEFBdGPAurU6aDFFqv2DnTCMal82wy0j7gTV rPR4zbZOmYPJ7tmWbdQDqKYHiGD7hMGZpURQoIm5fXHfzvXM3HGVbb8KiZoKhthMculSqgQZjPWLsqgM 3kXVtgOIbr0XjLI8jgsRzo4FhLgZjl6kheoT9hMrru1 8qd1CvIHjuKSH1 Synoptic MELANOMA OF THE SKIN: Excisi on, Re-ExcisionMELANOMA OF THE SKIN: EXCISION, RE-EXCISION - All [id number] Edition - Protocol posted: 02/07/2021 SPECIMEN Procedure: Excision Procedure: Richton node(s) Checklist biopsy Specimen Laterality: Right TUMOR Tumor Site: Skin of trunk: Chest, medial inferior 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) Maximum Tumor (test code ([place]) Thickness (Millime ters): 1.6 mm Macroscopic Satellite Nodule(s): Not identified Ulceration: Not identified Anatomic (Jarrett) Level: IV (Melanoma invades reticular dermis) Mitotic Rate: 3 mitoses = 9864) per mm2 Microsatellite(s): N ot identified Lymphovascular Invasion: Not identified Neurotropism: Not identified Tumor-Infiltrating Lymphocytes: Present, nonbrisk Tumor Regression: Not identified MARGINS: Margin Status for Invasive M elanoma: All margins negative for invasive melanoma REGIONAL LYMPH NODES: Regional Lymph Node Status: : All regional lymph nodes negative for tumor Total Number of Lymph Nodes Examined: 1 Number of Sentin el Nodes Examined: 1 PATHOLOGIC STAGE CLASSIFICATION (pTNM, AJCC 8th Edition): : Classification assigned in this report includes information from a prior procedure: [id number] pT Category: pT2a pN Category: pN0 Gross s1afqAMyBKVhmUVDSShcHLfykyAhXOVjtIFiH1QggohvWRizAA1gDB9gbKbwwDKzoWNtOI1OTWJoXsMf LURmlXUrgyGbFiRhSMXdgOAiuGK8CJYeHP9khryiEGhbZMxmNKNzcjP3NHQyfUAfA5IvISRvGM5ztscx CEW4XHjqhM4aemFVOfdnFe1iiFVsqDsgJcFuKyQqSDM Descriptio lXNOhIGXmgNjnUFJnBKa6rN9JQwafE86fq9K7Uxp0DVGiUQUmC8JrOM3pUANusKUuG20BFuisRPK9RZR GRouoYHOmCL8Vg5ofDLExeXCfRVB1BSlpbFXuFGXfRFHwQZg5YEGmZYjbsJCjHI1poNvzIikwaAyqt4S crCJsFMwrWVUvXFIrOPfaGZHqNQ0HRkRoRJTbVpX2Yu n (test MiJEu1KDf7MW2YVrQpQEFcEAAkJiE1UQAzJNh0DOidHH8WONRiHuRtXXCsEUGzUEPdKFXdLCy9XCMjJM gyMBPzzOKeQMntJwVaXGFuLDdjQjVmKICgZDnsswG6OACoWCkgQOAgVgZpVOHZQfjpDAEtKGjdsIiweF 1rOOWfM58at8REb1MoLX8EZBe0osKxrktztM2tJGBid code = pObIZlpvANwD5rnDtapBgTrBiLlSWBYEX52wG4yuXRohX3mdJUoy2JqYIDupHghnIEzyUtevezplAGbN DkjdOrzsfzsd9VoqQjtSWqflFxrqIcpjh4cAIBlIRVlAExlxJRogtLsCaz3ODirSZacbux0ve1yIzh7F AOncNVqtLHtKI28NPJvNAVdZRLlJHhfb0TseCxvaqzw 0898125467 LiqtFOCeTtCwbgD2JQPbWJB2KVPcNHSAERDcQXO5GEFsQmQ9QQLcKVPkmZIxfG1gtHJsq9AiVskfVVDk FGyefFHeMLCFN4UCB30fX65CPRusQCFamHmiJSHiMLa9DnXoFMJ8RtHwBQksUXTrTANbf7DbDbigLOq1 uJWoLD6zGIEcn0SrmLgwveKiJkIhTQDkr6BtJ7W4NFD ) xHPwjl3qzOBLxKXdkx8JqEUtYTASSKY4OZU3ovDK4CPiLF7MPD4fPnCIuCWL8aEL5DUCFDqcijSC4nWI 4pR79CYUoJIGmpNTrDAliT536M0T7UFZyFMwdx5rmPAHpHWqlf6OwAVlDJVOGYJ8GRF8zzKD4YGuRO0X XFUibUFPzTjjynNDIYJS3RTwfpExjhLi6v4mprDXbo5 s1BSqyGRQ5wIptsJZdygzkdEYtcSnlwfHoUW0GVEAztSGWQAL1ZS9uSIm9GXyfXIUgV4PqM2HcerCplV EnJNKgkoSrd2ioQWJ4KFCnjZXsuPNnIjDrVygqRHE8EZArBYqsIP4Fq9vzZBIreBMsVYK9HBiscISmQE JaVIGiRKjvPuWxQ9ANTDFwXRQtPKDbGOXiOOs7DDytW 2LKEETfCIL6ZKMiHXEoTpM5CDt0VIPCQx7eBYS1MGO2GdpwUpJ5LXU4JYNiQLPfFiAcOZDpGEDfJGnoX LhhyfMlDUPeYSUvZNtdScslMMsyD35rnEmqsG6sKlkeovCpCVT3QUFhnkHFEttspLEuvanjrFgmMaXrw ERvYzEgDQpcbHRycGFyXGxpbjBccmluMCANClxsdHJj rPqbRASaLPiursZgULLeVJP5XQJkdVcbbTarv3ftSCHmE5m8LFZtDOE5GZ0jyAXca55vZGJboJ7bjJKv fSp7M0hpf0XhPNCjj2GsXWtuhxkyh0NibLYjWUPqN3i4WRlhkTWwBNyiDNroYNOpTP4qfxBiANJtFiGv f9PgHJpqFdDbFhnfTXJwPXW0YcLvzPStIgIuzWHpRth iG35bWLsnjBAlFLVzDeM3KI6bn6bnqyI7tQG1TFaqTW7urGNriELxYFyubYqwULMouS6osAFmfBh7M8o wCCKjy5AlBIDrv5ZySC1jWREnvQ9iQnPwbUu1D0ayFCDfbasmfWLzeIL8KEBkuJ6zTR6xEYIkZBGcraZ 9jBVdv4RsJgLsJCBiBiF6eFBwf8teiyJsspRqKOVeCM B8VWDmTZEjkFZ9mAd3WSnbIovyzUzjJ6zkM5IiGKXlkQSzitjslOBzZrakrZE4GJRagDChq5Uahn28en NyJHAdyVHgEHZkXuH2FWGcFIJyxYTuqsRrQG6wBXDupfvmoNCzIO7ubTXkjH8sKS2mc2F1hyTbVQP8EA MtvZGfMUmeAcGbAVieLRVjxPbeRRDuHHUes07sdKFvh oTeXDKdbTYzAQXjXFpwqHifobSeKnJxY14lXtHpdTV1nUVvk0OnSFIlu7NzoVVeJ7fpWSCbGpQmY23fV vWuiMN9uZHwaZEvnQMuYCUtohSkZA8ltnpglowhFi9jDAAzUSIxd02jzOuhVYodRkOwzC0hSO4xwmblw kojQC0sTGDfICKckZOhly2uJDLyAMSbnJafyQFbIZGt itXtLV7xngcpgg0yWEVvJAIxxOCftB5umpMtozRvbrmiSZUbosOhn3AkuUfwtqYeXfFukNsiVGIijOof RFTPRgwqC55PROlmEzo5EI5pDJU3AJjbcKZpDLy5QA8gHQ2tCE4jnAbxkGZnLVPzgcLkRPdrqdSzEOXp geMCBmo2DBKcU6WLKCkXOaQDM9JZDgJEEMa9FUBaKGG pJgy4a4DwRXBge1XalNxiKXIqarbql5viTVO8eYdbZwOeuGbtXTVmHWt3IvexCiRvzV0mOAIebDydtR6 fOPZpYVFllLR7GIZvCIO0PtDyADxlMVKmNOBwSU0nldcowhwxhZ7wTDGuSJFloRV9UTE0BXB3TzIqNVp xGTOEZNStYPF2SgAwTDpfJCCpduVdhtYdyYGecF4oBA gxHMDlNHHtcQ0za3VzXT9dZvFxhrDvu0RyzGc1pKAyOSFuq85ko4ZmQXVei8QcoX5ivQ9vKWJzu4IhcY 9sd3SiBKMyZPUboVIexNGcbIjlSedxtER2NTpqZfitiI4weQEXIBBMQwfTBwjxbbQwEA9XXP3PEhGASH 31JpZiUWU7BZqJF8LPwMQ1Tdr7GYz7nOduLmzvqzIbu GRdIwQFsO9EVtxeAmywqYX6JMfvBkuceH0olHVNIBGJMzhWPwqcluEpEA7YWF4SNZ6NtUAvVIK5vDK9B NPUNxexsPE7tUY7uX00TYScWNXadDUyGTplN149JMXpVPjtWMj0buOeXSMiCoAiYLkaKQPjG53yn5QJy 3YqWYOqs6wwkQghm3XpoTBaARfkKOSmuPGdGUdkyB0b ZpKbz8oaySx6JTmttcV5XPTssv6utFnhrC5lUQjie0vdNWN8FYLadLTlzIItDCtojEotiB6vVkXoZfy7 QNqtQDNjP2GzB3YyhyG1XCAyYVzlMRSxTJPgMFs8 Biomarker i8pbgPNkWHVdtSR5ZXZtGJKcu7aqw6GqxFFtxISbWEodgHTyavSkao89kGJ1gM56BO2tKZStOkF6YBQp ybU9Biy5MAApWFOrxUCsV523h0kjm3cirmSxaFV7rVgdYMZpkbngTwH7MCjoXKLkzdvpGAb4AEdaWEHa dGJ5VDGwdHKhV1GhHEUpOI5gydi3HIC6GGmvLMIgXwI Block(s) 2DUBewLSqTNFphEulDQbyj727DMS0PvVbZLTrdrQlpVnevQ1kRfVdVWESuW7ckfgiUvjtSNBbGUG0NDU sTZJbfaKalL21uc2mrBW4n5DkIU0dS4BlQMS0kGDtZRPdf32psMrntQioXAHSl2UtSAq4HHQiEDFaqr1 = (test code = 9841) Disclaimer j4eoiLDtXKNrxOQoCnJdDZGoILWxh8ehYCZipCQuBcApYpDjDdUpRcfnpJUcHLGmQhImx1rqu120kQSl j9raUIAjYhC2jSLjRTPzqSKeT335SPNeEJbcv8vyn8ZyLLLuaGXcz0R0KPTHsgpaxSe5uHbeL99te7M1 QspaA6abTEKoWKCcB6LlOS2uWQOaUxb9IAF5GYK7BPS (test code fBDZjU5IwNJ6fBNBdtKUuPHz1o7mfsYwvGWEwJLA5d5sbAWfzpmSiVV6zme4uqBs1r1wphxPjJMNpMTI ypAITOOMsX6KujHfwPk4ibQz9sXimRpmvUUN4Lan2KA5ivc81rcd4iCkgOOWrhurmLwW6GUqkPOCrpuh pATg5FVrsHPAhvLD8GKLdaKOvB4JwLLNjLX9xgkw4NP = 9844) P5ICohHEQjNhJ3LTXxsTDmUDPtgItsQOdus574GVG5SdQcLN4hE8Trd7L7uJ9acIRpDWZelWFnFeUgUE Oqtr8tjVOzOAsrl0TdBRS5glS6oZLlqBZpPLByYM20Lxloh4AyZaceXJR8YADmabFqd8Xeu3lrSiHcil JiD2uuG1DaTWLcIZZtIDWsCpGpqmZon2Kvo7JzsRKkx Sj0k6dwDPEqSAPehLsyl5gqQSJ9LVNuW5D3hADsr9jnUFanPEFrdTR2rqV7AHYhdBYnI1CdwL3pFJBaL F8tcls5p9yfQIG3NEvgUONxJbC5gjP9WOZznUSrTDHbkSqpMUyuf165FLN3SfHjCWYmm1GkF3OwmCbaE 13qrYfsW23iWRKfgIpuuF0rvKehcB4qCfRiMuDfPMts iJxqpSGumimdAPfyuoP7CHqhtreiFJNwDDitN5neRfMaHZIldLamTTlbd6XtERSmZBZgLmhpoeI3APYK u85aIFAwa8ZjGODxsE3nhNEjCEjrksHwwSV2WIpafnFqJpRrtzHdKIOgjQ3xFXHjOS1jTBDpqeQkob9a voNhGCWaQPUuA0MbvqzigZcafwQlDWBabx9zpcHaIBD 5YYBJHR4AKTElITFih52zOOWzeWlpvI6ynJRprnNwRFWjb8FonW1gnFHZTHIlM9fjST3bLAcib7YfgEM hcZPufZP0EEWhb8UtNgCsaoZfvKKssLNwG1BmiNxvJ0fsBWOgUPGmanAadZOak1QoAWOxxZU5iRFtEV2 HHxHSe32fKLBjVNIQgxByJWLeeTicrYM8dqB1kX2kWe VJFyNojVDngIJrAcgiPEBmi465yu1ocqG2KCCdFDLtcosnt8XyQMXzXPDrdS87NKOyZTPyrh1xiltosL PclbLcS1Qsgaq6uO8mPJBaIUlsIEQnRMIyHhCsaPXtHtMdCsGzaZmouQlePVxuXuQnDOZbQEqdQ3ivKg FcZnMyMlxwYXJ9 [facility] Interpretation 2022-02-04 12:35:52 Test Item Value Reference Range Interpretation Comments Submitted Clinical k7abpCZiOSKfc8nmKSPaxIGz History (test code = [facility]zEwMzNcZnRuYmpcdWMOhio[facility] [address]) soFyMLzck6IdE6EiZaUdQYhm bnNpXGRlZmxhbmcxMDMzXGZ0 hxIjQEBxZRxmSSMmVIamWl2e sATkwHydSbZrRNLef0poksVL jsvegNv3m2iqMKFvCeL7kTTr ETqmU9okxhQerMJrNKVaRAg6 cI51VQFikC8dzUGkRXrewxHg HxI4LXqyVNTzOvU8IINfrWWq EVQbE0xaVGWtZRsmZYFjMCst pBQnGKA8oJdli4W2jZPeaREi wFscVdApCkBxAiUGl4JiMMx7 vYciR0CsSNNyWhI8fFXbIOAo SJvaJQWqHNYnaeE4eX09CDft utG1uVHai7Hqy24pd472yV2j rHNcNEQ5JRRsTFIrwUBpVIDl NQZ7YOMfbPFlS1ufEHEkQM0a yleeCVbdEKgyXORttMY9ZSAo xYLuK3RlONDkCVbaDSPljsl3 PjBoDk7zeIZqwGsvAWlxu0xv u6iqeTLgYsk5FANzBwCgSnlu DLgzu1Tah9ucXCLiwb6vFOQ9 pBWjgWipj5C7wLDeBNXtyPSf lsHqCTMxLgX2QTpgZA6phi79 BXPyBMX8kz1ykTDkuVkfnyJb bCNfIQteZ0YhWNOjh631PBBi Q5AuDAZzf3V1naVgLbOxEXIk eOZ2xxG1CFBuYGh9tRZlebT4 bjVsaUWuR9wshZ0gQDWxMK3e jqjwt4azTHqtKTkdCHNdzZO4 xwC2REVktYWzZ0RhxD1aNXWn VQmlOVKsyje9BzZoTb7qiPXt eTcyMFxzYmtwYWdlXHBnbmNv bnRccGduZGVjXHBsYWluXHBs YWluXGYwXGZzMjRccWxccGxh cB3nYxApDtFqLVzpGV7sWZWu V1yejHIkLEFaRDUbQ3ltEgVk mN7hsVmuEYketpBrFE5hxJai hqXssSTlAKapph6vTHKdHoCn y2vpKQ7uEIFyQZE3UFhXUJQg NTldXHBsYWluXGYxXGZzMjJc bGFuZzEwMzNcaGljaFxmMVxk FeXvYKDzGTmaY7msLcLiJvLe KedqNJQ8iA== Diagnosis (test code z5mcdFJhLDLuwGR4FRXtEYLo = 34) c6ywg8BiiCJksCBwNNverXJd ctWtjr48aGB0vR99KU2uFHEx DiC9HGHdowP1Dtu1BQHwCLLe aBSyL722f8hrt8uglgSqqWG4 RFGbDWWmF7XhDF4qCZWoyDOl Q71xqQLiNEG1JOMhAIDrpJEh RGTbLTS7EQXbiQKjM5djYXWk ON0shebhUSpfVZycZZCeuPK6 VZIooBTaV7CaFKSuXVxdPOZe uty0GvGdPi4zmYMrfCdyYEbg NVSnQMXkFDjlQOIvZgGzG7Xs AVI3AKJzP1f2GMM6iZqrDXU5 SXAunxSnbsOcOBt4zCHfZL8d MIBxUtDpVIXik5DxFT1uLKJa hCKjHCZ7JFJaul2zRBC4Dzrp zBuatPuwWKGsTWO8o901Dnvm MSZuwHz0XgEasQmtOxTkWHVe CHPXseMxzEsjxRgity5cRIcg dFWhUV5kpTSaqb75ZItgFW78 aWZpZWQgKDAvMSkuXHBhciBT KNLcC63tdCXlkU2gWLriLTPv bGkwXGxpbjBccGFyXGNmMSBC TiAUhTwzeNTupCMjhLmzo4jk biBlbGxpcHNlOlxwYXJcbGk3 TbBurEisEyHrUJUsDJELg7gn RQOgPWLpcGDrxALspaD0jXNf REmyAChftwpnh9UvR9unWVys s692ycKkb9Sita8bjYVbMMAC Y5WVQEeDXdJHQGWMDJSUKURG Vv1KASGJMW2IWSNNP91UQBIC XCYIVK8NHWZHSUOBEvUHYUGm vcFLViWWCF3RLIZNYWNRWwDE GbduPY2iVE8NCtKqW0zOWwrv JGKZTSc6NDqTYMDyshURRTVf J9SevS0tFSTxaBtxbUKbn2Xv FZKna3cfApkqrW5zUBbuL5sl BC13HMnbUKUxfFjni1Zqi8Rq oGAyIfKdQVTkyQ5ilMIqBPLn slFSzZu2jRHbR2WwEZUskZzc V0PoiXZcjuWnhoFeBt6jGKed NCBnjuZwk0m4lBmqTOE7y5di htY7u0Rsrl9afAkpQXYCHUTl H96jzIJvjT2rkKKrnZ== Comment (test code = w8doiLJdULTymFA5LVUfACZh 9835) c9xys7KvnVGgyIKsLTeaaLJu qjKzix13iBQ6pJ80OC4lPWGb CtN4LFHihcM6Wzo3WMWhWQBc pQMwW808y3rze7xuqyVbrZW7 iAmgPEWojdqbQoY7HAhqIQGs kujwOBk5WIbaPOWliSF3YBIi nEEkD2HuUIWbMS7gmzx1BNC0 DBinOOVkPfP9TUPgiTJsGZTi sNfyYAcqo103TEI0RpYpOPJg kyLehGrsyW6cMzZeRCQJUmVH wKKisK7buIyopoJjQuRlNBNz jOzehcQkDSYoa6K1ORIkOMZv dANmSN4aKKOofXSwSU4lW1e2 rXIfU87vu4ZaxKvrARyTKqV6 ZPNzzlEoNX6EOxYjOINxAQPd kxGoCCD3ua1oqJ5uk2SyLIso eCQpw3jpr5BbQ2uevQojREcf w6C6NNnvBzNmlOInpC1iggV7 YSFqIG5exFKtbHX0xUSsrQJu PX1krWSrOXJifUBpVSLkopRP OdAZgSIcgPDmd7SuJG8hBJXz vH8smAIxV2OjvEMgsq8aeTDp niL0yH1pGBrrkOekr4dtF7s8 hGuwOPpcLkLkGP52UV3ivjLg c7ovW4ikdlKzdjIft2XzIROk vlHjvX9it3YhGlrqRS8mEXP5 FaHJYBxges5vlRTpMmPyo3Oo lCZrwRIrDQ5VTONdYE1fIKPo cPpieJdjz1SkctKnLHguXO0s GDRNMXQmEMrykIOcd9her5Ta A4ithFqrQZwbn9S0QWcounGt wMsduJeumZZnbOsyGRJsvz7g bCBzcGluZGxlZCBjZWxscyBp xeEjuS2jomNSLAndf6QmfJ3b dCwyGrA8zALdtPKqy7UfH9Ec f8KdjN4iu4k1cHQviqBobW55 PYRlbuKlcMExOX9qaNVwZIrt aWxlIHRoZSBzcGluZGxlZCBj ZWxsIHNpbiBCOSBhcmUgZXNz AK73rOCddMhvfyOmDSUyftTa IFRoZXJlIGFyZSBhIGZldyBu TNS4ywLbHaVdSFehW12ipvEx sDUzEK3bU4q2MRWrtD4mZDYh BSFbSTEcDWKvpK4dMQYhn7Tz GAJpu25wp3l6gKPjUG2scFXs PKS0rxEqaEEkSLOuES2nAWQg PCKtQs3kHGqqoGK5NZAvt8Be YmVlbiBpbmNsdWRlZCBpbiB0 vQHgfEHgz1XiZJ8pwoXdi7Df LlNwb9hurhA8rIipo93zk4Dw IFxwYXJ9 Synoptic Checklist MELANOMA OF THE SKIN: (test code = 9864) Excision, Re-ExcisionMELANOMA OF THE SKIN: EXCISION, RE-EXCISION - All Runvebyll0em Edition - Protocol posted: 02/07/2021 SPECIMEN Procedure: Excision Procedure: Richton node(s) biopsy Specimen Laterality: Right TUMOR Tumor Site: Skin of trunk: Chest, medial inferior 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) Maximum Tumor (B[place]) Thickness (Millimeters): 1.6 mm Macroscopic Satellite Nodule(s): Not identified Ulceration: Not identified Anatomic (Jarrett) Level: IV (Melanoma invades reticular dermis) Mitotic Rate: 3 mitoses per mm2 Microsatellite(s): Not identified Lymphovascular Invasion: Not identified Neurotropism: Not identified Tumor-Infiltrating Lymphocytes: Present, nonbrisk Tumor Regression: Not identified MARGINS: Margin Status for Invasive Melanoma: All margins negative for invasive melanoma REGIONAL LYMPH NODES: Regional Lymph Node Status: : All regional lymph nodes negative for tumor Total Number of Lymph Nodes Examined: 1 Number of Richton Nodes Examined: 1 PATHOLOGIC STAGE CLASSIFICATION (pTNM, AJCC 8th Edition): : Classification assigned in this report includes information from a prior procedure: [id number] pT Category: pT2a pN Category: pN0 Gross Description z8gkcZMzFXGnyBYPYZacUPcs (test code = xoClSTZxrMGaE6KprzmtJGgl [id number]) RL5lNO8wxFmvmYAzcHNsSV1U XGRlZmYxXHBhcGVydzEyMjQw BEGptVZdbKC9HKLoTQ8bsgps LSirOZipQDDofhN2JYVmbRWo X9OaLUPuBQ6aseikLSU3KEcs vH7moqESZlbjYk1gwRQzuVjj ZjFcZmNoYXJzZXQwXGZuaWwg TVDrZHc2dX0VGmhaM45fq5C6 Mhi7RIUnHZZzJ0MeGW0xQFZt sUNkL44IIvmuKXE9DCGMMgoh FWPvVJ1Ht5ozFVBgnKZoNBL0 ECyvvVGgQXGuNLVeBOz7JIJa COhtsULyFN5rxIxyGdceoWoa k6CbqNVxHObaTHEbTUJjDIge YUVkCC3PPcBhGAIeFeD0AkZb XGm3OGm4BQ2AFpDpLFAuUXSp RoI4OLGdYMr3ALkhFS4CVCDk NzAyNTQzODAgNTUyNTAgXFx0 IDIgXFxmIEFyaWFsIFxcZnMg MTAgXFxmYiBcXGZsIFxcbmN9 XHBsYWluXGJcZnMyMCBBOlxw GIRrEJpejHateN2ySHJeP00x z8TLx1VjFO9ZSKq9kdSpqsyb wO5xRXUhrfShETfvrEYyW2se NvnqAyNqRuUvLGRXEX38gK5d lLZjkW7uzASdx3RaFQAnhUun bGFyeSwgcmlnaHQgYXhpbGxh jxwom7SscZeyLBdloLffxPpr bq1iUKQnFDDeGQcntSJwxxTd Jfi4QNgmAKvcgbd3kz1vPer6 YFKmtQLoeNOeBA87OODpEBBn EZGyKQqhq9DpyPclqbeoRiby JXMlYsMkdfJ3KQFmMPN3IPSa YWMKQXHdSCN7XWMmRmL4VFRn EZUnoNGkwO4yiANht2OtIdre WYSgFUfjvBJmIIZET2WOY14g N60TDXawOGNdqBymRDXxBHe5 SgBoCEL8KyVeOUngWZPbOCZn z1NcEtcxUKl3oFXnFB8bRCJg x6NsfOzwcjCnNeYpLGPmg7Ll O8P2DFQaYPcrg7npXMBxSYry z3AaAUwVIPDFNN5LNM1pwQX5 GGlWF2SZK3pSxAGcDOB8vKD0 GYTLStstuUQ8cEO6yL99TAFc XRWrpCUhJDrvV250A0X3BRHa HWzxv9ecATOxGTqql3MeGOwX GTVEKY8HVU8ciZG9ACnRZ4QS DBgkFMJdIywtoXTTLIR8DAdd oEtdfOn2f8iysNLsi6m9MRta TBI0pIgawDObceggtBOxhXcz ocAfLB9FMPZecGGWXZL5EO2j SGp7ULghEXBxE6HmP7NrpnUh yVXxKALrehBir6mwAPT3ZTWr jEVajMNjZmYsRtxnDEV0BEKn AMtcPN6Hg4lsNALbfJXhZYH0 IFxcaWQgNTEwMDIgXFxkYiAg Y3TSPXAjIDUqNZKbRBOsVTm4 HOicR4PVCDHgWAP0YLScSMIn TmF0HSs0OSCGGu7jHRK9TSZ7 EgksCtI3UUZ2XZLvVCMvWvXq XGYgQXJpYWwgXFxmcyAxMCBc CVHkTEifCawuSLlhS09geCyc sB2lOddrjtUeSNI6KUByguDT ClxwbGFpblxlcGljTmVzdERv YzEgDQpcbHRycGFyXGxpbjBc cmluMCANClxsdHJjaFxiXGNm BHtvciEfQBAlCUB5GQXadVcy sAmda7srCPHlR1q1YGVgSQC2 ET5iiYIbz53dGPNjwP4aoSFg xLl3F6rcy9RuUWMoh4FfCUru yvrys5MlgAWmHIYnP0u7YQvt gYEbANudRFaqRAVqII8lbtIs FJVkOzRtg2FmCCtbCjZtTxuc PITtRUH6QjUpkUKpFsGkcSFt SxddZ22kFGwhdKQpNWKrJzZ4 GG8jz6snwmJ3hTZ9NLxjRH9e qFUtyZIfCTvftDzzXRZbxO7n aVNqeGz1P8xnVSWrw9VuOKQg k4EdDU8iOKQozP3iYpMjsLu5 E0lmLYTsuppraANzxPF8MKXw zB3fSA3zJOFwYLJxjnA4qRAm c3MtNnBkPEXjGpK8bOBhr0gy ymAzmlBmXCMyVGD4ARCrZWAm tAX3nMn9POiiBdxpzHssK5ij Q6QwSGQxqAQscvwbsLReKbmv yQQ2CQQzxJMxw0Jdcg67ggXn KBAbiFZnXYGtTlB6WZOxKNHo gAGjnwDlYI6yUVCixbfnhIDl FC6kySFpuR0jUB0ra6C1nhKk UCP9AAAduVPkXQvpMpDiFSll YXPtfHkbUIZaGWTmg94rlDLq cmVhIGNvbWVzIHRvIHdpdGhp uaAnKnCqZ28mPeZstSC6bYQi f0KjJYZxp7WsfFBvZ7ajFYWo MaSjZ92pJxRloAU7yNCyqNFk qGZeGDByhbTqTR7ngfkfxwvp Pr9hRLAnCSJdb13tuLdyFHdy YpCbeN4tIE8svilgvlnwZR1h GUJmAQNtzGUkbb9mKIZyDATa zFrtcLYrUWDdcnKzVV8mqpey je5xCGXkGVLbhMQpwF9easLf jzEnracmILYmglZre8ZclFwc bmVkLiBcbGluZSBcbGluZSBJ XtrrO45RDMqsMzs1TS7iDRJ1 EOgztSTqRZj1SL7zKV8jEK1z aWdodCBsYXRlcmFsXGxpbmUg ZADenxXTUai1UOTcK9WIHOvO RkXOP7NCNqHNNRl3SPWeKVYp Anx3o6KyWSHjt7CdcAqoKIDs dqxwb5jfCLY9mBflAdIklErb CCNuWMp8SrtiAxOjxF4pCROu nApyjP2tDUGsWFPveQP1ACWo CMB8QpIlJWwwLYTdMHAfNN6t uhygtpihxJ3xGHDcIXGdcIV5 ZUD3ZEB2MwEpEDexIPYYYQFz WXC7LuLmNJtvTVLdupCivkTu kDScfQ5iXQakKGWsVZEeoS5g s6ZkXK4bCxSvffRvo4RqcSd7 aCPyETMhy19ux1BzLZQcx3Gs kJ1daD4fQLYuz0FwtT7rh5If ZXIuICBccHJvdGVjdHtcZmll iKT9DCmrMdejsT5gdQBNESEP SwzZLgkmjjGcWY3DOB9UUdEY WP71LtEmPHJ0WJtFU8GOkWG4 Zxo7BEy7gXqeWpmjcpPitUGu JbANtN3PEayfIdfwkPC2YJpr WhzxxT7jvFOKCQFWMgaEIklp vaDtMS0GTG2JJH3HfEKuQGN5 rKO2NZQLIjlosMN1cWI4vH07 ORRjDGPylUOzSFckN039XAMw AOoqPSm5uvNcIMBnXdDeXQdo KQIwD09nd5VCk9AfJYUxc1oy aBbei5DjqXVzAKttBXRjkHWu TKprvC4kSlZdc1qvdGd2VVis rgK4BRDnjh5qmFkxwN0kDMtl w0hmPCI0JWYffGUesMIlEFur pQrluF7dJpJaHuy1FNcdTRZp J2IqP8IzxjX7VQRqSJtwQSNe MTYgDQp9 Biomarker Block(s) v0temNTsTHWiwNS5WDBbUGOt (test code = 9841) k5jsh9JmoIBabIEhSWtdqLLt dhYjsl39gLV7pV09AQ8vQWVv GrI5YGHtqnG8Uvm8HMKcXCYg dYSjR740o5eha6luruOrfBW0 yYshITXawktiZuI4TCgzHZQe rayoZIi4ZIupPCRevYT5RAPe aYAdK8ZhMPGcQX3niwj8WEA0 JGhbUGTrHmU5MRZnaUKaNSUc xVecMIrje328YIS3BsQzCGJr oaCyuUpdyY4uOfUxGORMgS0h zoaySrbtZOZlMPK2LPWvWPLo omPxoG59fp9fuAB8k4ZhAX1m C6UtBLQ5bCSxLJDhi55bvGap tLsvBPQWs4QwAZm3JYJgGDDy cn0= Disclaimer (test code c0mmoBElPVEftFBwKePoTAJh = 9844) OOCaz1juQMUsrHElWxBzShJx JgOfWeunlOGbKUDxQeUbg2av k691vGCxn6gwOKHmSmS2tCWj EGChwBIdU782JJFcIZqjh0qk u6UgOTVurIGcx5K2ADPWheaf eGy3mOirS06oz1H0VezeC8ef UPRcKARbI9AoGJ3rPAJsSti8 YAR6WBN8ZCJsYTLvY6TyHT8o AYGkzDEuCYf1g0nljZfaXZYi FCT6a2alKEthlpBjEW9jrl0v rTb2d4evgyUhRBGoFVNtjBMB FKQcC4HmpKtuMt7wdUz6rFis ZefqYEB1Eeu9TT0ozu31ikj6 uObrBTCycnlhCrO6LCrvWDSv hgbvIGo7ZJoiMHRguJQ4UBMq jGRyD1YpITArAK2yxnc2LNY7 JVzwZNCkFnF4CECraVMqEGTw fRtlDDkxo722YWF3RfBrTP0p Z5Nzo2W7vZ4fzFRhBLAecJWf OuNxMBMweb2xbQArKGary5Up BRF0bgT6dSGqwLIwGKOlRZ37 Snfmd6SxXvdyBAE2GSTnyzQp n8Jol1pjNyTvwhDrK5rtZ5Qb ITJaMXUwQIDeMlKfniIoy3Dd i7SykUUkxDt0o3nrOJEvAORz sKmjt4fhTHW4ZNSnI0C8aRBg m6paYOgqLXTbmHW6ytY2UTDa jIVxR5GneR6qJJVuWW1bvyv2 m6ckRBN0VScfRRMyIdY4fmJ7 DQIkqCRqMVLvlIavHYxxr838 HFX2HmQfWRNmf3ZfA5CpcMsh W27eaExnD75zUAEmpCiboD8s vVldgJ8dCfLnFjCcFBssqCne jMKjqgpvPOtwzxP4OUmgqltn ETJnZXlnU2ruGgZxPPRpmVya GWgxd9WwSOZeRGBvVabqiuW5 HOUDi99mSAYja0QcRDUerE3o iGOcLIxxvxXukMD6QVdnlvHu LoJsucYuFJPvyR5yEMToDY1y VNOlcxEnqd6hnvXbJZXzFJFg J4InohidbNqvuoOrKQCgfk7x hsUvHHU9FYXAUB4JZHLdIHAr v37xDNLceQpszW5jeDFftkSf NCHeg1EbnO2paDUHJYRlO4va CT5hCKglj6YrhQCbhLFpcGM2 ILRzq8AmOzBkoeKgpVIcvTZh L7IjhVwbC1xxXGMiEUFvoxOh pUFbz3RlHZHwvNI1cGIyER6S ZpVUu92uWEBnEWVLbjGpNNQm eAmyhNT2spM1xU8zGfHBFkJb rWSxqMYkIajwOTDcj004py5c klC5BSPxWCXfmujou6JeBTSy AYXciV70UNFcTZBszo2ppmjz mAEyzoTpD8Cqmjb2lT9uJWCz YWluXGYxXGZzMjJcbGFuZzEw MzNcaGljaFxmMVxkYmNoXGYx SHutO2qyCeNtPmBlTgcnNYM8 [facility] Interpret[facility] 2022-02-04 12:35:52 Test Item Value Reference Range Interpretation Comments Submitted Clinical e9hlvFJaNQVsd3hrTWWtsVOl History (test code = ZzEwMzNcZnRuYmpcdWMxIHtc 63888) ddWyILvmh6QgZ3FsUyRkNFcc bnNpXGRlZmxhbmcxMDMzXGZ0 xbKmCRNmRZetCKKcERnbPv3e uLHpqOvqCfCnFMXtb8jujwVM zzrsoEk4l7qqFDOtGyA3eVAs AEfaD5onnqUhsVLoEGKrNAw2 qV39SOKpoB6fwONqFAxvdmPe HhZ6SWhpRSTeEwW4PPQcjTIw EGGgX3qrHYNcKDmeXVSnPMgq oDXuLMQ4qOolm0D6gTYgsLGr fUvkXfNlInVcUgHUz2KcZZo1 yWxiA8KeEVOcMrW1iJXdDOTx ISsbSSMwLDQnuxE2xU66VNay rmY6mUJak1Wnf93hd699gP5p nFYjNZW4MNQeEKWyzYTaPZRp BVL1IOGdaPArM3usNTNoHV7n xhxvWXhjKBacLBDpnNN8ZZUt xFAcY2PiXCXaTYewBJCbgot1 QqZhMy6bhXIyiTxnJAxbo3sq j9lrvZAkGqp8PPFyYnKoLbqt YTqkd9Qzi7ucJXPqik7mFWD7 uGBrfHgtr5F8tHAlWCLrlYIa jyKaSCTmQeK5HUrhIP0gsz16 USYdKTI3ev7yhFCmtQilmdIf dGAjFAvwC9LuKADvo468MTRq U9ZcJDBlg6X7hlLuKoQiYZGv yFE9qcB7XWWnNHy8bJDwmzK6 pdQtrGCxO3guoZ1rJUOlHB1u jtnri4wkIAllOYnpZIPtkMP4 tiH2ZTVkyHApH5MldW3nRCFp FLcuCOWtunx8QrKrMy1hwZIj eTcyMFxzYmtwYWdlXHBnbmNv bnRccGduZGVjXHBsYWluXHBs YWluXGYwXGZzMjRccWxccGxh gX4qYfGhGdGaAJefMZ3dNNCh V3mkhYRuVUQrICKnG4tpQwHy kD5dsZiyJBaujeJmLV0npIde uhKktVSiKOyrae0eRACwYaLc n2fhXC4xIQGbEBM1IElINMIc NTldXHBsYWluXGYxXGZzMjJc bGFuZzEwMzNcaGljaFxmMVxk ExQcXWGgDVjrU7ipPpAtHoMv GuhhIZH3rU== Diagnosis (test code x2fusGTtEZWroFP5THNoOVEq = 34) s0cne2MieHBdmFVhNPudiACt aeMvzb27jAQ9jV56IX0kGLXv OpS6IQVphlQ2Sbm3MMKbRYBk yVTlN174e2xdz3eulnMedIX2 EGRsVFXiZ7YrIG9hTVTdcSKy X18myFKmHCO1UHQqCLRquJHi EKCoLQU8FFNfaLAnB0jmJZMe YE7jfubuNSraXIgkNXFulTK7 ZALltGZcN4FbOZXaAUldWMCv yiw1OjLlZz6iiFOvhFvkGEhe EEEhVKUdEOouNYHhQrUwZ4Hu GFN1HBMnA2f8TTI0lFnqPAI5 WMEajqLswhQlWSe3oDOqZV1o VQIzPeXkIRBlh4DrOQ3cEDNm aLIcRID3SJSdkb7wAAS2Dnkl hUtgdDvgORLfMVZ0q823Nypg VYEsfEu2PvEzkXeiFiIiFSEc QKQIvlVtnTkqkYouxk6qRNlc bQDhSN8twUEgwh10FMktLH07 aWZpZWQgKDAvMSkuXHBhciBT WBBzT08fjONqzI6uZDvaTCTr bGkwXGxpbjBccGFyXGNmMSBC HgOIxLegkIImyWVddQokg1mf biBlbGxpcHNlOlxwYXJcbGk3 SoRyuXtyNvRiIVWcIYSDv5sm IBKjOLPblNNucYZzoiY9bUFj RSelJLlacnfga0BgE7cwNYeg o987esDpx1Nhck3klOLgRDUJ S3IXQNlTAnIQXFGKSLEIDSYD Iv4MVDGMOF6SBZFEU41MENJZ LFMCEZ6HEYPAFAHSJdLBMGYt pwXGZhKIMR9YZZCDFLXSHaXF QwqjNU3tLT5EZaJvK5kTJfko OTCNGVo5XPePTUZudfAZBGWq K8IxdB2hSGNjiPrmjDCyb2Et CQSvl1blVbmptQ6lVYocU0zl BW81RBjcWODeuGcgp3Yuk7Wz jMIzIxIwXCKyeE4waFMtQCTh ubNZgMz1xDVoT6BeDJGibQxt E0TelTRtubDrxqNaTz8cXPsg OVEkvyThu7r5lHkhUUP5w9pa uqD9l6Xixo5ouFteYPSBRGDu N89kqUUhaU4aqHErjD== Comment (test code = b4coxBCvZLZbsJF0KZThXPMa 9835) y2yhm5FpgDElrBBsNHchjFUr mqOcpx04nBG2hT98TO8fFJOx DtR0YEFajuZ4Amf2YABqVVSa tSSkC849f6ttt0bipjUvdRK5 jWtyJETxmlhgQzG3VBytVDUq lxikJZh0CDiaIYYcxHV8FXOk nZRfV4ZhCSVqIU5jurf9JOK3 PYrrOLNgWjN4AHEcyESkIRDn uFizIYwtz253KLU1DiBwANHr nlUtnGsiwO5eExHaXIDTLkGM sLBzpU2ouQmlruOeXyMuMREd lOawbfAxLBVwx4N6AMJnZUGc mGBtMQ0vZEFyzABfAQ1fE2h0 eXTsX86wz4JipXpeOAkQRyF2 QKXkonNpTW5VHiWxDYOyZGJe eiJkIKJ6ox2guD6oa9EnRFnk oAAld4kry6IvN7ywaEhjLExr c2T1KWpyHxPzuOTqlT9eghP1 VBLfHL4xfFZzvPL9xHNhqNMb EA7gjZIvFZMkmOJzXUHvjjQF RyUYhSYuaICsl3HpBH5uVLAx qW1gpZRmT8MlnITplw3kmMDx noH9iN3jHWplrNwbx6lwU6z1 rGgcBOozElGbIA16AV6kikQh r0omD4qfkxDdlfMjj1UhHHCe jbMeyW7zw5BdHicrZE4pYYM1 XxWPNRsqtf1wxFFtPbCxy8Dp oRDxaDMcAV8YBLDpRU8bEIDf uKyxzZxlp0SymsDqYNmxXD5x PIBKLAVrRIhzyBSrz1brj2Hu T5ewyGekHTdtr2C1ZTwhqkLy sWwhaQvbwIIwaIocGRNdfl6r bCBzcGluZGxlZCBjZWxscyBp iwGdyM9vahOOIMplh3QjeM3e mIgrCjD6rIYmfVMbe6VjF4Yo j2TfdA8wr7c7uCTqpqVgmS41 MVTsliNdkADiTY0rvIOuMUon aWxlIHRoZSBzcGluZGxlZCBj ZWxsIHNpbiBCOSBhcmUgZXNz WP07hIZarWomepNiKCPdleYw IFRoZXJlIGFyZSBhIGZldyBu QHZ5geYbMeAhZZdtJ59ysxYr mCWsKB7kS7f4WCDzgT0iDCDy NSSkTTQwDQXbfA5rHEOns1Sx FTCab46zy1f3aSJtLZ2hpOJz UVO1unCdhNVqQKZfQO2hXHYx FZUwAw2hHKnudYH1KRHvv9Dh YmVlbiBpbmNsdWRlZCBpbiB0 bJUckDDio4DtMM5lruTqm6Yv UuVvd5cumdS1nUpsa40ep6Mj IFxwYXJ9 Synoptic Checklist MELANOMA OF THE SKIN: (test code = 9864) Excision, Re-ExcisionMELANOMA OF THE SKIN: EXCISION, RE-EXCISION - All [id number] Edition - Protocol posted: 02/07/2021 SPECIMEN Procedure: Excision Procedure: Richton node(s) biopsy Specimen Laterality: Right TUMOR Tumor Site: Skin of trunk: Chest, medial inferior 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) Maximum Tumor ([place]) Thickness (Millimeters): 1.6 mm Macroscopic Satellite Nodule(s): Not identified Ulceration: Not identified Anatomic (Jarrett) Level: IV (Melanoma invades reticular dermis) Mitotic Rate: 3 mitoses per mm2 Microsatellite(s): Not identified Lymphovascular Invasion: Not identified Neurotropism: Not identified Tumor-Infiltrating Lymphocytes: Present, nonbrisk Tumor Regression: Not identified MARGINS: Margin Status for Invasive Melanoma: All margins negative for invasive melanoma REGIONAL LYMPH NODES: Regional Lymph Node Status: : All regional lymph nodes negative for tumor Total Number of Lymph Nodes Examined: 1 Number of Richton Nodes Examined: 1 PATHOLOGIC STAGE CLASSIFICATION (pTNM, AJCC 8th Edition): : Classification assigned in this report includes information from a prior procedure: [id number] pT Category: pT2a pN Category: pN0 Gross Description k4ppqQLxHQYjfQDBTQlmFSsx (test code = gmBoPCKnhFTkQ3ZrehxiVVvg [id number]) KL5wGH7opGlofVUlfSXyIS2B XGRlZmYxXHBhcGVydzEyMjQw LOArkRTibSH0KACzZU6obrrz LIvsDKnmTDRnuvE5XZHisCEu L9CkWKGaZW5rlqzjZYI8QIrv rS5wshCNZvstXw0cjPOexAbe ZjFcZmNoYXJzZXQwXGZuaWwg THVxSWp8aB5ULtylR13ox8B6 Mrx5QWIzEHIjF0XjGU0zZAUn nYZsF97OPnawQST1ABCYVfcx CIDwJB9Ah5wtPZGdyKFlWQI1 MEohzEXiPMUqKISfFEj8WTFu QQcpkWDsSH7moNtrYjoqsKrc f2FblAReZZooFCKxHCHiKOwv MPQxVA6TYjZfJYJrOgX1RtBh ANl4BYc2AM3LFtEpOHHzMNKy YaE0WMEyOYh1VEwvJU0MVNJd NzAyNTQzODAgNTUyNTAgXFx0 IDIgXFxmIEFyaWFsIFxcZnMg MTAgXFxmYiBcXGZsIFxcbmN9 XHBsYWluXGJcZnMyMCBBOlxw TIUpHGmpiCpofK7fHKRmQ39u i8JDu3BgSX0RNAe7xzUwjnpo zN7dTJYnfsMzOYtawCAuE0uy YmpbIuHfYoCfWNQXOY47jT8o sUFmnD3gjTTng5IkIHHnxLot bGFyeSwgcmlnaHQgYXhpbGxh vqtan3LgcJahZXcwzDdgaRii ce8fAXYeDTOzIVixvUNkweOk Vfx7GPjnJTqulgh2gh6tEqh7 BVJzbLSvoSJwLH00KZIxQTUg CWRlUMsol0PctVuopkwnMdia PXAiToGydzY1YPKiFPO3TMCk BDWLQKReNDW9ZXBcDqM8PERd OXKylKWkcO5pgAHdl6BjYfls DSVmWAmmxNSrVCBEP1XLI89s R58ALFdaGJDolVptRZJkLUa6 NqDfZBL5TeWkWYhkDHOtCRXh e1UnHjuhIMj4uGYnWN8cDMAn f9EohHzbryRmGzZjYVVdc3Vg O6L5GQHxGOtrg7ixKNNpBAix k4NjXGnTMITNTK3BHC9wbHK4 GGkLV1ARL3mWxSTiVGT0wCO4 OPDPRovipHZ8tGB3rZ03OLWp ANQtyPSmSShlF340J1H6ZUYl BRrpb4ydGSXkIYlin5ZvXBrH XYOHSV4QCY7nqBJ3NQgTX4DU NEaiIZOrKnhnrOZZHOR8HPqh jJtvmTx8z9pceXAie2a3YRyg UNC8wJllmSWvwymtgJTqjHot voHnAT6ANGVsxGJTOBE3KK3y ZGc2EEijPCZrH7UuM9DgltLl uDEiDJSmweGri3syLCG9PTXp uSXlzLNkAiZtOsvbKEN2BRHk HGolHU9Fl1znJWNtuXSwQXN0 IFxcaWQgNTEwMDIgXFxkYiAg G4FDGFObNBEvIFIgUDJlRFl9 PEtbU4RUNOIvVAX3LDUbAKQq FwR8QSt7LJHRSv7eSYD7ZHR3 ZkuvEhS5ECN6IUMjSKFmRdZq XGYgQXJpYWwgXFxmcyAxMCBc AUGiTGocLcuiAOdqC58ftDre zR1fAuzlzhUnIOK3AUHdbsZC ClxwbGFpblxlcGljTmVzdERv YzEgDQpcbHRycGFyXGxpbjBc cmluMCANClxsdHJjaFxiXGNm QQzxwzNqBCYaNSM1BBMlvUhv bRmme7jxVDJiM2y4IXUcCQG9 ZE6fwJMoa89yJBNdfN7rqVCj nKz3F3qkd1DzISEty9FyJFzz leaas5SpjLZtEZFxY5v6IFrw vMLeXIryTPjpRXRvHR5gtjPw KNFnLuDfz4QdSSbcCiIuDpow FAVlDLM7QvXroPUkGjXopNEu RrcvJ40gMYstwAWdTRPoFjV3 GZ0me9vxlnR7kMM7NSwrIW2g iMMnoPQdUQvukFyzBJYztX8z kWUjwKs1Y2faNPCeg5XwWHYy l4ObAK7jHGVsiA8tJuDufAa8 R9djKMWzsvixsYCojQP0NNBi qQ7oVY0iXMDuTEJwxgN0vIEz o2IfRyBbJKOjEhM1tQFtc8cj rgOybqIkLLQgMYT8YVHmOZWg cEO7qZi3TLqcXjlqvGesW5aj A4BxKPGhoNPtqhrcnZLiBrkv wWQ5KILqiEWnf1Fjef10osVo XMRrkPQpPHNoUeV0FSNnQYJy aNLdhuJtBY3eCHThyuvslLBh KM1vmJNkzF1zXI2es2I8tkPa GQM3HPIsrLYtEIroBnBsDYpa SUYlzSnpEHQmRSUmq79rvBYb cmVhIGNvbWVzIHRvIHdpdGhp tfGoKmVsM70mTmDtuIO7uKBf z8YjFVJwt9LbdTNpS9dpZBKp XuCpA72gBqNskWS2jDOhvUWd fVBhGWHwpaQiIG6afsnzmbne Mn7zUCGdVFNzx56kwIyjLGbn MaUkjG9qYD2mtfzqsppyEM1f RHZlONQgbJPtdh4hUNIbQTLm kQdbxFJgJHSxgtRdWG6sghaz uu7zGVRyMMJkwBMtpS7mkuAh ihFgntkeJXDebsTgj1SypZre bmVkLiBcbGluZSBcbGluZSBJ CaskC83HIJkhUkz4XA1kVZM5 REucbKYjFWr8WX9kKQ1wWC8g aWdodCBsYXRlcmFsXGxpbmUg XVGcbbGMNev1MWQgU6JTMRoU UcLKC6VOMiYLFSg9YTHyDZMv Wrl3t0LzEZSrt2LrcFoxPMFo rxpsa8flQSR0xNrpUdZxnMpz YJNhDOn0JjwnQwPydH9rEZCn lCsgfS9qAXKkVKVxnTY6APGh DNN9DvPgLXzfJXGjTRGvTJ9c hdsueatflD9jPSDkVEVfyAO9 ASL6GOX9BeRlQCchGDEVCRUa NOG9FkAkADhxAFGenlRlpjHs kXFooZ9xBGgvARNsNTCxyQ6r q4ZzFM3kIpQqrxKcr7MuiOf6 qLWtYXAuz38tw1AlYECax8Ta eJ6ppB9lOXQgu7RvrW5gx4It ZXIuICBccHJvdGVjdHtcZmll tJG9FGfiEslgrB8odZWCGHAX OaoEWtyqlbXsBN5QWB8RUbOH KP79PdFrNQU0GJiXE1PTxWJ1 Abr2KCm1yQziPhzuorVbcPAa HeAWyD1XVapkJlgxnXE5YFnd WtzrbP1fbNJGSLDYTnaFArzx wpZgSD0MUJ4DLV4ZfDKzVZL1 mVQ9BXKLDvycuRO3kQD6vL84 JRGfFJTmnOVkSFbkE747ZQTs EQckHMl7yfZmEPUyGmMnOGuy SOGjY60wy0PGb3CzQTOhj7ot pJbmc8PquAOoDExlNLHuqBSr UFelqQ5nTlJif0agyWe7AJku ezR3HMRkef0fzHzxqJ6eWUtu o7ksEOS2OMExxMDpjIQtUZon xDapuT9kIbDyEkc9XGluUPJt J9JgK1ZqptA2CUUkUOmbMXXx MTYgDQp9 Biomarker Block(s) q4ezdBThHHGjrKH5TBIgSJYk (test code = 9841) j7ctx1FhtEVneDDpENpuzGRq edGpis85aZS5bB20NE6vGODi JaT7OLKxlkT2Yrf5HVGsOZGp hMKbH554l1rvl8arqcAxgBN7 hHnnGMFufjzpRyF2YPjoZKJi diboWJv9RLhoNXKcqQN0ANUc nJXmY1VwJXKdXH6dmhn7KAY4 AOtcRXMwDmN5CBTukNGhAERp mPwhDVeeg123LGM3PtBzKUZl kiQjeTnhjE0oPdXyOOUYqK9k dhgjLsicEUNuTRR4ZZPlKCPx frTbmN94gc7ndOQ4o7HoDH9r U8YvICO5qUYsSSGfj94mmQgq dBsjLEYPo8XfXFy1CLFrHSSr cn0= Disclaimer (test code u8cjxRZcADNkkPAhRmLoYSFa = 9844) ITNhh8khKZCtcJVpHvLwAhRe XqGlWasosCCgSMZuRsEyq1ou c052hBLxo0cnIWEdEnW6jMCe QPYrbXMdO127GVVpCKakr2pm g6PuPYHorZMkb7D2JDXQdiof wGc7pXzzU81sm8J8GqclQ5iw ECOoHZHtW8QxMD4dMHWiXby0 YPZ6PQW3FGBsMGJdK5EhLK1g ESLhcWFxXCk2u7lpfXdlXWBq KJB2h9rpPHnrqdFlMM7fbz3q hKa1s9aljkKqTYBmPXRvaBUV ASUlK1CltIopSa1bzGw3xUbn CtqgUJB7Rgy4WB5vjv85tlf8 wNghLNVvxwsiNzY5EUryLPBa czhhMFe6ZDmnSVVxcIU2LYAp hMQkA3QjVXMgLV1vesk3WGR5 MAvkXVHlOtZ3TDOzbXAwNVXx oZroKXffn363INE5UvEeLG3m M9Jzz2T5jY9khVAnWJCpmMAq PzRzIWVbin5woGIqQQkws6Ys LDQ1ubT0gRKhzUUzSMOpTJ47 Hfyui7NrCusiXKI6DPOrcgOl v3Acf2ibBrFnejXzP9fxT7Bt BNOpJZLkCGPzAeSpgwGau0Dl o6JpyVGpgXg9s0spICGqIPQg oCyuu7qtUFT9IVItB5Y2kUVj k7zaRPbdMGIidCD0rmH8JINr cZOuH6XfrZ1jAIDnPC1wpcu4 q5bvTNH6NCfrQHCwBlO0dwE9 BPMvnGOxHSRazKcjDLoph914 OQC1SwBlQQBzu1IiV6JzaUdd A51mdWgcD70yZKHmuBxpsM2r gVxctN3uDgPwUrTjKUqexNci pXGeeaogNVogerX7GUwykumc KWZcPOkjM1xkJeMaAIGiaQau BUhcd5EsNQPbGTLzRfacirP2 JKUYl83zSYYsr4IwPJSycK9z cRQzTCgssrCcdBZ1MMnfnfMu KxHkejMnOUKhwF8wTUEhIB6s TCVjyfZfep4xocDbCETtNICe A9CrozjqkYnojkIwOJAevv7s tsUaTLB9VHJNER1LKRGkSCTx y67tFAKnmJtskR8imLXfjaIc WVZmh6WgeS4nnURNCJVyA8qt CQ9eTYtft1IacIXhmFBnsVP8 FLWof1GrAdFrpuBhtYThtDWs X8BjtUjkO7vrSENpTOGzdoLg tBVqm9LvKLDacRJ3yBRoMO1I VzRJl88bSDInNUFGvlHlSMUp ePurlRK6xjJ8jQ0qCcQKZvQp oQXdnHIbMivkIJVff577cz4e fsT0ZPQsIWMybezdu5ZsPLZa AUBgoQ80UVKeAJOqdg6shwhm tKEanbWmF5Gvupu2mC1xKTVq YWluXGYxXGZzMjJcbGFuZzEw MzNcaGljaFxmMVxkYmNoXGYx PTjyY5wmWvZpVnGqIykiJRE2 [facility]ation 2022-02-04 12:35:52 Test Item Value Reference Range Interpretation Comments Submitted Clinical m7bbpUNmZPUhf0jyVEBvaXEk History (test code = ZzEwMzNcZnRuYmpcdWMxIc 11547) cfTfYNpvs8YfA6LrKcFsPCkc bnNpXGRlZmxhbmcxMDMzXGZ0 uzIyBWLbSKduEXUmCLmsFx2a vEMocWqsRfXmQUAze4vxxoFN guyzhCb5u3deSTHaGdK2pQYy DXxjT4wevbSybRWiRDPiCGq1 pL53UXTucD2muDVzFZijndYr FpA8HQudAGGiOjX8SEIoxJOz MNIiJ4uxXWJiFMdaYMHoNCpb kIIiYZG2cTmrp9C1jJEvvCRu nCpsXpLgSzQzVaFMg6AkOFc8 eTbiF7VjPTAoMyF0iZWdDMJq GKpzKWAkRKQaddB4wD88OWwz zxT9tGWgd0Ynm94ua593fX9f wUAxAWD2TWXgSRMorKUjVGHw NWQ0EOFljVMeQ0deTMGmQI4o ggjvTVmbQBlvNUYmuEX3BBVg pIDmJ5RwRKDcHVfsLDYaayb0 QhPkNx8ocFPssJdnIUnad8cy o1mwrOXtAvv8IDVqQxKaPbjn VUfiq1Vgd8adCNXytw3kBHK3 oQXgkTsfn3N5rOBtZQAyoIRz yoTnKQPcEmA1TWdfIL5pbg16 WIYbYJJ9ct6gwYHdtPqfzbEa jPWmPQouX7WiLRBpy961DHCp N9SiTFLmq2P0gmLlJsEtMTFa nPM0gbI0EVVzGYx2fRDvuoG5 akIpsTXjV6dpiF3bBYKmCG2a ukggt9vxAAwqMGkqVAZjcPI8 osT5FCSoyBEmI6KarH7hEEZy JCnfHLJkpgt9UpGrTd1qwTOk eTcyMFxzYmtwYWdlXHBnbmNv bnRccGduZGVjXHBsYWluXHBs YWluXGYwXGZzMjRccWxccGxh hQ7rOhUbCbHpXUlsLT1bZNGq D0sbyGMlGVBsPGIgI4nxOnNv bF6ntAlhENuutaOnSO9ybMpb zqPbsETjCYlfij3jGZTvVaTl e6kzPZ3cHVDvNBR7FLlMARZf NTldXHBsYWluXGYxXGZzMjJc bGFuZzEwMzNcaGljaFxmMVxk AgJxCWBkGUfnJ3brPmJqSkUe YqluXWC4eX== Diagnosis (test code l7wqeQRiOXKsqSP8SQJpREAv = 34) o1jxz3IajWGlsAFjEVmpnJVg vxLnfw28sNG0eT26JT2zBINx YdW8ORNpayP8Qww2HMTfBWIw tXWlG481b3ybf1fxkgDjeTN2 GZXvPPSnF0RnZH5kPBHbsMJf E61iqPJmMKH3GDFcIXDoqFJs QIIxWUM5LCIjvXSpW7nfPWCn CS4hpbvwUOphMBcrHLZtpWX9 DXAxrLOgK7ZtPJQkNJupDTNs pgh9XzTgPs5mnANfpXtfSSlr IAOqIYExUFmdGQRuQnPeZ4Iy FTH2GCQfS3k6EAN4wYwiEEX9 QWDggnOcxeWlTGw3nJOdTG6a MEEuMaSgRTNym3HiKH2gKCLv rHMmCRB8HMKcaj2jOKI5Nyni dIbvlFzhMVGoLBB7y359Hbjf JDSdoZn5PgMtsFxuVoLdRKZh OBRGugXlwBzyzIectj3vFZdv sPVqFB7qfYSnjp67HTdjJC78 aWZpZWQgKDAvMSkuXHBhciBT YCDmC11fhWXvpW8oUQgnVBRn bGkwXGxpbjBccGFyXGNmMSBC YtCVoWpcgNKmmTSpuTyev3bm biBlbGxpcHNlOlxwYXJcbGk3 YiJuoIpwEeCmSRDcUCKIb9gw QEThDBTfuSHryTIthfK8yHNy UUnmIOikqcwll7NjO4wnIRza m304jcQzg3Kgsc8lsXAvPZVJ P1ARXPuOJhYTOEXCDKPKMSOL Qo1EQKLXOW4AYYNPJ74NNWMB ZYHYRJ5AJRWMAHHFMvSFQDXx ucEKSjCERA0XQEZXKYBIBzCI LwofGE6vWK2KPlZrN7eYCogx TAHBFYa1EAyAJJKmajQPFWXk G4IxaX1rCKQrrIietJYnv8Yt PBJjz8hdHfpfeO8xYQgvM5ax LS48RXkhAJOzgKgwv3Bvg8Fp kXCgXeRsPKQgfN2lrQXyCQJc dvIFuCq3oLIkJ7LhMABlnEua L3GjtGKhsfRqlzHxNa4oNQlo XNKmmyMnk6q4bBteOZM7v3jc hiT7r3Lkaw9erTwtANLQAQOc Q44aiXZqdV8vfPUftH== Comment (test code = t8jxqMRgFBSoyNV1RACxZXZc 9835) t9ueh5IdgMCscNYbETchxMAz mzDlym75lIS9mY48GH6fMFNa DjY4NXBhgyJ5Kmx0PSIqKBLz pEDcH200j9ugl2gxmdJhyEY9 sLltAYIpivspPlH2YWdrTSNm ujzgAGn0RZtbJUHzcJR6XZUd zCXuH9GzACYeJT5daxv8AES0 HOpnBKQjQnX6QYWxiLHzPECm jHjfVUzyr906DMB3PrMwMSOa qnOjgJxgdM6aChKvFWURJmPU fKEfnF7lyInpkbZlKbKgTFLi sNrbdjReDIOpa5Z0RGSjPKAe pMYfPX7gDKEnxSXoKQ5jR5m9 hIMjR86nj0EcuRfmNVuJMtY2 CZSthsVvSU1FPdDzEFGdFBVt xgMcZOX5yb6pnF5mc3PwRKxl tTQjb1tkg1NjY0eraDjlOMim l1F3BOarPwVwbGXtjI7xakU1 SHYqWO6snZKuhPH9mHHxsJUl OP3olTIxLHOcfIQkTNFebgVJ AiWVwEQwsBVek3ZsOB7bICDk nY7jmASdR7QhtORsdo1soICe tyE1yN0gRVifdJgdx7reB4k7 vOdfIMyfPxAzTC79ZG1cwxPk y5ofT5uujhGsnbNjh6LoSWPu loKrmV4ai1OqLefsGP1rISY7 MbGSYRixlv8ylTBmBrGgn9Ja cFKyzWUlZL1WHGKdLZ0jNBXf kKonxJrol7LhvmKuCWfbET6x HGLUQPHsFUahbWZrl8dcd1Lm I9lgbPwoMQwts0B8OZqgasHs pXzacAuvpUXvyHneFCGmht8r bCBzcGluZGxlZCBjZWxscyBp asZjpV7cpvKJIGpht4OwmK2n xTkpTpQ1aSFrjXPjv8YrA3Hh t9XnmR7st3i5wQLlzkBlsZ90 BTNyymNeuOPmQX7hbJSkJXiq aWxlIHRoZSBzcGluZGxlZCBj ZWxsIHNpbiBCOSBhcmUgZXNz LA09jKQnxSsdzhTtTJOxpgKj IFRoZXJlIGFyZSBhIGZldyBu AFX0vsKgSlNmMLcrW87oejWu fHGpKY6oP6l5IUQvmU5fHFId LFZbPZZfJXTymZ7aWHFmu6Rc GEQry23py9k6qTQwKM3suZXk CLL2wxLmbMAkTJMtHQ8wUVIm JTMmIx7hPQgdyHW9JOXmh6In YmVlbiBpbmNsdWRlZCBpbiB0 nZNqgULec4AqOE1coxCge2Vh YiLpy4bsqqG8bJosz58xw1Ze IFxwYXJ9 Synoptic Checklist MELANOMA OF THE SKIN: (test code = 9864) Excision, Re-ExcisionMELANOMA OF THE SKIN: EXCISION, RE-EXCISION - All Fwsfeuckw0te Edition - Protocol posted: 02/07/2021 SPECIMEN Procedure: Excision Procedure: Richton node(s) biopsy Specimen Laterality: Right TUMOR Tumor Site: Skin of trunk: Chest, medial inferior 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) Maximum Tumor (Breslow) Thickness (Millimeters): 1.6 mm Macroscopic Satellite Nodule(s): Not identified Ulceration: Not identified Anatomic (Jarrett) Level: IV (Melanoma invades reticular dermis) Mitotic Rate: 3 mitoses per mm2 Microsatellite(s): Not identified Lymphovascular Invasion: Not identified Neurotropism: Not identified Tumor-Infiltrating Lymphocytes: Present, nonbrisk Tumor Regression: Not identified MARGINS: Margin Status for Invasive Melanoma: All margins negative for invasive melanoma REGIONAL LYMPH NODES: Regional Lymph Node Status: : All regional lymph nodes negative for tumor Total Number of Lymph Nodes Examined: 1 Number of Richton Nodes Examined: 1 PATHOLOGIC STAGE CLASSIFICATION (pTNM, AJCC 8th Edition): : Classification assigned in this report includes information from a prior procedure: [id number] pT Category: pT2a pN Category: pN0 Gross Description s7euwXKxCEHatCQWCGalYLxe (test code = rrInWJEmpUKtF0MepnseVHdd [id number]) XF1fTV6rhElxtNSfeMGbKQ8E XGRlZmYxXHBhcGVydzEyMjQw CVJnsREdgVN5NBGyCB0mkpna AJesFSjnMWEeugP1XDHkmNSt Y0MvCREwAZ6seqetTDW3UVve yS9kynDWCszrSb4bnRHbiJap ZjFcZmNoYXJzZXQwXGZuaWwg JQVoWEw3kT0IMsduO71ny7X0 Vnm3ZJGbVPZuO8SuOK9tYVUm lMFxK17JMgtaKBQ6SFXEZjhq JMMrHK1Et9dhDAOktKZcADJ0 HQfbrLGzKIEcJRQfYPp7GUNv GKitqHZkFV0oaXelBfkbeRnc y9RmdSXsNGpvJNPsNWHzHDrf IAKuEC8BTlYoIZSuPfZ4FtSp FFr2XHz2MO9IYeAnNTNqZPMl ExL0AHUkRAs1JSwqMT3VEIBr NzAyNTQzODAgNTUyNTAgXFx0 IDIgXFxmIEFyaWFsIFxcZnMg MTAgXFxmYiBcXGZsIFxcbmN9 XHBsYWluXGJcZnMyMCBBOlxw NVZySMbhhMmdjN5wNUVpE46l r0FSd5PdDE7ZGEx8kvGleote dT1rYYPqxqFpAVrieRUuZ5cb OoqvMcMhZyVbFJWGSO12rT3e xYFivY7kjQKwq1KnPRTnsMwc bGFyeSwgcmlnaHQgYXhpbGxh nqjpj4JreTjbYIxvjYbgoMph rp6mNDYfOIHkXEakaUBnrdFm Sgv5KMeyIWcvlgu9rt9nWgs1 AUZcfHBzdQPsLU26VLYzGASt ABIzJJkct2UnhBwmcjxrYzqh GHSiMsYfeiP6DHHqXEY7BQKt QLVYRCMtNRS6HALgDbB2WZFz ITTejGUixM6urXSub9MrWlqp PDFfHIhwpDTmSWHDT4LXU82d R88HLZqpGZRukIevXOUoQIm2 VwJiYGD7HsDyWNouAPVaIYQk j7LoBzneBHn9pLPaIU0bKQEf y4EugLdepjYrIkTuSPNnw4Rj V0V3DAFhEOtxw0wpGASsHDoa i1YqSJeLLGJIDX1HPB0cxPK9 OCcZQ8VWE9uOxDEdWBS7kMX3 BPCMHjgiePB4zSD0mE09CRPw YYWolHWwOEihH710W9R8PMSo AJaae7tlXPItVLaqc9IrHUrB WWAIBN3RRM6eaXK5GJgXA4TX AHvnMROmAfqvyXNWSQN4RNxr uHngkSq4e4hwcBLjj4p4JCuu IKJ8oIuenICjlmiusPGktJzd xbYwLJ9OIJAtiVOAWNE1HP3k HKw4OLxaQXTzO0FuN5PjhxPa uSSeCZAjugSru5qcSAI0GAAm gJNnlEZoWkGuXfqzAFY5DCZd WFrgTF0Yu5ktZKSzmSFxVHN5 IFxcaWQgNTEwMDIgXFxkYiAg C3LCGTZgGVTlTHOkVTKvXUh1 FKdxU3OJXGSiDZH4DMVdUKTc TaY8BXg0WTUDTw8yGUC1NHR0 UboqPmR2BKI9HXDiYSVgEbGl XGYgQXJpYWwgXFxmcyAxMCBc BUYyYTxvKffwXGasO47dkLdl cV0iHdjzkxOcYHG2QXBazxAE ClxwbGFpblxlcGljTmVzdERv YzEgDQpcbHRycGFyXGxpbjBc cmluMCANClxsdHJjaFxiXGNm SDlrlkNaMPUoKAW0TTExcYrp zPxmg7frSTGfY6r5OFIeOOA2 FE7nfZJva14uSRXliW9ohJJv hAn0G4ezz9PyITVgv0NnYNvb bgxuk4VugUNmQRFwA1w3HEgm fZHeFRydVSgrUGWdOW0plrJt NBSqEkAiw5YpUJvuObSvNtzs VHKrGGZ6ByZyeDYoQvMteJXe UxheM75wFSawaBBoAAWlAcT1 LC9pn7gycjT3oDO3ILiqFI4d hZIgxTNuEXkqsWlzLAVxuT2v eZHnkHi8D1whOELqe6JvWQCu m8AoEK7qCNUyfX3aIoJemZb4 I3icKTZnmjmqbUIpgBD6ORSx sY1yLJ1lTCMnYTWbbqQ0pTNl j2LkNiFyZCDgTjC0wCXrp9ur inOpscYzBQJcDZU5OEAaVPJr vXV1rXi1VXgbAjascUxdR6vn N7KiPUIuiBWutkxgjDHjIxdv eAH9JHMlmTXik2Gjxh03jnUj TRGpbGHvJPPaCdB6KBJhUISz yZFnzrOnYM8wWNXmjhmjaXWn AK2ncEVfvD2cWL0af5J7amTc NIA6IQXnuBVzFCwyQxCrXSqg EQRosNifYMIqCWSce20zeIJm cmVhIGNvbWVzIHRvIHdpdGhp hbRwRwTpK14mOyObjWO6qZHo e4UyTEAmy2PfsJUmD7dvDSSi EyYfK27dLbGmjDP4tWCqpRFh zFTsIRWqdnXjUQ2eaurrnndb Ci7aBHFwNNEbk88fiKuzNDkx LpGrtV1jSO3oodrjdtgwTS5a NHVdFDScbGCdta7jIAAsZBGw vMllbZRvUBOudhDfYV2uiyqb jk8yINNoEYAbbSCqmJ5hpyQp viRvfhexLWPbflHev6LkeOid bmVkLiBcbGluZSBcbGluZSBJ FzrrO40ZRQfcXwr3HB6mTWB2 KKgcuNBrLNw0BD7fGJ6qTU3g aWdodCBsYXRlcmFsXGxpbmUg WDHijaPXTob4RSCwP9DXORlM CqREQ0OWNrAIGKf3CXZjYNHw Mgq2r0PsBGXvy1BsvHplEJXf tlmue8afHTI7pAwuUoMkoFll DUMdGBb6IlncFoSbsI9uPGMy iPlmjV5jVLXuDWIgaVY0OHEs JZZ7GsKjGZtwIIBfSHUfAJ9w pcmbdpobdV3cZWUfVJPaiOY6 ORE2HRE2FjGxCDssQZHDYAEt VEE0IwMvQBqnJPUqnsQwvwGk iIPywZ2tTOafBEZpARIivW1m j7TbRX6nEbAuogLvj7IvsCf1 eNIrTJLbk20pz3ZwKUIzm0Jb tL9zkR3yRMVgk3SsbD0cv2Kq ZXIuICBccHJvdGVjdHtcZmll eGQ2KSakWbviuG5kbWGYTIOW IbhVBfukxaSbMS6SGT8PHnTL PS98YwYpEMO6KMrCO5QXcQA8 Pts6NUp2vLtmDwxylxTogKQk VmRGnP3MCfejPmkjlZV9SEuj NvkehP9otCLXSDSYLasKNeye qbMwGH8ZCU9QTE2DeYUfLTE1 kQX3KEYEAldzyTR9qFG6yW33 BRMaJGXdjHHjDUooL995QDHr GAddLUt2taMdMVDkOmSmKQxa NWEjN40um0OMv3DaXUNhq8ph zYilu8EnvOSlWEtvRMRkjQBo SXuwlX9bElKiv7uwbYc2GPap saA6SFKoqz4vsGhqlZ1zUQwh t7bjJSJ4DUQfjKTvgDSeIDan dAvifU3tLmFvRmr8AKvsQQLn C6ZrP2HterJ8RVAsKVwpXDHd MTYgDQp9 Biomarker Block(s) o4zkcFLkYKDnbNS2BOMaVCVr (test code = 9841) o3gwk3ZzgIUwcIObZQspkKXn pjRrjj17eGT8lM56EX3eOKDx BpT2SQHvwkM1Rwd6AZPiEPBc rDFmP610v1xed2fmqxWzpMG4 pGtmLPRjntlhEoN7HPjkHCTo hxjqBBe0JKqzWVHaeIL6UYMc iKIkZ2GlMVKfCT4zeke8BZB9 EBgpOLPqWxL3WHSrbCUvTJGx xEbjVJhio939VAU8OdThRTTx zqUyhUurnI2pCaUzRUFUxM9k ooxqByhlTPQkMIQ4RDSpBBTl tqWgvL77ru5ntUM0c6RuAR5i C8HaUSZ1dPMxLLYsb16rdHjn aQnsABPQp9OgLGa2MLFiWWDi cn0= Disclaimer (test code h6jwgEOhBQQkvTIaRzTeLBIg = 9844) TOVnm5yqDGSexBTsKlUgVvOk InSrOanofIZuPNOmFoZhj4zf v130iQNtq4kgLXMkKdN1xGWs EMSjlEPgR073ARYhWLdvu9qm e4GvIJZugOEzy1A1FJVGqwfe gUo3tJwyP16vx8C5LzdcY4ek LOOhEQTrW7PsUG7oBILuRpz5 BJH8SAH0RDFrILIvC0DgGQ6v VISzwHVmSLn2w4faqJsxLWIe ZYH1u6ciRXfrggPsNJ3vfy4h uIw3y2rfdxOoIWGfPWPnsUMH LBSrN0PmaAqlYt7daNb7vDro HgdtSSI4Bcr0FX4rld82bce4 oFxbZLLjejoeZyR1EWhzSHMe knzpNGv8JWdeTVBdxTD6NZDi kBLlC6TtQHMjWB2xwtt6NNT4 OKkpPQSvNyH1BEDtjZOaBLQb kSvzBZvmu918RML6JlZhCA2s C5Ujy0V8wK9bkHLgJSKdqLSv XqTiGEJcrq8iwQStKGtsl5Ph OHC6juV1kTExlKTnGILbZR61 Zufyh3WvKqwqQTK8PYDjkqNu l7Btt3bpZwYlixXlO3wgF0Os LJSoPTCkGNAaBoQhsxQtq1Pl p5JptHScgCf7j6fhLNWsGGJx vDieo5dfCFT0CIUfD4A7kKEb k7gaUDauGYLpuFH0ojG8QDXy sYGrM7LjtR5gIIHaPE0vxon9 p9anYZJ3YMlhJNYoCoH1daC8 RQVguCWfEZQngHxvEWffd148 PZV6HvHhGHQfy9IoY5CqwVgf F28maIsyC93hIOTwgDibxM9y tTyraT9tNpWwPrCdRSfmoJkb lXNwxbrrYOdwefO9LKsiatjl BFMuWGqmX0wbMrSrHZOboZqn EIfly6EcNZAwKHIeSrrkoqQ0 HUHFl92rPUMam3MnQXUcnO8w zSVjROmktiFhjKS3FKcfdmSr UgYtvsLoUZWjoZ9pNRBeGN9n JINljaFhcf4ddmPbFAOaATGl W9FwekadzTokleAiDZTghc9j ddSnRHT4BFHNVA3XLIVoEESn d86bGWWtqGxaaI6iiMWnkxNl VKPae5LxeY1uvMEMHKTbM9by CX9sPWxxd8IaoFImrACxqAK6 YXQsv0SjVmOqdsSzdJLyxQYf B7AqsDvzH3xoQKEgWUSernYw tXYpx5CjWOKijAK0wSIcPS5A MmRBw52nTZDyEBXAxdPkQRMo pNkcjQY5maY6hH8qFnNQOzUr wGEgyAZoPbqaCTLqv507cq9q joD5RGIwECTkmksjh3XbSFMu OXSpxS35YGWfSPQxbk0qbzve zIKholBhW5Tpzql7zC8qMHRr YWluXGYxXGZzMjJcbGFuZzEw MzNcaGljaFxmMVxkYmNoXGYx MXnlI3vkTiXrJuUpVqalQNT5 [facility] 2022-02-04 12:35:52 Test Item Value Reference Range Interpretation Comments Submitted Clinical v8fweIYzXAMaf8njPSLgmRIg History (test code = ZzEwMzNcZnRuYmpcdWMxIHtc 75448) obIhPKxdb4QfZ5BuPdUuDZge bnNpXGRlZmxhbmcxMDMzXGZ0 ntJvHUZcVRerGTUlLTdfTi4c vXMhqCsyZuQhCKEzk0pdbeZG ldutvVs5v0zcGIUlVnV6wQVc SAkqJ7fsltUypLZvWCOgWMk1 iY87WDCguE4guGBfNZiezsNx LdN1CWfdULRcFkJ9AKYeqCBb SDXvY1pyIRXdCVyyQHFuWEgj mEUuXQF6jGzbw0Z4kKYdnOQm tPbcDgCwCoHkWpCKx5DvDRh6 rSrfS4LuKIBbGqR6mFMaTJAq PUcjKYHbSAIbarH1mW19UNdg gkN7tIGrs4Rgc61sg508sI8l bBHqOID1JQAlEUTkbEVjAHNe VIV2YCFpnKSuY3esMFNmTI7h merySIptXDwqWBErkPI4DROc lHKxI8CnDVHlYFjnFSCuahe2 MxWfXv3isUOysEgwRCgti4zo f0zruENcTaf3OHRxUsXjDkjc KNwel0Dap0qxPWUguc1oDKA9 fIZffUzgg7D3dDUpFDXxmFOh xsLnHCStObI4JQqxPF4ace87 OAUrQHX7bt3ksKOffIjdieEu nJWnWEluV6OvRFSpt598UTBp K9HsBHGua4C2qtHePnDtGIWg vJS9woY6DPRdRNr9bYYlwwQ5 yjVepGCgG6prvW7tKONiDI6a bhnrx2bpDYvqYKjeBNLldMP8 ikD7ZKNvdTOzV1JaoP4tEKCo ESoqKXKuion1ArZyVf4mdMYn eTcyMFxzYmtwYWdlXHBnbmNv bnRccGduZGVjXHBsYWluXHBs YWluXGYwXGZzMjRccWxccGxh jP3iOjMoVmDlUUmbKN9lUPDl S2ckuIEpHRQcAKYxD9xtEhIy tZ8emWufGTmtnyEcWH7mfVjd tmSctUFjXDnkmi0dTVLgYmRj r7ehYA6bAOYhWDJ6EKyUWZYs NTldXHBsYWluXGYxXGZzMjJc bGFuZzEwMzNcaGljaFxmMVxk DzHoYYMbWQqoW3hjHlIiTkUw EbkqWWX2qQ== Diagnosis (test code v1auqAQxLIDqlDV7TVKpIDXb = 34) a5qnk8AiqKAufUEyKUpbnMZf vcNfxq06uDB4gU06SU6nCOTe GqR3QAZdbfL6Spv7JZSgLGWh eSFgT694s1yjh6ioyuCmeFF4 IGCaYZVuK5ZrNI8iKIVmuRYs Y49vnLCtGNL1CVGdWTKdiPZx RMCpGKY9HEZheBErB8zeYYEc LH6vctuyEBygFWlqEYUhdWJ2 TTCzcKUuO3ZjUOLkHEneTXEx fru0UmHsHa8bgRPvnYobZKxv MAJaXZWsVVafKVXnNmMqP6Bv HJN4QHJwS2s6QUO5wRxkOJM0 HOZtaoKfaaRkQNe6cCPpGB9p DIXrCyTmDFCzu7JnAY3fUQGw hADtSXT5FBFrrm3wTYI5Vewk pEkfmKtyDRFpCKJ3i672Pqor YNCfcHs2NoNvvJioKyHzZGEl VCUNeyAsvJwmlXrpvg1lYBwh rASwMG9reSAenu25SVykMN71 aWZpZWQgKDAvMSkuXHBhciBT CNZmX41qeMMcjF1gQBhmFLYv bGkwXGxpbjBccGFyXGNmMSBC ScPGkXcinMMnqQIkoSshq8eb biBlbGxpcHNlOlxwYXJcbGk3 AlHmjLouRtMpKWQnZKKMg4ja DOSkWTHuwHMeoKQnonE6qKLk JXggTSpptnjvy2ZpH8wrTFqm l381xcVus7Nvzt2etDDoRDVE I3YAKUvBPsSEFUXYBWWMBMNA Gw8EXLHHMN0ZXAPZH00TCLCL VRVVVG3PRPEFKGPCPcWSXKIo isKIHqEAWN5YGYEVZKBSDoNN XdhcVU7wVL2IIdKfF2qGFkbz JBFCSRa0FSrPNQLgdbUCHLSw G4InoK5cZRSrbIjzzVDxv5Xb ZQTdo4qqJbyykP8rFUixJ2ep OI83RNobHDSglFcpo4Kjz3Jv cFBjZnElDOJzvU5ieSGuIIOj ceFSpBs3oSKoA0WtKPXigIsl X4AevEUlwyJmzoSyOi9eTWrf VYEingMbm7k9jHcaOLR3y9md tcL7w2Acsp5tkLkxWYORVPGg D13jiJCpnH5qiGTjeN== Comment (test code = m9hutGVwFTPcsYK9NDQgRATu 9835) x6qno5ZapCEpmMKbHIfoxQIq jqOecr50zMY6vF05KC4fXENp KeO3BSMjpiZ2Tmb3LTDwKTCh jNAjP554o0ydz8timpCeyXK0 gWgpNYEabmzvXrG3NTnsRNOv kofmKJt6RRfjWCRwuFJ5UCMr xTPjB6GvDVOgDN1idoe0TJD2 XUloDWSgOjY7XHTwkNQcFAYy eEkfWHbly508EBM0TqMbZFTd wmShcMazeC4hSyNnLABXKgRE hGDwgX8kkDoogpHfRkQcISPz kKvfciEpFZIvo2F5CKOoOCWl kLEfZV2mISQzpXDaLY6mN8e5 tQBbU85rz6RldYbcMKgNMdI8 OCXkspAzPY1XUvYiWKIjITPt lqYzAYX4hq9btB8sl8VdJCyf xHJlw6gtr9JhR7qtaUqrZYvf w4Y8OBumAnQikKLnlG4fycW7 VALfBJ3dyXWxsSK2rHDtsACj CB4qwEXuICGbtONyAEVqvpTY McONpQUspVPzm0XaXL4eNTGp pV1hcBBsX3CzyTGhwg1yvQOc faV8hI9vCVqwySkpc3bgD7l8 bPwtGBxvZpLyZF21BX1sqrFd s4khC8dwfoGzxuOvs6IrLEXx qvNuzX4lk6DzJpymBQ5uAZF4 WfMBUDfxcb5hmAXdAzBst4Mg wYUwdFRkIO0BBGIjMO6gSOWv dTzhbXlmc5DrfyVbSOixRZ8j IXZRAXYlBTjxpPMth1rnj4Vp Y5qydQopFBcmf9Y2YAjmqaGx pXmbaHbzcVYjuHweKBXjqh5j bCBzcGluZGxlZCBjZWxscyBp kmFldP2jowRSSAnyy8EnpZ6m pJefQvL0aDFufYZeb5KvW1Jw y3VawF2sv7s8mHFbnbBbgM79 EXFbsjCegKPnTI3lrNHpPVrk aWxlIHRoZSBzcGluZGxlZCBj ZWxsIHNpbiBCOSBhcmUgZXNz GA40dWUcbGpdtrLoUSPzkxGc IFRoZXJlIGFyZSBhIGZldyBu JIK9jxHrYsWhINytH33twjQn aGPjWV4uJ1c9GEVioT6mWSZf MFWhNUIbERNdvX5vASYiq1Vd AGPbk17ms5l3bNRwLU2fbXSu KOK1gkGlkSDzWEZxIU0jEFKm NRWuTj3iYVmnqOL0OYDlu0Aq YmVlbiBpbmNsdWRlZCBpbiB0 cZSflTJlc1VuCT8ypgHfd4Gn RqBdb0ldpgJ4wQwnh93zb5Pv IFxwYXJ9 Synoptic Checklist MELANOMA OF THE SKIN: (test code = 9864) Excision, Re-ExcisionMELANOMA OF THE SKIN: EXCISION, RE-EXCISION - All Sokmnkqpl5cj Edition - Protocol posted: 02/07/2021 SPECIMEN Procedure: Excision Procedure: Richton node(s) biopsy Specimen Laterality: Right TUMOR Tumor Site: Skin of trunk: Chest, medial inferior 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) Maximum Tumor (Breslow) Thickness (Millimeters): 1.6 mm Macroscopic Satellite Nodule(s): Not identified Ulceration: Not identified Anatomic (Jarrett) Level: IV (Melanoma invades reticular dermis) Mitotic Rate: 3 mitoses per mm2 Microsatellite(s): Not identified Lymphovascular Invasion: Not identified Neurotropism: Not identified Tumor-Infiltrating Lymphocytes: Present, nonbrisk Tumor Regression: Not identified MARGINS: Margin Status for Invasive Melanoma: All margins negative for invasive melanoma REGIONAL LYMPH NODES: Regional Lymph Node Status: : All regional lymph nodes negative for tumor Total Number of Lymph Nodes Examined: 1 Number of Richton Nodes Examined: 1 PATHOLOGIC STAGE CLASSIFICATION (pTNM, AJCC 8th Edition): : Classification assigned in this report includes information from a prior procedure: [id number] pT Category: pT2a pN Category: pN0 Gross Description [id number] (test code = qsEqBWSohOSaD5IzljgnECor [id number]) QF7oYU3daSxszRNzfPIqST5F XGRlZmYxXHBhcGVydzEyMjQw YNBfgOGtuLI9NNVvXB2dzjqf NUrlYUrwGLHytaT3TOUedPJe Y9UpZUCvZJ9kbthqUBZ5QQei pA7wghZNKnuwZy6nhRYypDpx ZjFcZmNoYXJzZXQwXGZuaWwg CCRiVLh4eF9GBmcdW92td0B0 Lgl3WDKrNWPjX6YnYJ6jERHg bCEhO02PAcytIRJ3EQHAJbxd BRIkSE8Bp5dgCYWmpPZvQVN4 MSyqwVXpSAUqRVGyAIw4SLIj LWyldSUgSU8ltBqlBlresTbj y4ZejJEuKXokHDOmKYXoYXux RSDpPY4YOiEuNSXaWmW3UjGk ENh3EHu1GX0QHtTjMOTgMXOi LeH1RTEbIZk0RAebWM2JTDQa NzAyNTQzODAgNTUyNTAgXFx0 IDIgXFxmIEFyaWFsIFxcZnMg MTAgXFxmYiBcXGZsIFxcbmN9 XHBsYWluXGJcZnMyMCBBOlxw OLNwIZgzxJzxaB9fETQkR52f x4DNk0MbIB9MFVt9tdVmanro kK7hCEStqyXxLObtiYKlE3qh OxaeFsEnRsKgHWHCWC76gI9o oOBuhL8znTBbn6AuCRLpwZgo bGFyeSwgcmlnaHQgYXhpbGxh ctqfy3TlyKfbKHdruJrreZmq wh3xXWMoLQTySNsbuOEirdJl Zuw1GUvfMJofsop2jz9wGox8 CHBenJFhwVSkUJ46CBHeQJWv EVXnTBnod7SynDsdybquVkjn SRSmZxMtitD2DHDfXXV7BQHk QSASTIKnALW1RSEiMwL5OKOt TLBqsYSotO1jiKLvq8QbXdxd JPCdQOhurAWlQAUUT7ERA68w V72QXTukAPVxsMhkYWPbZOp6 IxSwUQH1MtGxEHazBCBuQVWh c4BlBscxEWa6jFNyJM9lFORc d1GkwCkngrXhKeIeTVVhl1Gy I2X2UOBvRJzfs5wqXDEqQBpl w7JwUMrFJSVTOA9ANV1mjVC7 AIrED9JOL4eKcEIhRHH7aYY9 ZAGHOudbfOE5hMO7bJ49HWUv ZAQnjMNcGOhuJ563U9O7NJMa ZWvim4dkIXCaNQibk6HpPPxG QWFSPW8LXU1ipON5GXuUI8OH EWvfIQWpJtolzHZNRUY8ZHch rFnjbCe2f3nzoSPdz0d1TQfg JOT8rMryoEFpsvejyYPzmMxm vlMyIP2WAQNhoTKLNHM5JI0w QBk0CEgnGPEdQ1KpG2JxhoCr mYEfSITuepHyq7liCMV6RZWr yQHxePMwSmRzBxxzXJS1HJMx PZnrNX8Vb9rzKJDdwOIeJSI4 IFxcaWQgNTEwMDIgXFxkYiAg W4SGTKQnOPBvWVNmVJRuPMa6 VAlhA5HQGPKaWIJ2HIVsNDUg QpT6SRu2XAQXEk6yNSH2HRI4 DsjxZiT8XHK2XFKgTGLcOdOn XGYgQXJpYWwgXFxmcyAxMCBc DIEbRYwgSuldAWypZ29yaTfm uH4uAbmnrxNoHCD4KKOhgcLL ClxwbGFpblxlcGljTmVzdERv YzEgDQpcbHRycGFyXGxpbjBc cmluMCANClxsdHJjaFxiXGNm TKkkvaJvFEZrUMZ1HKAwyPod sZrmw2vvCQHbU8d5TBWfRXX0 XY9qnPAjz99sFAGigF9kyWSx lTh9D2tje9DfBPVdv1KyUFpg riauy8QfdGGdMFQqX5m1OVse tHPuLXbwPGuxJRZqHT7zlcOw SMQqOcOgo0RaLYmjGaVaXotg CGZtOFG9KyPdnWDtFpWevTAd HhjnC95dKCfmdTCpQLBbGrU8 GC5jl2yyhjC9zLA4UKvkAJ6o tJNdiOEtTRafxXryQMUpmJ9q fBUatXh2B1chJZCze8FfQZGi s4OiYX2nINSuvU4wPsThhMt6 F2zdVDIvhjbvmEBfyWH4YDKv mH5wJE9cQBYmYGMxjcW9gXDr n0EcFwLnNXJoOdZ2vUPqm9ux ynNcktMgNEKpRFV1SWFrDIFb iRK3gEh2AGspGndjgDvhY0eu G1LlUVYuaGBrezxwvDYqZapl eZP2BBExuHQdz1Kstu92yiDj XVAakMCoEDRjKeV3EVWoHTTg eVMvzpWzOL4cILRcllrfnPWm JM9enCNacV2iSF4oa5X1zrLa CFL8JNAfgLGbZFahYiUcTMpz FOVfiEgtOGUeOQCjy28toMNx cmVhIGNvbWVzIHRvIHdpdGhp joAxLmVlY96xIdAbuHV7uLEn t3KcFEIij5ZehNQxR0viAKCn XfFuX38zSyDmyIB3kNUkhSGu eURnWEWbjzHpEW9ymfdfmucj Uq4kLHLcQCXrk79nhMruVVuu ZcJzkP9kXX7vcvgujoneZR9a HBBjFVYbtXVezx6dWPRlFMXo yWcncAFzUZKxuxNeTX9wkqkj hh1gENCqWBLidLWzrT6gzgJb tjZrutmoDQKguzUai8WwdOyi bmVkLiBcbGluZSBcbGluZSBJ XzobQ64XHRysOmn9GW2tZKV1 LDjjpNJnJAt4FQ6tEY5kUP1d aWdodCBsYXRlcmFsXGxpbmUg WZIeskNOTme7OXAnI2LMJOyP ApCLP3WCSlKHELg3WZYhELBp Dgd0e4VwNUTbh9EjgQipIVJn zsppb6hxAWU4dZeqWiXjpUbl MQPaMDu3LvhrHdShsM2yIIYz hGfjeE0xRFXxJZLzqOU3GAMm ZUE7HgEkRCwpMGFyQRHhIF5n qoywwcrxnQ1eTZVqLZLtyUJ2 BQU9VML1BiJpULsbTPNHNXRl BFS2GbVnBHmoADIxbzTspcNu oTVwnT7tWIodJVWsPZLptI9q r4GnXN9bQdUxarBro0GcqRa3 hNUaOXIlf71ek7ShLGBbm4Ts nG6osG2zVEYsi0GfrJ7zw7My ZXIuICBccHJvdGVjdHtcZmll zSF7ZGmnIpsgeI5qiYUQPBQB HqqCRexphhWqTV3STA0OLzQP BM81XiIkOAH9NPiEV3ICwOJ1 Aux1XPg3cVkwYnxvkgAcjAXk OkDLyX3XZhxtJvfncIS9NYzw MlqwfD7apYZAAIZQIvhTLrrk xbEzRY8GJA9SIG0KmDYdOON7 vLL8REHWMkfvrAI3kGO1rI51 UMToVGIudTPgCGwrC451CRWp HWvdUMn0mjLpTOQfLuAbEPvk THOlW12ba0GZe7KuRFTsr5mj sDjzk9DivAFkRJjyISVbyLZj DQnnbF4wNgZaw0nxdWm9MTvw dxJ2QZGqrp3ezKmwrM1gXDxn j9niCYD3RJNemCXorLMsHOio mEjeqB4zAeBxVnw1HPfgXCCd S7RnP8HzyoH0JOFuGYrzYTEf MTYgDQp9 Biomarker Block(s) n5sixMHkEDEipNR1EKTjFJJt (test code = 9841) w7xsf2LysANgeCJtNEytvJUg eaOjkh98wFF3lD52GX9gCNKy RbQ3KCUlkjM2Inn9EIYrBAMb fVHgB297p9ruz2nfybMuyFM0 jMwtKCEmplfaPiM2MNiwLXVs ibaeQPi7DXeqXMYewYZ7GHKt lDNnJ3RqDTRbLD2pkce3QKD5 BLygANNjVhA2UIHhnLZnBKEj rPxbFQafd146DVM8NfVtDXIe ibTwdYfgyK5tUnRyBFZPuV1z bbvtJxnkHACzJGP4ZGLmTQIu wpPqvZ50uk3lhYT8v1NwGM9n I9LsDBY5gIJjNAZdb31blTfg cXmmYQOOo7IhFZo1MCAwVTFb cn0= Disclaimer (test code b1ygwJCuLOXqqLPcBeOyMWEh = 9844) AJZvc2dpAKTydFFxDrBnUtIz FzWjHxbcuJHgCEOxNcZjp9dc l744tTLpb8stZHDgKwU3fWUr HAHhfHIkD356FAWsJKeng8jx c9LhWZPysDWwb2W2LAUIgadz sIm8fNllP86rs5Z6RsplZ4rv DGYuWFRiM5GaDG4xEXKtDog4 XOJ9DSK2TPAfEUDeW3JwBA6w RJMiiAFcHRc7a7wvpTvlHTYh CUO0q2qmJDwqdlSoTT2kbh0x dBp8u0scniMnDSArAXZngYFE LHOjU5KieZxfYq8ubDn3aHjt DgscOPS4Xlx9SV9gfk24yzq1 kQtiCFVuqvneFrL0TYsrLXUd wuthDOv3FUszWEDxwWI6PGKi lALwE4CeOYPeDD8uhkh8NTP5 PUrfEHWbPcW4DDAlvZFfDVOw sPioNMkcq900VCM2ZsMyPQ2v J0Lta2C3oL4zjCNjVRVbuLAa JbKsHNVchq1yaEJdCQtyl5Gu ZKT3ehI0dVLdnYKuZZAxOU00 Ajmzc8RoHkufGWN6XWElxuSk y6Nrd8zyHiWxdoVvZ7deD8Lb WYYlJMLzHXVqDqVcqcJym5Ay n1EgnBWyuZq1k0mfVAOyMUZm zDdou2ynQWI8FVRjJ4Z3kZLm g4efEHcsSZWosQM5noN4WRJo hACqN6JkyV5bSTYmGV7vnjq0 c0voCSW9ROdfQYUyFoR6twG6 XZRmqXQrWXUckCuwNKilw925 DEL1IbLrPUWqn4LzY9XkgDvt K57qrAqeI20qURLgvDfawB8i bBddaQ1uOrPtSgWxOZfzoWkq pUNvbtxxSBrxsaZ6YLfqqary ZEMaXZhyA3hkWoHxZZFydRfc HIozf2UhCXAuBFAlWwumtzH0 BNWPk95zGHCte0EaOIEtnW5b vCVdBYgflcFiaIO5JPqebjZq YwUcswHzKJMcqQ0mBOJyFQ3h BCXntvEvjq1ddqCfRREyMFIy P5RorhxosRgcgxTuGOAqng6l cpTkBZE1KWIQMI4ELBVzVLPc z78xZJBzgPrzzK0nuPJwrxIe AMSop0SbqE3yuHSHKZRiO2wa VF1kIZnst0GvpFFxmHWyiRP5 NRDtx7YlRyYodjUkbHAyqSBr W0GhnQmpZ4hqOGWnFDSyrwBh hZAit3BaJJKkqEO7yNWmRW3N KgLTc71pBRWxAECEsxUbSNUq tChklEH4gfB3cE4jNcPARnRx cTDtgMWmAkygHUWpg836qv7h hhR9PJIhSZExdjbyx7PpVFSx JYWpbT23SRYfTQNrim1mzjri lRYjbxQhG9Ohflf2fK4yACYs YWluXGYxXGZzMjJcbGFuZzEw MzNcaGljaFxmMVxkYmNoXGYx EPgfF5htPvVqGbPcPhfaQDM2 [facility] Glucose [id number] 11:35:02 Test Item Value Reference Interpretation Comments Range POC Glucose (test 118 mg/dL 70-99 H RN Notifie dCapillary code = 75286-6) blood sample s, e.g. obtained by fingerstick, ma y have inaccurate resu lts in patients with decreased perip heral blood flow. Met hod description: Al l results are patricio sured using Electroch emistry test methodolog y. The glucose in the sample mixes with the reagents on the test strip. The reac tion produces an tashi ctric current. The am ount of current produce d is proportional to the glucose concent ration in the blood. PO Sample Type (test Venous code = 9554) Performing Lab (test [facility] code = 78425) [facility] MD [facility], [address] [place] [address] 770 30; System Auditor: Jessica Preston MD Lab Interpretation Abnormal (test code = 78164-3) [facility] Glucose [id number] 11:35:02 Test Item Value Reference Interpretation Comments Range POC Glucose (test 118 mg/dL 70-99 H RN Notifie dCapillary code = 90099-6) blood sample s, e.g. obtained by fingerstick, ma y have inaccurate resu lts in patients with decreased perip heral blood flow. Met hod description: Al l results are patricio sured using Electroch emistry test methodolog y. The glucose in the sample mixes with the reagents on the test strip. The reac tion produces an tashi ctric current. The am ount of current produce d is proportional to the glucose concent ration in the blood. PO Sample Type (test Venous code = 9554) Performing Lab (test [facility] code = 28302) [facility], [address] [place] [address]; System Auditor: Jessica Preston MD Lab Interpretation Abnormal (test code = 63143-8) [facility] Glucose [id number] 11:35:02 Test Item Value Reference Interpretation Comments Range POC Glucose (test 118 mg/dL 70-99 H RN Notifie dCapillary code = 42071-1) blood sample s, e.g. obtained by fingerstick, ma y have inaccurate resu lts in patients with decreased perip heral blood flow. Met hod description: Al l results are patricio sured using Electroch emistry test methodolog y. The glucose in the sample mixes with the reagents on the test strip. The reac tion produces an tashi ctric current. The am ount of current produce d is proportional to the glucose concent ration in the blood. PO Sample Type (test Venous code = 9554) Performing Lab (test [facility] code = 76945) [facility] MD [facility], [address] [place] [address] 30; System Auditor: Jessica Preston MD Lab Interpretation Abnormal (test code = 53701-4) [facility] Glucose [id number] 11:35:02 Test Item Value Reference Interpretation Comments Range POC Glucose (test 118 mg/dL 70-99 H RN Notifie dCapillary code = 07302-9) blood sample s, e.g. obtained by fingerstick, ma y have inaccurate resu lts in patients with decreased perip heral blood flow. Met hod description: Al l results are patricio sured using Electroch emistry test methodolog y. The glucose in the sample mixes with the reagents on the test strip. The reac tion produces an tashi ctric current. The am ount of current produce d is proportional to the glucose concent ration in the blood. PO Sample Type (test Venous code = 9554) Performing Lab (test [facility] code = 99571) [facility] MD [facility], [address] [place] [address]; System Auditor: Jessica Preston MD Lab Interpretation Abnormal (test code = 60283-9) [facility] Glucose [id number] 11:35:02 Test Item Value Reference Interpretation Comments Range POC Glucose (test 118 mg/dL 70-99 H RN Notifie dCapillary code = 00214-6) blood sample s, e.g. obtained by fingerstick, ma y have inaccurate resu lts in patients with decreased perip heral blood flow. Met hod description: Al l results are patricio sured using Electroch emistry test methodolog y. The glucose in the sample mixes with the reagents on the test strip. The reac tion produces an tashi ctric current. The am ount of current produce d is proportional to the glucose concent ration in the blood. PO Sample Type (test Venous code = 9554) Performing Lab (test [facility] code = 96302) [facility] MD [facility], [address] [place] [address]; System Auditor: Jessica Preston MD Lab Interpretation Abnormal (test code = 18685-0) [facility]- Asymptomatic [id number] 06:03:51 Test Item Value Reference Range Interpretation Comments COVID19 (SARS Not Detected Not Detected CoV-2) Result (test code = ____[place] 91661-4) qualitative reverse-transcr iptase polymerase segundo n reaction (RT-PC R) developed for t [place] DANA 680 0 system and inte nded for qualitative detection of SA RS CoV-2 RNA in nasopharyngeal and oropharyngeal s wab specimens colle cted from any indivi duals, including those suspected of CO VID-19 by their health care provider, and t hose without symptom s or other reasons t o suspect COVID-1 9. A fact sheet for patients provid ed by the manufacture r ([employer]) c an be reviewed at:https://www. fda.go v/media/732468/ downlo ad. A fact shee t for Health Care pro viders is provided by the site safety manager ([employer]) and can be reviewed at: https://www.fda .gov/m edia/886946/mulu nload Results must be interpreted wit hin the context of all relevant clinic al and laboratory find ings and should not form the sole basis for a diagnosis or treatment decis ion. Positive result s do not rule out bacterial infec tion or co-infection with other viruses. Negative result s do not rule out SARS-CoV-2 and must be combined wit h clinical observations, p atient history, and/or epidemiological information. "Presumptive Positive" resul ts are due to partial amplification o f SARS-CoV-2 targ ets and indicates l ow amounts of viru s present in the specimen at or near the limit of detection. Regardless, individuals wit h "Presumptive Positive" resul ts should be manag ed per institutional guidelines as individuals pos itive for SARS-CoV-2 virus, including use o f appropriate inf ection control protoco ls. Internal contro ls are included to ass ess for possible amplification inhibitors. If inhibition is detected, testi ng is repeated and if inhibition is confirmed the specimen is res ulted as "Invalid". W hen an "Invalid" resul t occurs, it is recommended to wait 3 days before submitting a ne w specimen for te sting if clinically indicated. This assay has been approv ed by the FDA for use only under Emergency Use Authorization ( EUA) in laboratories that have been CLIA-certified to perform moderate-comple xity and high-comple xity tests. The performance characteristics of this assay were verified by the Microbiology Laboratory at [facility], CLIA Accreditation # : [id number] and CAP Accreditation # : [id number]. COVID19 SARS INSTANT PRINT OPERATOR Swab Source (test code = 91722) COVID19 SARS Pre-OR Procedure Indication (test code = 92062) [facility] PCR- Asymptomatic [id number] 06:03:51 Test Item Value Reference Range Interpretation Comments COVID19 (SARS Not Detected Not Detected CoV-2) Result (test code = ____This test i s a 27790-1) qualitative reverse-transcr iptase polymerase segundo n reaction (RT-PC R) developed for t he [place] [employer] 680 0 system and inte nded for qualitative detection of SA RS CoV-2 RNA in nasopharyngeal and oropharyngeal s wab specimens colle cted from any indivi duals, including those suspected of CO VID-19 by their health care provider, and t hose without symptom s or other reasons t o suspect COVID-1 9. A fact sheet for patients provid ed by the manufacture r ([employer]) c an be reviewed at:https://www. fda.go v/media/941960/ downlo ad. A fact shee t for Health Care pro viders is provided by the site safety manager ([employer]) and can be reviewed at: https://www.fda .gov/m edia/518498/mulu nload Results must be interpreted wit hin the context of all relevant clinic al and laboratory find ings and should not form the sole basis for a diagnosis or treatment decis ion. Positive result s do not rule out bacterial infec tion or co-infection with other viruses. Negative result s do not rule out SARS-CoV-2 and must be combined wit h clinical observations, p atient history, and/or epidemiological information. "Presumptive Positive" resul ts are due to partial amplification o f SARS-CoV-2 targ ets and indicates l ow amounts of viru s present in the specimen at or near the limit of detection. Regardless, individuals wit h "Presumptive Positive" resul ts should be manag ed per institutional guidelines as individuals pos itive for SARS-CoV-2 virus, including use o f appropriate inf ection control protoco ls. Internal contro ls are included to ass ess for possible amplification inhibitors. If inhibition is detected, testi ng is repeated and if inhibition is confirmed the specimen is res ulted as "Invalid". W hen an "Invalid" resul t occurs, it is recommended to wait 3 days before submitting a ne w specimen for te sting if clinically indicated. This assay has been approv ed by the FDA for use only under Emergency Use Authorization ( EUA) in laboratories that have been CLIA-certified to perform moderate-comple xity and high-comple xity tests. The performance characteristics of this assay were verified by the Microbiology Laboratory at [facility], CLIA Accreditation # : [id number] and CAP Accreditation # : [id number]. COVID19 SARS INSTANT PRINT OPERATOR Swab Source (test code = 50927) COVID19 SARS Pre-OR Procedure Indication (test code = 43515) [facility]- [facility]omatic [id number] 06:03:51 Test Item Value Reference Range Interpretation Comments COVID19 (SARS Not Detected Not Detected CoV-2) Result (test code = ____This test i s a 01800-4) qualitative reverse-transcr iptase polymerase segundo n reaction (RT-PC R) developed for t he [place] DA[employer] 680 0 system and inte nded for qualitative detection of SA RS CoV-2 RNA in nasopharyngeal and oropharyngeal s wab specimens colle cted from any indivi duals, including those suspected of CO VID-19 by their health care provider, and t hose without symptom s or other reasons t o suspect COVID-1 9. A fact sheet for patients provid ed by the manufacture r ([employer]) c an be reviewed at:https://www. fda.go v/media/216121/ downlo ad. A fact shee t for Health Care pro viders is provided by the site safety manager ([employer]) and can be reviewed at: https://www.fda .gov/m edia/551767/mulu nload Results must be interpreted wit hin the context of all relevant clinic al and laboratory find ings and should not form the sole basis for a diagnosis or treatment decis ion. Positive result s do not rule out bacterial infec tion or co-infection with other viruses. Negative result s do not rule out SARS-CoV-2 and must be combined wit h clinical observations, p atient history, and/or epidemiological information. "Presumptive Positive" resul ts are due to partial amplification o f SARS-CoV-2 targ ets and indicates l ow amounts of viru s present in the specimen at or near the limit of detection. Regardless, individuals wit h "Presumptive Positive" resul ts should be manag ed per institutional guidelines as individuals pos itive for SARS-CoV-2 virus, including use o f appropriate inf ection control protoco ls. Internal contro ls are included to ass ess for possible amplification inhibitors. If inhibition is detected, testi ng is repeated and if inhibition is confirmed the specimen is res ulted as "Invalid". W hen an "Invalid" resul t occurs, it is recommended to wait 3 days before submitting a ne w specimen for te sting if clinically indicated. This assay has been approv ed by the FDA for use only under Emergency Use Authorization ( EUA) in laboratories that have been CLIA-certified to perform moderate-comple xity and high-comple xity tests. The performance characteristics of this assay were verified by the Microbiology Laboratory at [facility], CLIA Accreditation # : [id number] and CAP Accreditation # : [id number]. COVID19 SARS INSTANT PRINT OPERATOR Swab Source (test code = 82986) COVID19 SARS Pre-OR Procedure Indication (test code = 23951) [facility] (S[facility]-2) PCR- Asymptomatic [id number] 06:03:51 Test Item Value Reference Range Interpretation Comments COVID19 (SARS Not Detected Not Detected CoV-2) Result (test code = ____This test i s a 12151-9) qualitative reverse-transcr iptase polymerase segundo n reaction (RT-PC R) developed for t he [employer] 680 0 system and inte nded for qualitative detection of SA RS CoV-2 RNA in nasopharyngeal and oropharyngeal s wab specimens colle cted from any indivi duals, including those suspected of CO VID-19 by their health care provider, and t hose without symptom s or other reasons t o suspect COVID-1 9. A fact sheet for patients provid ed by the manufacture r ([employer]) c an be reviewed at:https://www. fda.go v/media/458124/ downlo ad. A fact shee t for Health Care pro viders is provided by the site safety manager ([employer]) and can be reviewed at: https://www.fda .gov/m edia/506896/mulu nload Results must be interpreted wit hin the context of all relevant clinic al and laboratory find ings and should not form the sole basis for a diagnosis or treatment decis ion. Positive result s do not rule out bacterial infec tion or co-infection with other viruses. Negative result s do not rule out SARS-CoV-2 and must be combined wit h clinical observations, p atient history, and/or epidemiological information. "Presumptive Positive" resul ts are due to partial amplification o f SARS-CoV-2 targ ets and indicates l ow amounts of viru s present in the specimen at or near the limit of detection. Regardless, individuals wit h "Presumptive Positive" resul ts should be manag ed per institutional guidelines as individuals pos itive for SARS-CoV-2 virus, including use o f appropriate inf ection control protoco ls. Internal contro ls are included to ass ess for possible amplification inhibitors. If inhibition is detected, testi ng is repeated and if inhibition is confirmed the specimen is res ulted as "Invalid". W hen an "Invalid" resul t occurs, it is recommended to wait 3 days before submitting a ne w specimen for te sting if clinically indicated. This assay has been approv ed by the FDA for use only under Emergency Use Authorization ( EUA) in laboratories that have been CLIA-certified to perform moderate-comple xity and high-comple xity tests. The performance characteristics of this assay were verified by the Microbiology Laboratory at [facility], CLIA Accreditation # : [id number] and CAP Accreditation # : [id number]. COVID19 SARS INSTANT PRINT OPERATOR Swab Source (test code = 88295) COVID19 SARS Pre-OR Procedure Indication (test code = 12691) [facility] (SARS-[facility]-2) PCR- Asymptomatic [id number] 06:03:51 Test Item Value Reference Range Interpretation Comments COVID19 (SARS Not Detected Not Detected CoV-2) Result (test code = ____This test i s a 53316-6) qualitative reverse-transcr iptase polymerase segundo n reaction (RT-PC R) developed for t he [place] [employer] 680 0 system and inte nded for qualitative detection of SA RS CoV-2 RNA in nasopharyngeal and oropharyngeal s wab specimens colle cted from any indivi duals, including those suspected of CO VID-19 by their health care provider, and t hose without symptom s or other reasons t o suspect COVID-1 9. A fact sheet for patients provid ed by the manufacture r ([employer]) c an be reviewed at:https://www. fda.go v/media/477848/ downlo ad. A fact shee t for Health Care pro viders is provided by the site safety manager ([employer]) and can be reviewed at: https://www.fda .gov/m edia/051891/mulu nload Results must be interpreted wit hin the context of all relevant clinic al and laboratory find ings and should not form the sole basis for a diagnosis or treatment decis ion. Positive result s do not rule out bacterial infec tion or co-infection with other viruses. Negative result s do not rule out SARS-CoV-2 and must be combined wit h clinical observations, p atient history, and/or epidemiological information. "Presumptive Positive" resul ts are due to partial amplification o f SARS-CoV-2 targ ets and indicates l ow amounts of viru s present in the specimen at or near the limit of detection. Regardless, individuals wit h "Presumptive Positive" resul ts should be manag ed per institutional guidelines as individuals pos itive for SARS-CoV-2 virus, including use o f appropriate inf ection control protoco ls. Internal contro ls are included to ass ess for possible amplification inhibitors. If inhibition is detected, testi ng is repeated and if inhibition is confirmed the specimen is res ulted as "Invalid". W hen an "Invalid" resul t occurs, it is recommended to wait 3 days before submitting a ne w specimen for te sting if clinically indicated. This assay has been approv ed by the FDA for use only under Emergency Use Authorization ( EUA) in laboratories that have been CLIA-certified to perform moderate-comple xity and high-comple xity tests. The performance characteristics of this assay were verified by the Microbiology Laboratory at [facility], CLIA Accreditation # : [id number] and CAP Accreditation # : [id number]. COVID19 SARS INSTANT PRINT OPERATOR Swab Source (test code = 64919) COVID19 SARS Pre-OR Procedure Indication (test code = 28322) [facility]ation 2021-12-26 22:36:41 Test Item Value Reference Range Interpretation Comments Materials Received (test c4vffSMdRFStqIJpBxXi code = 9973) IPNpCQRfq0axJMHyhBBs ZzEwMzNcZnRuYmpcdWMx CGPtTiTqo9mus341fARb n0nqTPEwHiY3fAZgTPLk qVVvK308TCDoZRdav1tb f7UsIDBohPRmm8F3MIZS xekjzIl1cStaS75xy6N9 QhbzH4pmDBYoPSNcS6Ta YY4rEWXbJex9NFZ5LRQ5 WFCdMFDhP7QxDW2rZQRg jULePYt6f9ftgSjxNUTz RXG6e5yiXVllqtFsCE3u mj7ruAr5q0ljnzUuXPOe UQZenIGWUXIeO4TkmRvp Go6wvAu2cEttJhbbECB7 Guq6DA9azp36xfj0eZpl SNNogpbkXjU2AKclWYXh bsynZBz8LUjsWCExrBsx MFxtYXJncjcyMFxtYXJn rMW2EZCvqBWhL3VaHWMw MNopFRWawun9XuUrWp7l kHFlnTguFCdfu2npd0be gXAdAfp4OLBqBvExPgwo GZagi6Tvx6paJGLbse8i BXG2jARviFrkp8Y2wYWp TRBgrXKgxxMjYPDdsp45 vBGuvCOqdOOkkp8yqsYp jEMdeCTkXQT6uLToapZt DFRmvELlONRcBI4uxHMg VPTlsL4bhlluVWPxZbBm ndysUPOriGgzlwVnLb9z hEbdXHX0PSheI1kfqF7e LzF4BEcfQ0ioaH3kEOr8 KLpgiHD0TKRmbW7cMO7c wfuwv5jhXgYrWM0xiben n4qsXaQiZH7lzfq9i1vr MJT5PWmfVTQiCaM8njJ9 NDBcaGVhZGVyeTcyMFxm k220QDY3XyKxQHBff0Fq T5SibNvuS02chJdvS04s CPYckMazxS7fyXemoL5l DvKaJhXeXQl0ya28MGc5 kkujpUnzTUi7qtPcYWUf NUL3EUFvkXPhQFNiC8n2 drVpYSZhEUR4PYCknOGt QGFxS2j4fqDkTON4OXj7 cnBhZGRmdDNcdHJwYWRk YjBcdHJwYWRkZmIzXHRy zBBleLChuADgvG6sdVxq BBRtqCBnvM6fLIV4OXMm cmgzMjBcdHJoZHJcbHRy ve16PQEjwtYjfUAepGnb lPIkBSD1PJXwNWGuFNQb ZTF7OGGgIcDikaGqUVrb bGJyZHJiXGJyZHJzXGJy SSI2HOOiPhKsitOuMZve bGJyZHJsXGJyZHJzXGJy YIA8OQGhCcRsxyIxGYqd bGJyZHJyXGJyZHJzXGJy MNQ2TVSpCjGupmUqTUou bHBhZHQxMFxjbHBhZGZ0 U3fmaYJfAARfOHcmpQHz JCFsK7wcpSRtVZhbXGMb cGFkZmwzXGNscGFkYjBc W7qvRNGqAxRaS1XnlYc6 MDAwXGNsdmVydGFsdFxj nMPoEBH9KIZoFVZmYDVm LNA3AVVcNuYfgxFoXMll bGJyZHJiXGJyZHJzXGJy GOA1FPApZlKslkVaMInf bGJyZHJsXGJyZHJzXGJy TFU6TNHnWmYxsvQqDVbk bGJyZHJyXGJyZHJzXGJy IEH6ODJpDqJtnyEdPShh bHBhZHQxMFxjbHBhZGZ0 R2kocSFdYXJmLNyqmOWb XISzZ2apdPBqBVeiISCk cGFkZmwzXGNscGFkYjBc A5caFSSwUmWaN6ShiIi9 NjAwXGNsdmVydGFsdFxj jSQgAQZ1QKFbDUIoOOMy ZUN6WRSdJjRtbsMaEXnz bGJyZHJiXGJyZHJzXGJy CXY7WPAkLiJfbrVuVViq bGJyZHJsXGJyZHJzXGJy BCY3CMTgEdOhbhHxCLqa bGJyZHJyXGJyZHJzXGJy VXE5KRFdFkXmlrDzWJsg bHBhZHQxMFxjbHBhZGZ0 Z4llhGYgKWBxFEhgmXId BEGdT3ndcPOvLMzeLIBh cGFkZmwzXGNscGFkYjBc B3fxJAYjYeLzW6CzyVf7 YuKoESOpedKxjY08Jtmk i2GvWRWkTXW8YWxpFXdv bFxwbGFpblxmMVxmczIw WPbuzbgzOFYvRAjbW4ew HwAyWYGhrMgcGAdzi9Th XGYxXGNmMlxmczIwXGIg JLCoLVGjkN2xNkcjG1Ch cC8cRYpcBzgyO1csSVWc q5OabV2kORqybQXfeatb MVxmczIwXGxhbmcxMDMz HTwbH1pqPfYuOCCbkVlu UWezi7KsPINpQTZjTytj bqTgIHt6veQuCZTpxUgw nDOkOPyefeNxqOgcv2Fa ktVfmJjxOCWyNOl6gpEi lakbkIz5hKKdiSpzZOOe oSscuD0aAvVaJjBmRLxr bGFpblxmMVxmczIwXGxh dsezBCZaEHdzW5btQkHx APTptZnwUEpic0KxBZBl SYWoZkltecRiUWMzP09g bGVjdGVkXHBsYWluXGYx XGZzMjBcbGFuZzEwMzNc aGljaFxmMVxkYmNoXGYx LWokC9cePzHwM6LwOKLo NhYlpJRqO4tdO9SuuDpr YXJkXGludGJsXHNzcGFy DXF2jMLgczIycQNouOMl UXDeYEnsZMT9pRRklujv zROgbpaoGSppleX4HQXx YWluXGYxXGZzMjBcbGFu ZzEwMzNcaGljaFxmMVxk HoHvFWFlVRlxU2xbOzXx G1OoJTPlNhMtQkDEBYHj aXZlZFxwbGFpblxmMVxm czIwXGxhbmcxMDMzXGhp B6vmGlAdIVRujBzfFHvr g6BtPBRbXURoUofpsuSu TSb3mzIwQYEbwMuumA50 Nwzgfe56EPGed2oeBJOz N5JlyBUuXCIcaUSxDVrm MDhcdHJwYWRkZmwzXHRy cGFkZHIxMDhcdHJwYWRk ZnIzXHRycGFkZHQwXHRy uMBiZKE5Z7w4npPjTJUs LVo5itMoQZDsCbIvhABo UIE9SJt5HmxufpF2vASi N5o8MzhjuyVgKUqegJEc ir03PELhvxErmGAowYtt hFXuNXI5QNSoYMCbZQNs CKK2MQCfVaKmfmBuDXyc bGJyZHJiXGJyZHJzXGJy AWA6NJPpHsEfbkDoCOpr bGJyZHJsXGJyZHJzXGJy RGO6GIJvMjNlyrIpURwy bGJyZHJyXGJyZHJzXGJy BYI5YVUjJtLcceXeUGaa bHBhZHQxMFxjbHBhZGZ0 C1erpTJuZLZgLSsbbJEs ZNHqL7bdbVXmPSymHJHi cGFkZmwzXGNscGFkYjBc T3orJYWxFtBiR4AupEu6 MDAwXGNsdmVydGFsdFxj fEBkMFI9CJJwYUSvWBZo VYP2ITTrNjWeszTrUGir bGJyZHJiXGJyZHJzXGJy NRD2GWWtKtGnvqTaHNxl bGJyZHJsXGJyZHJzXGJy ICO6ABWkJmBxjqPxRXrd bGJyZHJyXGJyZHJzXGJy JMH7XWAuNeCtnbBaHBxj bHBhZHQxMFxjbHBhZGZ0 E0eykYRyPYGcTRyatWXe UYZpL3fhhLAkWPzmMOQs cGFkZmwzXGNscGFkYjBc A5juLXUdVjNeJ8HltGi0 NjAwXGNsdmVydGFsdFxj dBFkITH7VIHaQREnEOFh YWH6XZYbJmAeapZsNRcn bGJyZHJiXGJyZHJzXGJy ZHU4KAMxRqUuujHqAJwy bGJyZHJsXGJyZHJzXGJy FPC4CYAkDjInkcOfFLul bGJyZHJyXGJyZHJzXGJy MLL5WFHeHiZgouJcQMwx bHBhZHQxMFxjbHBhZGZ0 C4bpwWQdNWEuLBkkuEMr WTBxH5rxsPDrWZhhJRRi cGFkZmwzXGNscGFkYjBc Z3ahBAYjFfWqU4CllXx5 WvUtWGNzeaQyfN17Gpew g7UeBQAdNIO6FLntXCur bFxwbGFpblxmMFxmczI0 XHBsYWluXGYxXGZzMjBc bGFuZzEwMzNcaGljaFxm LBtqDwCcYYWbYHctJ0ui IoVnO5VkXNGzIcNaGI7y C8PcBh8sZeKfZzxaFHko O5ToNYCpSonST2tDBICr NSQLV2gztLEraamuUFlh czIwXGxhbmcxMDMzXGhp P1ogPmVzDYLleFtmHDej i9NqTBRvXODiYpeuecNq ISf3rbLnNDTktRtzrGZe SHwexwQxhKpap8GkpxWg dXgwXHMwXHFsXHBsYWlu YKDiMJUtZxXpaOxyyR5c UwNdFmPqIPvlQZ0fHWYk C9bkcOAyKWLeVMPdR9sq XoUeoI9xpBnhKEriJeHs BcHhVXP6GxDwBfMeRzZj aAqteC8cFgSpRkTwZNis QB2nQUTfL1gxcPYpZCIw AAQyR4eaYvLjrO5tzYon MVxjZjJcZnMyMFxsdHJj jAbgYRnxENYvsiNgsK50 Lvsjr6BgYXXaWTG1HGwb MFxxbFxwbGFpblxmMFxm eyN0NXMdBNasTAQaAQHd MjBcbGFuZzEwMzNcaGlj aFxmMVxkYmNoXGYxXGxv Y9dqGnGkX5NnNJKzEgVh DC7jFa9nTGEyYNSvPZmq XGYxXGZzMjBcbGFuZzEw MzNcaGljaFxmMVxkYmNo KWCkRFncZ3ejIyAhA4Lj MHLgSnVdlMJsU6ylR6Xs zDpvrxDkuOpte5dtfOTv AHmsv0ZtkzShqBepKGEr XHFsXHBsYWluXGYwXGZz ZbFcjAnccW6rVdLxEnBw WAvaNA6lLFWaC7ezeITy HIPyTXNlQ4ugWaKvrE8n aFxmMVxmczIwXHBhcn0= Diagnosis (test code = p9xnxJBkUYHmwGV2VTLy 34) GXUly9awq0WetKFxhYSc AEsrjFQxzaUphr13uFP9 vB01JD8bLIVkBlH5PDXg yaN9Ped2RYDjARUgvXMp G712y9kpw1vskfSqwDE9 RRBdPXVsG2QfHN3kFKUz pUZiQ82hjEDePRA3TDDw WHKzbVXpVTPmFRH3IUIx dDGcM5zaGTEvFI4jdotd WKebYUsyJFDotZE5IYYy rISmN4WeUDCmHWzgHCOl aqn9ArBpFe5ftRJihThj MFxwYXJkXHBsYWluXGZz QaImU2YlMU42qTFyTJAa HJVWHxLhEDzaQce6IGD2 KGHQVWAkDBLAC3MESqyn DRKVL2GsAZLntNkaT0Mi DKArtzE0DfIaOxErPaKj IdxvUIFsZ6OgBIMjxixq xQroTJujvC43IcFaO1cn biwgcmlnaHQgbWVkaWFs BWnkKkKalF1aBJPoMGR3 NEZofUF1GXWcXOstOCPX CqEVCDmbP9teYByRFoWU PYL0ZOIlOKnCUsG6KXOS V9vsMQpoYVKJGUDaDXHx UxxvI3v8m2uikzC0iQ1i KSOtR7ECAqwyfMRdSEim bFJsIBouXNA4DRploD2q DUKtEI9DBDSTG16OPDKN UaBNE0zVZStaA5HPCLLY COSZCHmkO6PDOWNDTC8O IFRZUEUgXHBhciBDTEFS SyBMRVZFTDogQVQgTEVB U8KbVWFfbJDlMLBOMNFP E9dzCImNR7bBGFFUIhQZ OENYGODHGZEyRcZrXM8l yOYwZHZJGVsFZUIdVs7B CFNQVJ8UMGdEKdjEECFF Ov4NQMlmCOdLX5G4FMBS RVNFTlRccGFyIFZFUlRJ D2ZFVEeWSE5TQatKLE9H EvzoA3DRX6KBDATQQWWZ ScBNYwVZMH4FQRIhssGN ZOEBGKwBEZHHD7NBQRHp eB6jo3KmQMRsCzojc5D7 dFWuc2MgAQdqS6uiODCk FXsCEMADHDhXRidgDe0O TEfYMA5DOLHKWNOfrOWv LLMSQ9KQX5UTK146WZ7Q VCBJREVOVElGSUVEXHBh ciBWQVNDVUxBUiBJTlZB S0aYByffBx5VBYuQMH3J SUZJRURccGFyIFBFUklO CXZUNZttQH0XFEPZZ897 BZ8LOZZWFHKNMDgYDCJU WPTqarFVLKVYS5RXH8RG NhBKAWNXOPeULO3PFSQ1 GP9DOGJWWLBMVZrYSDHK DFEeqhDMAK7RIm8YCxNW TFRSQVRJTkcgTFlNUEhP Z8tWTLW8MC7NNz4YQreW S5ueMUNoHQXML9TCSAJM GXWLOEdBOr7HAQOBDsMF HTUXAepoSr4BCKoRMQ6L SUZJRURccGFyIFBSRURP VDyEEU0WKGZWHL3SQ5yG SfDEQDcZGNBUOY5OCUco CB8BOR9TIa6KNCdhVBMi YJoOH2DQMRAKE6XZGcTM PSpVRn0BSQEWJlHXUPXV IFBSRVNFTlQgQVQgUEVS SVBIRVJBTCBFREdFUyBB FuOeMZ1FMCZPNlFwDHTI RJ3VXXUePBKHA7HRBASV VCBQRVJJUEhFUkFMIEFO IHKQCXRSTNGJY6APTXQA TNfYAo1kSOMynzOXJVUo D77gaHDxjVWbVsbqYWZ1 Comment (test code = [id number] 9860) FOArq9iev5XndGBeuBUd AChikGLkorGwry18wYN8 lB03YH4hIBFtLdP7YEKr vsZ8Xvx1OHTmLVMezSDu V127x7vcd3vwiqLzqZK5 UGGtODHoS6OgXZ7jNEVk jAMmV123BYbepRbpyOUy Xvywk4bbwCG7HQtxv7Bc ZDBcbGlzdHRlbXBsYXRl tBGcFDixiPppfS6olTTq L42dlVfltVd0KtCwRRnf bGlzdGxldmVsXGxldmVs fnXjTYauOARnuI8zK27c XGxldmVsamMwXGxldmVs o2FcwwNfvGG6UHkaxgAf aTG4vIxwILSrOaAyImt4 t8juBGYwsX53dRQsndJk EoWfZ69tdIvvXtVxBqpt MzYwfXtcbGlzdGxldmVs XGxldmVsbmZjNFxsZXZl gX1mN986UIloyhKhhnAm CYfdahUbp2TqyzPheZX9 ZLgjvaMxbMZ4xJdcFVWk JoQwErl3y1mmJKMyaN27 hGUtqsZxGpLkM58wnAtb XDniGVPjCNJ9BF21VFlk o4LnXHQmwDiwFMVciL6b NcQhiUO7UTimLrMlDmub ZXZlbGpjMlxsZXZlbHN0 ZIR8PEBid1ssZROcnHWg xPAuYxChKJrsSl89eYhx qBZ4SAsvjD2qKAJlYKfd QBr1UCmeDBlbUOzbwY5k ARQ4n5ufsMQ6dJR8YDas uGG2CNteEoVwVPnborCz rvMlzxZamEG6EUogEoZp cTT3FAarpCVtmUT5OLjt sXS6XXw5AZq9WJuvAmht MGCbD776ZLhmneQvupOl CuXxo0nhSHX7dKobgUE3 MjBcZmktMzYwfXtcbGlz dGxldmVsXGxldmVsbmZj JHgbVAOvqA2qT426JZjl hpUyvhNyYQaofoHpm2Wm jhDsqDB2NWouviCyvNJ2 uUhlOMWcOnG7Awm5e0va QZKpiV23vNEfulYeSwGn Z79viVpgFeQkXNGgBED9 YF84GAelb2OcPTWcyKbz HDDgxZ8zSbCksRM5LDqo ZmNuMlxsZXZlbGpjMlxs EONwyMY3RTY0CAHqa2ul ZXZlbHRleHRcJzAyXCcw UJ69zFfnvPD6DMnxaZ9l UUAiIOwoBUd0SMswCzh8 EBfhtK8kZGL7f7xkuCA5 oMG7TBmgfZN4PLuzJsDp XGxldmVsbmZjbjBcbGV2 PPkhFyNvbIZ2DGbxhSZd wWP0GAfmmMJ2RKj8TSi3 XNtfZkshIZOpS438GMja xjPjspKgTeVdz9abRSF3 wDakoPL5FFZsWfckQjTc fXtcbGlzdGxldmVsXGxl fyEqgsQnMHgnJBJvrV8x L314IBsadfBttjRvFJll bsIyk0AbbgYejKM0CEjg vxUwbTI4qVfmWQEvDcH9 Gzy7x4dcQFNfrX99jAJd tqTfBmJnI30fsSo3FEUj KEZhBMJ3IU19BIwbw1Yz MYTbaWzfWQVkmD5vYoXj lEA5RRzoUiWmCkqtJCLl eSnkBhxrTEStbDN4WVK8 OBLjh7cwVPBilZUteZKf BhXzOQywPA16wSnbxPL1 QYpzaQ3bABDiAVwmDNl1 ZYvjAnKhNAjpfU9lPZY0 mO17WGabuNcovL22TEFb jOJisJRdlTS6EWktaAvo oL67GZQpzVKnRCeec1Fe CDCqtJjcuS80CJZbiYIk U810sdBoTHuaTF02ODQe cGVydzEyMjQwXHBhcGVy rDI2PPGoSF9lxbykDKsk FXhzVGIflbT9FVFhiPLj J2WhFZDwCN1gbbolAQC5 NNouFTNxZAA0TdVzCBIj v8Jfaap7UeLuxSMsGJdn uED0TZlplE9xHrPmuHir MzYwXGxzMVxwbGFpblxm czIwXGNmMSBTRDIyLTA3 QLM4QbvnJ1NikYnwyuOs LGVor02abXUszTAtGZ4e HYY1pZniIWmdT52seT04 nyAtcSIbAN6rU0g5uXNi cHJvbGlmZXJhdGlvbiBj x95jrMF3YR78NQbprAbl sNDmZW6vvGEjLFJ3mYQg ZmljaWFsIHNwcmVhZGlu IuF2dUPlLfROaA48hp2m hCB8i3YiFA2iR7DdLES0 jKHsYZMuQl2zg3TgMPYu VYJ2PDPuVCUdZOOdiqNp xbphdS6rzSf9qTVtu39o QFFno12vpMVfnDKfeQum SChvq3gbrvPlTMPhuEkq YL6cBVeqwYErJZJ1HWIa ARQrENIgh8w2eRIbRYCc wxKMSAQ2IJBrPTqFWkZ3 QYGFJ1meDVhcHRBYZOT7 YMhdlXbcHX6eI7D6aJVi FXQodhRgJQTjVXG6ZeOt tfKyV9c5s6ksadV6yI9o PGRwU1BTPx9uE0AqcrFn bCwgdGhlIGZpbmRpbmdz TQPoFWTesRCuv1C1uTQv FQ1sMHSxVPCxEl18CRPw ePXmwv1erHYcKZhyRxVm cGFyXGxpMFxmaTBcbGlu AVevikQhM4MbBZAsshjl ZjAgVGhpcyBjYXNlIHdh cyBzdHVkaWVkIGFuZCBk aXNjdXNzZWQgYXQgdGhl VCRoiw2eoE7aRULht5cj U1msSnJqtDr0cCUky43c ZXJlbmNlLiAgXHBhclxw YXJ9 [employer](s) (test code f6apcTXgNJNtzST7ZUZr = 9863) WOArj3tej4HpxVBwrOYx UOffoTDixrJaoy07mVO2 jZ66DN9mEHYxKlX0UGTt vqA3Pkm1WQLlQIJbsJUa W854g5vtz4htmlSvkIQ5 WERjDTEqY6WyVW7aCKDc lZJnC88ncRJfERL7BWNa XLQoaBDoUMXnLQL9YHXz pFYuF8jeGJNyEV6sgcps VIdrGIiiXEQhrWN4NTDz wUCoB1IhBTRmSTicRNNf ztx1WdQwNq4boNFhxAdy MFxwYXJkXHBsYWluXGZz MjAgVkdQLCBKTEMsIENB JEnhUA1lMMCXPRSMQ6Qp XGNmMSAgXHBhcn0= Disclaimer (test code = [id number] 9844) ERXoFMLid7szMWKbfNRf ZzEwMzNcZnRuYmpcdWMx DJFsOpPzm8xks707bISi q0cyZLXdOrP7oWRnQAIh ySNpO727PEZwBHpfg5ec k9JsWPPnlSWyn1X0BVOR keyucNq5bZriR03uc6S1 DihiF9ahPKEnEWLkM3Er PL6uPELfQwc2PAY2QAU9 TTEzPHGvY7HkMI3sARSk jDHgRHf9v6rdgVvhDDGf UWH3a2jrPQhuuhZbYB5t nb9jrAo0s1rbjyChGWLa HEZhoSXPXEKuE6HciUll Kr0kpSg7lXykQtauXUQ7 Feb5MG0baz47zru1dZvn SQVgjmqbXnR5FEetPQIv typwVFw6NEhsIQYieJE0 DJDeqAYjZ9ZeQXOtUJ3k bib4ZBR4MRnuMVKfXcB7 NDBcaGVhZGVyeTcyMFxm e609XSR3NwHuSJ4kR5Nc m5E8rT1gzVTpCODvpBWv GmEqPVEitp4vgAJoBXio i5LnWFU7wzX6kXMhlYRy YQUcFO24Qadkc5XyUhla YXI3SAQpjhMcj8Icm5oc MuDueqTiC5fzL5NlMVBk YDPpGNRzPxHlfmRql5Dv a5BipEFjbKu9g3moSIUe BFCnyBplp9lsKWQ2PGRn R1M1nIYro9leXSjkAEXm vJD8kzO5YDYxdGPrN1Qo uD9oJSOvOY3zcsp5c9cv QXO2KDhdUCFrHbT0sdI2 NDBcaGVhZGVyeTcyMFxm j014HXF0WjLgEZNuo1Gc M3ZzlJlxC73frRayZ91a HFHvgPvrcJ2bgJutbL4a ZjBcZnMyNFxxbFxwbGFp cwdhHOylgzR2YUtzobrv OTBeAZqyZ8agHzZtGZAp rSxmOWaon5VsJGTgPERa OaqhonZ0QMDJg38kAKAg t4NxHVKbtD5vpDGwLQhf qiEflGQ6OGfzgcPoOjWq vrWxIKOknK8oNBQjXX6m XCTfwpVodm7ftrIyGNRg HFExF8CemudapUqowqGm NUHwwx9rpeUpCHY9BKBS DW9YVWTrQGFdp70pQHMc nXxcmZ6idTXkkuQjQVFy q9OwdU6enRRLJNEiX1mk LO4mDDsja0YrpKGlmWTn cSR5MJEnz8FeQeJogwCu kKUnlSTaL6UagYxhE6rs JRYsUZReauRooTWxv6Nt FCAshCQ7uLKbXT5BLzUC g68bSCYeDLNVaoIvYDOo rChgfOT1skW2dL5cEvGX ZiBhcHBsaWNhYmxlLCBj h718oz6pscC2LKNwOADy vrgxz8VbYPPgIGFceQ83 ZTUdTJGkuu0avccbgHVq aoAaF8Dtuef3pN2wCBQc YWluXGYxXGZzMjJcbGFu ZzEwMzNcaGljaFxmMVxk KdKxOMDzUCsxJ4hmFmVj ZnMyMlxwYXJ9 [facility] [facility] Interpretation 2021-12-26 22:36:41 Test Item Value Reference Range Interpretation Comments Materials Received (test d6vzfXYyMHJwrQIgNpZc code = 9973) JEVfYRWlm1wvHFZftZQe ZzEwMzNcZnRuYmpcdWMx FMMmXsXus7uqt183iOTv h7fhLPQwXbH1gFAkCNGd hOObM931XKBhMLlfu0an v6LrSKNsvLUsj1D7CJUF crsghCc3pXvrC35nj4M7 PbpiA3kkWHQbKDNdV7Dz XS1qSROwEvx8EGB2OJX4 LXExYAXfO8GtEB9jVBRm fHJbRVa1x6burHgmSFVj BIP0n0rnMPdfrkPlNB3w lz2gdWh7z6mkyqAzNWLn WAFrrQUGDMWjU2NozGza Ov7mpEx7sResUolsWMV9 Jqk0LI9bxp86syi2nIuh WHTmcnzbGyH5PBnsPVNz bifpIKm0NZjfDVHucGxc MFxtYXJncjcyMFxtYXJn cOB8ZFNbkQEhM6FfMRJb KVsbJNHtxcc9FjWbTp8q yINtkSruRQdwq6rfw4ur wFBnNxs9QNHbJrZzPejm HIvaq9Oyw5qjXPUlme8d TGR6tBQxdSiwv0H4rKSz MOAlgPVwalTfCUObib58 iEQnsCCnuNYbol4krzMw oDFynCNmDTZ0rHHvntCj XMAspMOzRBCnZY5mzIJw IAMxkJ8qempbLOEyYbRf snvpNYPcrSfpzkCtQz5i nUuiXRH4TLemI4ogkR8s XdA6IMoaM4jazV5vWDj7 ZCbyeQX1IJZbuZ6fEG5j fxdsf8glQpSfBU7qkhfo q2blNtBnQK4akdo9c8tl BYS0JZvfPKKdDqZ2frX5 NDBcaGVhZGVyeTcyMFxm q188VOH8OmNdOQZne4Vn L5BzqDndE95ysXzfD47h NGXoeWbjyL8kxWksiB5l ThHkOhPmIZu8cf13CYj7 pdgfaZlmPRt3zxVfCVAk OTL5YQRytEGaJZWvT2b2 suPaIMPxDOY3CQIlsIQw WJHuS1k5iwGuVVX4BOf0 cnBhZGRmdDNcdHJwYWRk YjBcdHJwYWRkZmIzXHRy hTDllUWmiVMjeO9nlWin FZBdpZCnsV3uWHL3EDEp cmgzMjBcdHJoZHJcbHRy eb11WBSviyHbeLTscZul hLTeROX5KMMpQDOmRHAs LAC9GJEjQkBvovOqEMsl bGJyZHJiXGJyZHJzXGJy ENX0YJUlCnWjgjFlZWaj bGJyZHJsXGJyZHJzXGJy XAK5KMQlMfNhduWoWNvx bGJyZHJyXGJyZHJzXGJy HFY7NFFcGiUjjaYaMUcc bHBhZHQxMFxjbHBhZGZ0 J8mavTNlYZAqMUeaxUHj STPaE3fksSPgNNcmCWLx cGFkZmwzXGNscGFkYjBc A9uySQWqWeCcE4LbxDm8 MDAwXGNsdmVydGFsdFxj aBMcQON2ISLySJDnFZXg PBX2FHEtWpHsdsQfUAmp bGJyZHJiXGJyZHJzXGJy MQR8WBZyJaSmijHoKDyx bGJyZHJsXGJyZHJzXGJy DLK4AOPjHxNiwmHwARmu bGJyZHJyXGJyZHJzXGJy HVR2MHAtCmGfplGnCDsq bHBhZHQxMFxjbHBhZGZ0 Y9igiLLpEXGkLZgccYLs HOQxK8vyzKPqYSmnNDOa cGFkZmwzXGNscGFkYjBc F9mlVIWzGuOgT0TfxIo8 NjAwXGNsdmVydGFsdFxj hSMbJAO9LXVnBSNwOIKl QTW9EVInEkDynkOvOIvh bGJyZHJiXGJyZHJzXGJy OSK9EKNbZbEaaqOnLKwq bGJyZHJsXGJyZHJzXGJy XPZ5QOOgGoSunsIyOXrg bGJyZHJyXGJyZHJzXGJy CFY4WDBrOaYjpsYsPRzu bHBhZHQxMFxjbHBhZGZ0 Q4xscGWeYEFqTAznvZDu KKTxN3gbtHIbGKotFSSz cGFkZmwzXGNscGFkYjBc W0zzLSYiEnCqI9ArkBf8 DcNaWCZnmeCdaM03Jecc h5FsDELaJRM2KMimKRkn bFxwbGFpblxmMVxmczIw KTwhkyhzDEBcWDalE2bo QcVkYHOkyYrbQUhwa1Vl XGYxXGNmMlxmczIwXGIg PXWiDWIgwK3zHezgS5Tl zM8dVYhiAdosT6cyIBGx p4VaaY1vWBqjuELanypk MVxmczIwXGxhbmcxMDMz YAdeD3tiNiVzZPJxtBjr NSiff0IiRQGdIHNyRizp kyYqWUo0bjBsQOUizGxp yTKnDMhijfTewYcjb6Fk dqJlxRosBLVrUGm2soSw bdqzlDd6nIPvzCsmYXMs wUshwV8gDaGkFzZxIPrk bGFpblxmMVxmczIwXGxh ldupQGFuAWomC7exZqFd ITVnoMewROmwp4FrDDXl LBNrAxgiqpItNXDpD49x bGVjdGVkXHBsYWluXGYx XGZzMjBcbGFuZzEwMzNc aGljaFxmMVxkYmNoXGYx EAmnD5leHfNiF7XbHSOn HdPbgGShR1ngE8CjaZpc YXJkXGludGJsXHNzcGFy QVF5tPPjvrNebBOzjHHa LJGrPPghKFU3iDJaszun hHGtibloBQzqfbY9SZVe YWluXGYxXGZzMjBcbGFu ZzEwMzNcaGljaFxmMVxk McJaGZYgBQcoS3urHgMg X3OoQBQiVhAtAjEVQTGs aXZlZFxwbGFpblxmMVxm czIwXGxhbmcxMDMzXGhp F1paIeIgCGUitPcrRMsb p7ChJELjXAOoDuwdobZg NPc0epNnNGWfoLwsgI18 Jeyahz60OLNnh2tzHJMm M0NkbXVuOAAmrTAiZDys MDhcdHJwYWRkZmwzXHRy cGFkZHIxMDhcdHJwYWRk ZnIzXHRycGFkZHQwXHRy yBQrBUZ8T3j9qxXcTWSj TNk9hrToCFHnFaDnfTDh JHG3GQp3RzoujbT0nNAm V1k2LtdtczCuLZvsuKVs sj56HRPpwhBfzDOhwIfb zZUoWRF8QFCmMQKlASZd VHF0ARBlKzVpmxSwPIrs bGJyZHJiXGJyZHJzXGJy OPT5LYSyCyQezgKpBTqx bGJyZHJsXGJyZHJzXGJy NWI7URUqOjGuhmWgXCtm bGJyZHJyXGJyZHJzXGJy KON0OYBlJaIqzwKdLBdy bHBhZHQxMFxjbHBhZGZ0 L0ewlDUgDOFqXXtdlCQu BMIoT1hpgAFeGOmoCBHj cGFkZmwzXGNscGFkYjBc G1hfZPPvAdVmC2QsuQx0 MDAwXGNsdmVydGFsdFxj xTOgUDA1NNNuGIPnHFOy WBL2KGYtJmKmenZyLCgp bGJyZHJiXGJyZHJzXGJy DHD8YQTqUeJepmUtGAnq bGJyZHJsXGJyZHJzXGJy SSM4HXDjUyYkrgKvELln bGJyZHJyXGJyZHJzXGJy RPB0WGUfFgTbsvGhSCny bHBhZHQxMFxjbHBhZGZ0 I1bjuTSdUONfUWmwfLZs GFCjH3cbaIPfPPziUHBm cGFkZmwzXGNscGFkYjBc O6ydSIUxZeEbA5AvcVm3 NjAwXGNsdmVydGFsdFxj tCZpKBC1YJRoMBBoZMUn TAW1TVVjBuSltaWuFBqx bGJyZHJiXGJyZHJzXGJy NXA6QAZnTeKrhxBrDKdv bGJyZHJsXGJyZHJzXGJy WXI1TZPeMdAytqVaDCvm bGJyZHJyXGJyZHJzXGJy FQV8QLKxPuFbgmVkTMyv bHBhZHQxMFxjbHBhZGZ0 P9lvuNFsUZAbHPkwnNVv YBRgN4grcXGaXLogPMJq cGFkZmwzXGNscGFkYjBc U0myWLZmPmBqG3AvjHf0 PvCtENSbxaPboN63Pdad b6TwORYhJHK9EUveLSnn bFxwbGFpblxmMFxmczI0 XHBsYWluXGYxXGZzMjBc bGFuZzEwMzNcaGljaFxm WMosShWvXBXmSMztJ2xq WhDdA1ZyAFSkYeAxEZ1h D0ZvXi7tQnHiQneeDSwq W9GiINQoVdqCV3fJAGJz CCIUF1ebpNPxbbumIQtr czIwXGxhbmcxMDMzXGhp N7rdLdSoSKUwgEubNGoq o7MiZAGaJDQhUytmlkRd DRq1zuLxTZXagZxlwDSn XMhizxOieJtgg7PawlQe dXgwXHMwXHFsXHBsYWlu WSKbUPCeIpYfkMkvdP1q GqMkKpVlMCxyRA9qTIUw H3oanKEgPUWtGEPxO6mw ToYmzM8qtUfpWMfyVzNy LaJzBKX6KrDiLsTcUlOt hVszsB0iItYhWxWjBBpn WH1qIEMgF6komJHrWXYa KAJzL8riObByrK7uiLsz MVxjZjJcZnMyMFxsdHJj rIjsUQjdNJSgunFgmF71 Uacru2SkHIUmZQI5KXai MFxxbFxwbGFpblxmMFxm ucD1EXRnQHhcETTjTJUb MjBcbGFuZzEwMzNcaGlj aFxmMVxkYmNoXGYxXGxv O3rbLfLnK1UxRWApTvMk NE5oMs8gBIKjUSZfWTau XGYxXGZzMjBcbGFuZzEw MzNcaGljaFxmMVxkYmNo QVQdUTewD4wjPrSfW3Eu APLgRkLpsOUhV6szA1Dk qGaiyhNszVfhu7wyjXHz EFpum9QkqmUzoWbpRSJi XHFsXHBsYWluXGYwXGZz FqXhnExkhK8nOzOlNaYu AQakAQ2aPMCvO7fmhUIw FILqEZXuE8rdHuUulW4x aFxmMVxmczIwXHBhcn0= Diagnosis (test code = b8wcsBKvYFVwaEO8AVMx 34) LMVmg7mgz0XpqIAlpSOx PQwnuMQusaLwzm94aUR9 gU88GG0uFMBrAvZ9JGAy eeQ8Spx8OQFkPWPbhLRr T181t1lmt0oqmnLhwVM2 FIIyABXzX1AmDK8uJIRz gRCrZ93wkZMxEMP9PVFx VUJgpYAoOGOsRTY4NBRh iHThP7alRQBhFU6wdxma EFsuBZbiQNQyfZO5QVCx wWCxW2QtULRtTVsjXOQd won7HlQaWt5xmBNdfSgc MFxwYXJkXHBsYWluXGZz NoVeQ1XdZD56pVWiXHRg CSKHSeUuKYvyUav2DCG1 GDMRSZPjSZITC5QRMkuu THVAL8MlKWBfbOgtP6Rb DEJplgT7TxRjTaRnFzSx BdcvMHUcT4BsHDJedvku mFzeKZvncD92MjBxX4ml biwgcmlnaHQgbWVkaWFs FMuiJqQwnB3lAIPxERF2 HIRnrSC5NQYbTBdwUHLA MyYRDTjgC6ghMIhXTuYB AOG6KCHeFRxYJbH5YTTT L0uyCAfqPKFHEOEmDPHj ZjhhS3e1g6lotxW7tN7d REMtQ9INUdeagFBpNOwr lHKvLJdbKEQ3VNmvsL8u DHPrNO2YSLIDK12YIOUR ZgBQY0nCRCeuO2ETUDWC IMSBDBqfS0PBMUAXTV1L IFRZUEUgXHBhciBDTEFS SyBMRVZFTDogQVQgTEVB E8RdRRGyuAMoIYXRQECR M4dwOCuWW8eVMSYGLsVI WYFVCYQJLXJeLxNuKC5z wKGcCUQEJQkBDQSoNf1W FQLJHI2EKPbJYngQUOQW Vg7LZLniXXwNM5C9FQTB RVNFTlRccGFyIFZFUlRJ Z9YSJAdCBP0ZRidAGD0M HrbrW7HVP1PNHSQBBQFR ZlCAYpJKCZ5ZMKXygbCB GIEMWPpADSZAI4TXWDIy fX2uc1JzUFOqCosrr5M5 vJKxj3YgULjqI3lzWWKo YKeESGDLLWdLHgwqYa9E HEwNQD8QMFTHPQBwcDPj XTYNE2RLO2PCI820AG0H VCBJREVOVElGSUVEXHBh ciBWQVNDVUxBUiBJTlZB O6zXEfhwWd6ZEEsYGB7H SUZJRURccGFyIFBFUklO NVERSPhpUK2ZVXMCU379 MX0XKOROYIEMHKqOSHZH EBRhodSGDRGJL6KFU2NO BbBDBDBEJWdCVE1JPAE3 QF3BIEBHPCFKOBlDOZJJ DNPfcoRPIM2XAz8PFnJP TFRSQVRJTkcgTFlNUEhP S6cFXVX1AV7KHp0MUsuO D4yqEEHnJHAPX9YRFWXL JRDMFYcSHf5SSAZTJrGJ ZLFSCjlrTi0ONJdHYL1V SUZJRURccGFyIFBSRURP GYiSUE2KQKIKWU2LK1yG CeOYJNhRYRJPWY7IFJyf IO5FCO3QKy5XFLnrCNNc RCoAE3KVTTRQD1XRJoHY NZdHBr9RPRNOUuXPILOS IFBSRVNFTlQgQVQgUEVS SVBIRVJBTCBFREdFUyBB EyDqRZ4UJKWPGaXxZFEK MI5TKLLfPJLLE9RABCIP VCBQRVJJUEhFUkFMIEFO YBOQMXQIVBKJC7JIKNUO OOuVWa6bNRDayiOLFLZz S56deSOdiVQnBnuwGCN2 Comment (test code = j9vniOJdYYNabAB0IMRi 9876) FEUyt0unb4TspTIxlXNg CZwydMCdtmTonh03mWY9 aJ04JB1jCQCrAjN7COWu lvK7Vte9OGPyYVRxmZJr D857r4dxo9ddasYxhYP4 FJLgYTPlB6XbAE4fZXEa nSUhL653LXadeJxuqBGc Zzeuv6fbyPE5CZabb1Tn ZDBcbGlzdHRlbXBsYXRl eISlOFxmvUzucF4rgAEs C24opWbnjGj5TjXjPXjo bGlzdGxldmVsXGxldmVs eoFaVLxhRYDhcM4tC94t XGxldmVsamMwXGxldmVs q7LxaqOabQV3BRyrcsYo ePK6dPdtSGBmTrMiMkj0 x7afDITzsJ19qIOeldAd CkTiF16xtBdcYaBwYmxg MzYwfXtcbGlzdGxldmVs XGxldmVsbmZjNFxsZXZl rT9nQ601YHjqrdUwhqJi AOcgqpVgd9ZywiTyuEM9 YComheGkzYA2bCcsTNRq TjBeUpz1r2fgNFPyeE35 nLBdoxOzMySwK25cbQlc OMsxAISnKJY3CT74DTxy d7HdEGPczEawHYQntJ1t KdMyvLO5NDrgBwZiVfqn ZXZlbGpjMlxsZXZlbHN0 PVP3LYZzq5klMIWuvSGv bMXhLnEkALrhIg65xSio fVC1JVkdzC0dNJZkPSdl QBj1LJxbVVtzJYjjxE2n EXR2c8redLJ5lSS7HKuv cPS2CUayDqWdJTfmenPq vrOghbGfyMO8NBxiIrHh gSK4RFpjwGFmtFP9YArc qKT6LBg8ATp7CBzlVvza HUHvI718PHusucMztrKc EdZdr3olMXT7uIudlYJ6 MjBcZmktMzYwfXtcbGlz dGxldmVsXGxldmVsbmZj XHazKIDaxY9zN735QBmz bdFewxYbLQhricPvq5Dg kyFtkQC3YIwtbpTktVT7 uVfhTOXpAuT3Fjh2y0pu LIIkpR44wUMtzxZwNuZo N56viZlbOkWhKLYgPUD8 TU08WYjgv1GhYFSziAhn ROKwdG4hLkWyhAR1ZPve ZmNuMlxsZXZlbGpjMlxs ROTlfBO0YIJ6UECla7ck ZXZlbHRleHRcJzAyXCcw SG76tUsghVR2NHrgpI2r LOLtYAkqIHv1IToiKax3 ZXeelC5yWOV6i0cdxGM7 aEU1NHbzpQJ9SGwyUrMu XGxldmVsbmZjbjBcbGV2 MPbpMoSxxLV5BPnvgFZn xPP3BHvwqPH4YYm1HGs5 HPswUffwZWJpD952RRqy cpNdctOiHjSqt1cpLFB8 wBtiaDJ1QWYqCkwoHtSo fXtcbGlzdGxldmVsXGxl itRxawFxASetCKGyhR1h C034UEiqioCrrbHfDYbg xpPos0RfdyJgnCJ6FMkk kxGyuHR4xZwoOHBgSoM4 Fql8y0xtRPZirU33xJCq amXlMuHeB20vcRt1MPPc TWScAXW0ZO05AHgwt4Nn TZZrbYcgVOEsfZ3uKsUu vHZ9FDxdEqUgMufwWSSc tFopZncgHGZoaAX2HWE5 BEVul8fyLNWsiOVkwGUp XkXxVSwuYD79pNghnPV5 PMnxlA5bPTIsJYywWFs9 OFlxUuRhDUuvcV7xMDI0 hQ85PRccbJayfP21WWVk bTNrvVNboOB0BWxrzQat kF94YUFwiISkSKslb6Xk LMOubLbbgW70TEZjkWCc R534qeDxIAdzWP96GQAs cGVydzEyMjQwXHBhcGVy jGW8XGZoBI9ozygeXWmp DFilPKVrxfH5KRJwcEBm U6GwIDDwFL7lmybpAMK8 CEgnPVSuCIR0MmGnTFLw f4Irrtw3GhDzjJQgIZgn rZP7ABfdfC2qExYlxDfr MzYwXGxzMVxwbGFpblxm czIwXGNmMSBTRDIyLTA3 XOT8FwpcW2KhuMeqquDw SFPra08nuHYcxSAvJA2u ZWF8lEeqISupR27skV27 ddFcwYCmEC4zQ0i2wMPi cHJvbGlmZXJhdGlvbiBj s77zhNE5MA51RYjjoFwh oLAoTV8izOWlFUA0pUUo ZmljaWFsIHNwcmVhZGlu ZdC9kYOoAbYJfR26zj9l xYB6z4CjTY6pY6OfTPK6 gDVwKYFzPb6od1YcWWYa ZUX3QOXoKPEsLFKhjsFd ofeimM3knJd4wCMnw58t NYDvf97mwGGnoHAesWms WCprm6luhxZwIHJahFzj FL6kQHyjiBZsJYT0FBEx KGSlWFLga5v2bLGbZTQd ytVNNNU5QGQjXIqGPvD2 RBIES7exVKiwCDDAFRN0 VYuuyCdnBQ4kB3F6iPBh IXSmcfObNKLfDHM1JqLc hjOuV5g5v8xawyU5cF0r XFNvH4QHCe0lF8ZmkwTv bCwgdGhlIGZpbmRpbmdz NCPbKERiqALof1S8jMUl GR2ySFCxDHTnPv18HVVr pRTxrq2bzGOdRNyvIiHy cGFyXGxpMFxmaTBcbGlu RCqndiEpF1BoUAOcbtvj ZjAgVGhpcyBjYXNlIHdh cyBzdHVkaWVkIGFuZCBk aXNjdXNzZWQgYXQgdGhl LZFdhh7yhD1cNJAak4nu I7xoDjJrlSp0oVNjz67l ZXJlbmNlLiAgXHBhclxw YXJ9 [employer](s) (test code f0cqlYYcAGXkiLD6YFGh = 9821) UCYoq0yih8QaaQJoaJMz IShxmZGhumHkiq93sVU0 uO94KM9uGQYpEiL1FTMx pnE6Eza6FIKeWLMpsABi E493y7xyi3zkhrOgmIY4 MCFiOVYtI5WtDC0aJXKl uYVsC85olTAaXNN6RVOc TSPtaQNmVYGvZGM6MUZx cQKyY9zzRAGmGW9bucwv QJbyQFuwTQOgkCZ8YIBh nUWkR2ZbXEBzIVttEWZx ydx4MjPqRs0zhFOkcZde MFxwYXJkXHBsYWluXGZz MjAgVkdQLCBKTEMsIENB NTqfUF3uOLNBQPIFR6Zi XGNmMSAgXHBhcn0= Disclaimer (test code = z2ijqYIlHIEwkTSiSdZf 9844) YGFyADLac5byXLTkcOSe ZzEwMzNcZnRuYmpcdWMx DVOkUtJwk5ews522wNFu x9lhACIgLnH2eRLzLEEx gTVqY578SCZzDMbns9fe c4FwCCYhmXKsc3Y9LROA bwlfpXj4tAofC10tx0Z2 DupjK2xhLMBkNRAaS9Xu PI5uCIEgAvc5WLU5CLU4 VSDvBIBtB4NnYD5fCNNl pZQrWWy2w5ojvKtmWUIc GMD4n6oeZLrqklWdBW5g kt1kaTr7r4xhbaFoKMYo JQPkuMXVPIVeT4TqiLhq Rb9cwOz7dThsIuwqQLU6 Yyb8FK7enn56ivz7bYou MBJdubykJzP1ZWmmXHTc prriZDc0JKlmWPDecXY6 CSCidIYnV1LyDUMfZS6s zvy0UDG7UMhoWIPmIqC9 NDBcaGVhZGVyeTcyMFxm q468OQW2LiAsAR0qN0Ts d8P8mI1coVUkUVXjpGNb KnSeXMNleg6vrZIyUGil y1IxCDF2fjN1hNEriWYd JRNkYQ57Xcrhi1QlQvlr SLZ3WTFwgcUkt6Rrk5di YxUeklZwV5aqF0UfBEYv MUCmSUSkWkXxmnSuz8Yg z8IvaEXtmJh0u9ahUYPs VZMouYpkp3wcJOR4FLEb L8Q0cGGxf6piSCnuCDVd bBQ7mlI8CTDyeZJuN2Wi dS6tQXTyOW3kngh7u8ul ODK7BYvsFSNjWxS2zdY1 NDBcaGVhZGVyeTcyMFxm x670ULR8MpBpCEUhw5Io S8SkaSckS89svIdnH16g RRIitGwchG6lnIcqoI4p ZjBcZnMyNFxxbFxwbGFp uctxUIjcxzN2GXtwbsug NNMnKDhkP9gkBpPwVPWq uWykFVqfu9XvIXUzKJVv EucnduX5PDPJl10wOCFi v4YeROVonE1dlWBbDKnj dwBrlLL0XJjpsxWeEuFq qdDuUKZuaJ1cGDZrKM3w ASDuhyMlgh2ezyYvOVAn SPIfK8IeungpkWurxvJe DFNbkw3svjAuPEP7WALX FQ9WXWZyFDLan11kVHPq dNyllW0epAWrbmOkNHXs t2ZxgD6ecMYCCZNcR7dq VV0pCQntc0JojDNytXYj sTV3TVZul3AmUaBlyvDx oWWctGImV5GuvBaxM7au WTAeBPMoniJqdTFek5Mm HQZhlJN5aUTnZV3DQyJA s49jWUWdLAHRvtNbJIWl pUkyjFW4qrO9iB0eKfSW ZiBhcHBsaWNhYmxlLCBj j440zx8iqnW4YQErIPXm quesu0QvNFHrOAVfiJ96 PJSpXHZspf6gtapssUVp biZwK6Ifoyr3rV3hZCSz YWluXGYxXGZzMjJcbGFu ZzEwMzNcaGljaFxmMVxk BcDrJKLvWKwjH7hbBrKc ZnMyMlxwYXJ9 [facility] Interpretation 2021-12-26 22:36:41 Test Item Value Reference Range Interpretation Comments Materials Received (test x9sobMYrEUEaoRDpAvJg code = 9973) CHXzNPGcf6yrDJPdzFTe ZzEwMzNcZnRuYmpcdWMx OLDuLrJzj8uim408mVSy n2gwGGQtZdI4eWLgYWSc kMLnW031KZVdZSwvc8wu b0GuSKCzzCTxh2T1LBBK yiodaFh5uAhpN57vu6L0 RdkpO6eeXWPfQYMhH9Tp IG9pGOPxLex1NJL2AVJ1 DXZfWYPzC7QaSU7pOZWi bPBzBPh5q8fvdQilANDx VUW6u2dyBUdmdxIrXD7e ag5vyLh3h4gyvmEeHOAg QEAbuMJWESIzD3DnzFlg Xf8udIn6mHonWlmgYZR9 Ofo9VA2xuz47nce3aXsx AVRcietpNwK9BWpdWKUn lcocPTy9YVrmQREfqGvf MFxtYXJncjcyMFxtYXJn cGL6WJYzeHPwR4KuXWVy NJjnFCPmcfl9AlIxAa3f lKMmsLfkSLyoe6fjo7ur mYMgMwf7JGYzZzZcHovr BGqwj3Doq0mvDTRgnc1z WTM0bRWzlLecr8J6uIAe FMSeeISbznZqUJWxvb67 zGHceSNzmYYmne7oztAc dKHngQVjRTB1bPFpswBd TINyyVOtQRMyUI4xaINr HSUhwJ8avjctGZIcOoWd yymwGMJukGzvtsFsMe5g tIndOJI2ICmuW1rmeS3f KbX3THynK1yhmN2uMVd1 AVzuoKJ4QUUwiT0cTU6t zkigc1qyAoXaRT1ocssn l0auHrUgJR6kfti0u3kj KIA2KKozAJHvYlC6clX8 NDBcaGVhZGVyeTcyMFxm m446GHD8FrJhOGDmj9Do M0XzrXhyG83lyRspO30y VZYnxCrfkU9bcDgwnV2w HgLvTzSzGCt7uf06XDy3 stptlUcvIEn7imTyGAMt EXW4BMEdbCNiRTBnF2d7 eeJwJOKbZNT5CASleXSu NECfM5a5siJpIBM1AAw0 cnBhZGRmdDNcdHJwYWRk YjBcdHJwYWRkZmIzXHRy pYZsfFAlpSYtdU0lmQfi HIWosSAeiC8hWWC5GPQp cmgzMjBcdHJoZHJcbHRy ry82MMGfxnZpiNIvaEml yGNaZXC2MZCsBNJuHOTz XFA5OBZlScEgrnTjEGwx bGJyZHJiXGJyZHJzXGJy ZKF6IUEyInHfmyYqZIrw bGJyZHJsXGJyZHJzXGJy XMY1PTFfPkKqlkQrLCmm bGJyZHJyXGJyZHJzXGJy GXE7ZJNiWgHzeiScTSru bHBhZHQxMFxjbHBhZGZ0 A1uumEWlFZBoSZwvkCPi PSVzO9eqxPGpVQkuYHKo cGFkZmwzXGNscGFkYjBc T6djMIIzGfXyI9OibJd0 MDAwXGNsdmVydGFsdFxj pTIxABL1ZOWzCFFnKPLq CAW2ZKZcIiOvmiMoPXvw bGJyZHJiXGJyZHJzXGJy LFR0BCFnWeAjgfDjVXod bGJyZHJsXGJyZHJzXGJy OUH1VACeYpMlimMjVTnn bGJyZHJyXGJyZHJzXGJy PMG4XKKoMdVlkaYpKTfp bHBhZHQxMFxjbHBhZGZ0 N7naxXDvGKYzTBiuvLLf ECZyB0floSNaLIxpVWTn cGFkZmwzXGNscGFkYjBc U8otEAUnDzNcA0ZbePl7 NjAwXGNsdmVydGFsdFxj pEEcVTS2FHWzHEBtFUMy FZW8GZPzThYcaxOtDKyg bGJyZHJiXGJyZHJzXGJy SWK1PSLyWxIyblIjZXin bGJyZHJsXGJyZHJzXGJy ZYR6QQHdLoIagvYmNGig bGJyZHJyXGJyZHJzXGJy QZX3ICJtWmBuulAnXXyg bHBhZHQxMFxjbHBhZGZ0 O7qhpARhOUNdIGhimEPp AFUcG3logBLaYDpjZKBw cGFkZmwzXGNscGFkYjBc H3sdCRZcSbNvE9ZkaVh1 AwClBRBqgeHiqH29Ztbg m9ZxRVQdYPC8VXdxVYhh bFxwbGFpblxmMVxmczIw HQkmbjbjTTHjRJlxR5yc GhNkNGUouXnfPCdzc6Wu XGYxXGNmMlxmczIwXGIg DRNwZDWrtN7eWhhaQ7Hg hU1pVRczAomzH9krZEXk b1CdlO2eRYlbnLYbugnj MVxmczIwXGxhbmcxMDMz CJieS7boVwTyMHIvaMip HFcxk1IpUVLsNNDuReyg jcVhEVf9xrMeGSKikHdj cCQsEYlhufBwhTxea8Th pkIzlKcuNZSoUTk3yzMu aovjjMv2iCKvtDniBAHu nDadxK9bNiQgBbFuCRgb bGFpblxmMVxmczIwXGxh mcumMMOeVNsdD9aqEiYt ZFPntQzxSGfrq4CrGDCh JHCqGylwxrHrQCTlT50k bGVjdGVkXHBsYWluXGYx XGZzMjBcbGFuZzEwMzNc aGljaFxmMVxkYmNoXGYx WOyyD8uuSyLqR6ZsGGSo ViWzzRDuT2aoQ7NclIss YXJkXGludGJsXHNzcGFy XDM8oWYrqxPjlVPlzFYn BMOeORkrRGA9bSLvgpdl sAJaqtliPXhvrjB2IWNs YWluXGYxXGZzMjBcbGFu ZzEwMzNcaGljaFxmMVxk DtIbJTJgPVqcK9vlLuEe U3UoBXEjTqRtYyGUKSTf aXZlZFxwbGFpblxmMVxm czIwXGxhbmcxMDMzXGhp G5esBsRkJDMicHajOFuv x5WpZYMxLKTxMoayirFl NMq4cuSiRZBnwUxnxI93 Igtszw49SWGag6feCPYg Q1QbsPMoQODhkSScRMrt MDhcdHJwYWRkZmwzXHRy cGFkZHIxMDhcdHJwYWRk ZnIzXHRycGFkZHQwXHRy xUVjWBK5E4t9hnAoVWCo IDb9llNhIOAsJsEylYYp MDS8VDu2HqkhrvD3nQOs E5e0IbxwnmDpRLpysMSp hw86QGLfkiSluIUbrYro tYNvTHA1FGBrHKVhIEFj LIV8WYNbMtRrmbFjVBoe bGJyZHJiXGJyZHJzXGJy GYO0XGPvKfCgxcXmXXds bGJyZHJsXGJyZHJzXGJy HHJ6EPNtDgBkhnYbJQkw bGJyZHJyXGJyZHJzXGJy CBU4ADNjWjYzktFeWPun bHBhZHQxMFxjbHBhZGZ0 X3hbmNRjUJKyQYribWAu DCZnU2kbzZRuFEqfHGMo cGFkZmwzXGNscGFkYjBc G8zzPNDbQbFbS2DvwPy6 MDAwXGNsdmVydGFsdFxj lEEuCDF3DDMaVTMuXETy WPO7OUWxVsZuzlRjDHvs bGJyZHJiXGJyZHJzXGJy ERJ9UUMeKvTwkwXiEPez bGJyZHJsXGJyZHJzXGJy NGI4DYLdOrAnxdQbMHrl bGJyZHJyXGJyZHJzXGJy LDC2LLXiVhAgrsAiOSrx bHBhZHQxMFxjbHBhZGZ0 S8jluRMdXYBuKQdpnHMa XUPyF7tbaSPaKAvwPRAe cGFkZmwzXGNscGFkYjBc M8veGYBoQmEkD2GkiFp4 NjAwXGNsdmVydGFsdFxj vTEoLUC6XBGaXOAhRIOw RWI5EGQlTzSjlrZwLByn bGJyZHJiXGJyZHJzXGJy GTY9BBYdPmFiadQzZLiz bGJyZHJsXGJyZHJzXGJy TFQ0FZTaBwVwliTzMClx bGJyZHJyXGJyZHJzXGJy ZTF7OCAjQzQugvDhDCnh bHBhZHQxMFxjbHBhZGZ0 I3ryzYTuRHQiDCxsoGOu LKLoQ1aujGQyLTroCCJd cGFkZmwzXGNscGFkYjBc B1qlFFVdWhRcS5XloVe6 KgSeCMInavYykV92Uncv r6BkQPPvKVE0HNgyOYab bFxwbGFpblxmMFxmczI0 XHBsYWluXGYxXGZzMjBc bGFuZzEwMzNcaGljaFxm KKixToWkZHOyZVzeM1xi NdUiY9XnNJGnPvXnEU9e K5ExIp4qFjLzHdnrHPsc T5LzSLJrTkxUZ2sCPWEy SOFLL3uisIWeofqcPYvm czIwXGxhbmcxMDMzXGhp N9ayLgBmWGMbbGudOYah h9ZpEKWeXARoJmiphjYo KTh7zzGiEQXitWggnXHy DOyojvWwpGbpl4SrkvXo dXgwXHMwXHFsXHBsYWlu OYHrCSQjMlGfkBmprE8a EmPjYyTjRPzoIC6wJJTd C1pypMQdGKYeOTWfT0np OqBzxH7irCskCWorGtQf NdJaXRC9TkIhSyYlMaDb nWggrW4rNgUuZbByEBwm AQ6cYWTnI8ifeCRsWLSf QVJaC5tbKnVgcO4pnDja MVxjZjJcZnMyMFxsdHJj hAgvABclXMAugeAaoY85 Dztzg1FyYNNqXLJ6ZXqw MFxxbFxwbGFpblxmMFxm lkU0NINgQSxtCDXiTLKf MjBcbGFuZzEwMzNcaGlj aFxmMVxkYmNoXGYxXGxv J1oiWvMjV6UvOERlPlCh ZD1jYr7qOHEvNYTvCPyo XGYxXGZzMjBcbGFuZzEw MzNcaGljaFxmMVxkYmNo JXSiPPzsB4yxKhNdA0Ol KODbBcPmgPYcR9fhM8Vu cQjganYewNmfr5lcaMOv JAudh6LxorZdbDkbLRSh XHFsXHBsYWluXGYwXGZz OdDmlLyeyA3pPiIsVoMu YHccCZ1lXQWlU1czzFTl RGKsSUHsN3ipSbHvqW4e aFxmMVxmczIwXHBhcn0= Diagnosis (test code = z3laxXMeCALpqMH1BIYn 34) DSRcp4osk7PlcHWpdLFj IFuypXVgrsZovr08tTW4 mG71HU0dVDJbPaD3INRm jaR4Sns1KJMaHYTlrSDl E378j6icl5xbbqPciLQ9 FRXgJAJyN2GgDB7vNWQa sECzM83gxTGsHMJ9CEVb VPRivPReKFOuSRE3WSCi eTJwA0lnBBOtCI0hhfeg TPejCLafGIFnrWG3WMCv kNVdX6IfBVNvUIdvFUTf wtj5BuOqUq6jqRMzyMuu MFxwYXJkXHBsYWluXGZz BgSmF2DmUV18mQIpIHHy LNMCSlWiPNqzHkw4UHR7 XEOMMUKcRCQJU6YVJicz TDJJU9KkCFYseQypC2Du QVIvmoH4JlJhRzVnOpSi PqohXCAoT2BnCXPugwbv vFwhTGtkdO46QbEnX1jp biwgcmlnaHQgbWVkaWFs XRdvBjUnwR1hIUNoVOV5 LGSldSA8FEFuKKwpYHAY PgJPOWrsV1quVXwFMxTT RSD4PLQzJHeDDjH6VPXK N8ihXLfaMDYHUHZuKHWv MpniK6t9s5rpyfD3oI7t WCSjP3LSImomxZYgZAma oMKzICxzKYI3EXtucF8a NRVxSN7YDDQVO24FSQNH IkRWH2jXYXywY9QAGKAL YZBHMGrdE9RSTRMZOW6M IFRZUEUgXHBhciBDTEFS SyBMRVZFTDogQVQgTEVB I8MfPSUweITpBABHAKFH J2zcFPrUA1tOPXRNVlTA OXQFFBFYBCZgCiHzUO5t zBNcJDCCRNrZMFQnBt7T VWNJUA3YLRbKBhzHUGGE Qs5WSXqaHVpCW6M3IYCJ RVNFTlRccGFyIFZFUlRJ S3WAAAtQBN8MPkoKYX2H LaugK9NUZ6JCSUKJYMKX BnWBSiXIRY4ALXHumrSM DPFWXAzDOHCJW2EBVPWw gH9zl1SgKJMiSegja6M5 aGMpr6LhZUxnH5wfQNYs NKoQSZHHTRaJDgklGu3A BFoVGK2CLXPLHKBrbDKh TLREY9FTW5ALZ816RY1D VCBJREVOVElGSUVEXHBh ciBWQVNDVUxBUiBJTlZB D1aFEylxKa6PUQlSTQ4T SUZJRURccGFyIFBFUklO TRUNIBajTW4RWPBIO661 LP7YYIHYWRBRSOdEKQYJ NSZgyvTIABTWT5YCD7PS UhRMPMQJCCcJUW0UEJM1 OQ6WDIGWFZJDIYlJQPEF EVThzdHTXM2MOc6MTsKQ TFRSQVRJTkcgTFlNUEhP P4pLGTL3AA5JKn2TGcyH R8mwMKArMQQVU0WUGIAU VHCSQTgMZn7OAORGEdXU HSOPFavsYn0GHZjMHI5J SUZJRURccGFyIFBSRURP QEzZFR4GQGEWDS9XR2lQ DaFVOXcTMEECLI1EJWjp ST8IDQ9DMs1UMHbcYYUn NFhIQ4WDGNHXD0ROHbNC MQpNDg7NZUAQEyAHJDKZ IFBSRVNFTlQgQVQgUEVS SVBIRVJBTCBFREdFUyBB CpLgSO8EBAEPCuCmLACL TM2SMPXmBIVXY2HSBWXO VCBQRVJJUEhFUkFMIEFO IEJKTVXITMYIC6HJVJPH YOdDTy3rDSApgfREETFb K66tiSCkxQZfNaqpBTA1 Comment (test code = t9brxRSxOZJzvPJ2TDUj 9835) GXWns3tdn8KssIChkBDn YQcwmCYnscWsde70lQK5 hQ55AN9eBZFsAwQ1JIYc iqL6Btj5PYAgBRMqnCJp X568b3clp1fyepSllCH0 NUDhUKHaM0KpWR0hHWDj ySPwY771XWetqSyjoPBc Dgnbh5waqAE6PYcgw0Gg ZDBcbGlzdHRlbXBsYXRl hSOyVOlxnPhwuC0xwQUo M98tkMpcuRs1OgPqALdj bGlzdGxldmVsXGxldmVs yzKgYGyzNXHioD0sY06u XGxldmVsamMwXGxldmVs e3WksdZesBQ7CGezmnOj gNZ4mHfgXIDfIaIwNcd8 o6cbWDHjzA75zGHymoHg EaSkF76weSknUtVuOohw MzYwfXtcbGlzdGxldmVs XGxldmVsbmZjNFxsZXZl jK9dV565QValpvHsrmOm XCpuqwAdr2HktpSppII2 VJwcqkLmhYG3rAfnNJNt HyAqPhp0h2wnHAIjxZ19 bKAowtDlWeIaC74auNur ZAmlJAZlKTG0XS16ZToq i4LyEWXdhGscTQGepJ2n CxFodBJ7AMjuKeIhYpit ZXZlbGpjMlxsZXZlbHN0 FYK5GOTxq4dlFWJupHLx rICtMeQxVVbpJu27kHlt aPG7HYolsO1gOFXyPNmy FCt2XHnbTBigPCsbuU0n FEM9q7qlbOS9jEE6OEqy cTT0XQptHhYjCGviroTw bwSjofYejOZ7WQypDbXx bNN7IIslwTSuvRT6SGax mJW3GBg2GSw7TCoeLuvc JZZlF035MDjqwtRpbnLo BnFua6ccXWA0sHpuzSK3 MjBcZmktMzYwfXtcbGlz dGxldmVsXGxldmVsbmZj ZFblANVxvA8bI329WKdf wnQaeeUcFWailiTcu7Ix awVmoAV7BPzconHpqDE3 hFpgBZDeEwG1Tro6c9wm MMBalL50eEGoleOfYoJz T71gwAetJlFyPPNwWDT0 AI52OIaaw9YeSMLhjEwx OKPnfK4nTuVvrAQ2HMae ZmNuMlxsZXZlbGpjMlxs YXRxwIZ1MZU9ZTAtj8iw ZXZlbHRleHRcJzAyXCcw AM96mGrytTG5GZrzsG8w TZZePJiwJXl1FZjwYrx0 KAftgK5gOSO8f1jsxBX7 vQX9SVnerMY3HAxiPcUs XGxldmVsbmZjbjBcbGV2 QKxiWfPymKB0UYivqMQm bGB6QCuldQT3QJa4QXp3 OTmrJmuiLBPvZ638WJyr rgYajfBlWyIow6jtFFI6 sEuvbHK4DTLiIapjUyEw fXtcbGlzdGxldmVsXGxl xhBphgEbIGkuAUZqeJ5a P624REfmrpKsplOyWHhc fuYht6SebsTytPP1ZNyt xfArbOB8pKqwOKBuGaI7 Ttp9r0umXPWiwV04xJOb fwJiWrVtE29qaYd0WNTb VFLsATQ4DX07LScay4Bp KJYacXfwJMTgpP7jOpLq eBY5YUuqNqDnVugqPNBg yUhvBgbbDWVcsXJ9YCK9 DPMdj9rkITHckFLcgAPk RzRzVNfuLN95fLpgdNB1 REemfX0kIGYvIUxgBSj9 ODuxWqDtHWtmcS2kFJW6 hF04YAhyqEipyN29PZGt nMXrdUKudMJ0OVjiaRdz sS67QBGnvNSaJMvcq0Vi AKLwwUhyiP20LZNxsYVe U217ahOsICtoTZ99CLMv cGVydzEyMjQwXHBhcGVy qIV6RZLqWG3zhmotUYag ZWqiRSVrksW1BGFdpVGc U7DsGSQuNL9hegulLIV6 VWgzGGJhSGH4EzVfPTLl d1Bqwbh9WnAanSSuPOjo jKK9LLhpgA5jQuFgyMdp MzYwXGxzMVxwbGFpblxm czIwXGNmMSBTRDIyLTA3 SRH2ScwzR9QdqYdrgsDz HFQem55jyKMulLElAU0p MPV5vPtvZEmoG56agG59 xnNxrRKaWC5nB1j1gJCk cHJvbGlmZXJhdGlvbiBj y62abQZ8LE18RXrquYoq pNDaZJ9qfXJyQSP9iYTa ZmljaWFsIHNwcmVhZGlu FcG2qGAzDdMJnN38nz5e pSV1p8OoPE2rO9JiIJT7 gDOaVBDxPm8mi2ImBFIk PMW2FIArDRPeISUuqqHi zvskyR1wxFt7sTHrg32k ZHRrm89djPHeoECdaVzg ELpyz0vakiZbKUShbYqf LY1zTPofgZEbXCJ4EFDe JPWeHQQdo8l2lZEyGWNw kcPYPZZ6DFNtVUgZWfX9 IJRQY9xsVYfyDXTLPIS9 WBofdAbyCO6cF5X7lNKu TFVqnyVgZPXkAYZ5IuAq ggPoT4y5u5thysP5iF2b DGTsE9IDQs2pF5JldbSl bCwgdGhlIGZpbmRpbmdz JAXdSPEfsHOtn8X2jXQu ZK0wFUSoCXEjRy92FDUg nRKsog3cxVKyQQmaPfYa cGFyXGxpMFxmaTBcbGlu LRtehjAdY7OtCSKxlhab ZjAgVGhpcyBjYXNlIHdh cyBzdHVkaWVkIGFuZCBk aXNjdXNzZWQgYXQgdGhl LXZuap9trT2bSTGtd4qc J4vkDdGwdAl6mZKcj85g ZXJlbmNlLiAgXHBhclxw YXJ9 [employer](s) (test code u6xdrNEeYQUgySC7ZPYs = 9863) AXAtw4hzy7FsmUCaqVUw RCvcuBGjuvWowh82aRG8 qY48HP5hEMLdDxG1UDOj ivQ8Jhv5RUWkRCHlfJNz L009r0awa3ucaoLilFL2 WMCcWPBiW2LoFA5rRHKk kYHcG26gdIInJGX4SAVm KDBwuIGeCSTbRZC6TLIl cEYhD6xyAWKcJM3pidwf HQnlEIviILXgqYA6EVMz xNJcX5CfIHIeHUywXBWw oyg9ObPzWo1mrXSnaCsb MFxwYXJkXHBsYWluXGZz MjAgVkdQLCBKTEMsIENB LObtYT8cWYJEMRBKA2Xb XGNmMSAgXHBhcn0= Disclaimer (test code = g2rzqHJdYUArfZUsVfMm 9844) PEReUNCfa2moRUHjjJMl ZzEwMzNcZnRuYmpcdWMx SUJsEkKer0uwa063dFOv m5afAXMjTwE7iUKiLTVi wVQzA284JTJaNHdwm0vb a5JpZECldXIlc9J5ZPFQ hvpbwTb1hXdoU08xa5F9 SeklK3gvEKXxTZHeM5Xd XI2eXDOdRpu1RUN4AZL6 URUfSYIvA0VfOK0fFSLc bFRgMDc3e9ukhJltPGVf UQB4b9qsGEjudxSlJX1b xd0fvDs0r1hdvcBxZZBa BJKbuPTTKVDnL6DxjYaf Kz3vvBk1cRpyJrnsICX5 Ctg0EC3aak46qxd1mUlk THRcbxehHiG0FCebMXSt itueZXt8RAczAZAfnXE1 IBHdlKIcZ2RkAFRbZP6c dyf2UGV3YFzzYFUbMrR9 NDBcaGVhZGVyeTcyMFxm t895FKX7NbYjCK8tN6Ig v5R3dJ5piSBzOYKezEVu LuCxTXKujl4ndCBvDZem i7SwPWE9ibF7bGYbyKBr JGDaPR07Tpkxs9FlLfan ZLS1GPWumiGuu1Nix1fx XmTyclGxY1alD6PxJZSr CXWmWOVbEgAafbFhs1Ir x5PgnNDwpBa2y6kfZOMa PURfnYnzo6jjPLF8ZBFd T7P4rWWed6ecIHxkKSCs xGT6vhF5YNCgpFOlG3Vk fP0qQUWjIW2zxmj4t3hg LQW3OTtiJLEdKuP0jyO6 NDBcaGVhZGVyeTcyMFxm m501YDF2LrFdYPTug0Ef G3VxlNlqZ25tzQqxF52s VZFxrLodpQ8nfOyilA8s ZjBcZnMyNFxxbFxwbGFp krmaAMcbajL3PDzpddxs RWIsCTklW3xkQhOyAMRe gHffANtaq8ExQANtPKRc AikswsQ7YTUHe87uFSBx t0CeSDHvvW5mpGPoIRyk jqHkcPQ8DDzlalCbHbQi czEyVLEmhN0kVBRuUI6f DEHbeoKxmk6zqgTeRNWw EDWeZ3QsiogayZgdhkOh YOCbxz7gulFjPAF3FMWH WT1QHBUvYBHdq73eJINn eWylcZ9ytDJfaqCaDGOe y2TvcW1fuMWFXPJeJ1iw MJ6lRJojn6OjvWEjjBDf xPQ1NTLnu9GhJaXdjxUa oUBdlITxZ4CcbMidG6lk SCLkMGGlkxTrbCXzu3Fl GLMamDW5jILhFO7ZUqZE q66uUMZmYWUJgaEjJKNg bGpttQX6pmP0aK2rViLD ZiBhcHBsaWNhYmxlLCBj q508hb9hqbD8YUIuZZMq ycvxv1KiUEXyPXLruY27 ZEWrTBNatt3swyiqnULv qxRvG9Lknxi0qC6tCIVs YWluXGYxXGZzMjJcbGFu ZzEwMzNcaGljaFxmMVxk QlPoYOMxOUwqU3ulAyNy ZnMyMlxwYXJ9 [facility] Interpretation 2021-12-26 22:36:41 Test Item Value Reference Range Interpretation Comments Materials Received (test j1umsZVtIAHpwJZoXxVp code = 9973) GVAdONGyj2tgMCAygEPk ZzEwMzNcZnRuYmpcdWMx JWXfBoGyp5iyw818fKQd j9roBWAgNvC2vTMsCFFc sIKlX003HEDjWBzeb4gi p4LyULBaoRPkc5X3PWQO jarydTy9bErcI21sk0A1 LjsaT5scVWLhLYLdR8Sh IJ5eHKFpIut9IFC6COA7 DNFcPENrK4HvIS8rCRGz cRCrHEw1d9fuqFweWJIv DRU7d6hpZJmoggWrVH5p pw2ieOb0w8gkekOiRUVp ZDOrxZWNVDTeD5UonMvd Bu2wgRf5lMkgFfskSFV5 Iba3UL5iio11zej3zDet UFMwbgjsJuU2JHhwBZJz ormgKVt1CJllKPXhlNqd MFxtYXJncjcyMFxtYXJn yJP3LRHpeBVeJ7EnDTFr KHbsKNCanad3AcMfNq6k jLVphOofRGxes8dzx6cs gOHxFjk8BOGnSoBbSzkd AXuse2Eeu4jdFOJgbz3m YEL7kKLnhJgml1F0jKSx TJFnpOGmbrFvKJMusy05 pUXigUDfhESvjp8zpkCy cDCktABnTJO7nUZfyuEa AUMpzYPaQUIaRP5ciTIm SYIudD6xuwurJAZwTsKw vpwgMVYrtMtrnkWhKg2q gHyfRXA1ACtyI2gjdR7n OiI9OAqxT2iukC8dWVv9 BNrlmFH6AVBlwV0lCT3s sqjrb3foXiXqMF2nzrlz s7htFoHgXF9gbvd6o5lq KYD6SSdsFGGxBfJ0xjA6 NDBcaGVhZGVyeTcyMFxm m063GDU3LvDbIDPis5Zv I8IslSjtG38tuGxrN47v IPJxjAlkeG5wrEogiD1n MsSgJzRdXPf8nw45PPr2 pesfuXzjBWh8rjEjNENy UCB2VEHqnLGfMJJoY5v2 ixJyHFYlLZX7YKGejKMx RPLvI7j3cmCiWED6WHw5 cnBhZGRmdDNcdHJwYWRk YjBcdHJwYWRkZmIzXHRy pZUlqVGhtGEalZ5sfNbw ZOGrdHRhzZ2mGKT5QPTb cmgzMjBcdHJoZHJcbHRy mr07RRBcxpJnsFTfbBvr rLKcQQY7DGCyOBYbKJTk FGT7MVBkYhOqlnOiRDiw bGJyZHJiXGJyZHJzXGJy IRX6KQBwPtUkcwGgIWie bGJyZHJsXGJyZHJzXGJy FPX6KQXzLgJbsiAbOJfp bGJyZHJyXGJyZHJzXGJy FJU5UUOgGhUndpWwFAxc bHBhZHQxMFxjbHBhZGZ0 E3atfWNiHMWvOGdeaJAn AOEeE2gvgEIxPGyuYSJx cGFkZmwzXGNscGFkYjBc X5kcSEVqTsZqJ2IixNh2 MDAwXGNsdmVydGFsdFxj gTMoMOZ5ZOEwQOGlLNOn FCA0FSMgTqYloaEbBKlk bGJyZHJiXGJyZHJzXGJy LNV7LTEyJgWzquQlOKlf bGJyZHJsXGJyZHJzXGJy WLD6YZPzPoLdvzHiQUaq bGJyZHJyXGJyZHJzXGJy EAA2EYVpXnFhopQqXCbj bHBhZHQxMFxjbHBhZGZ0 L6pocOSvIYOlGRaysYNj BEKpD4nshASuZNtaLGEl cGFkZmwzXGNscGFkYjBc U1bmEANfQeVbD7EdeSv2 NjAwXGNsdmVydGFsdFxj yPAbRAH7KZDtBLCwHNSx GGN5JFYqZbEtzrEdZUzv bGJyZHJiXGJyZHJzXGJy CNW0XFQqKpVyzrXnWNhc bGJyZHJsXGJyZHJzXGJy LCO1BXExFkMbtqXpORan bGJyZHJyXGJyZHJzXGJy ZIH2TOKfEqIvgjLaZQeo bHBhZHQxMFxjbHBhZGZ0 E9fyhBXrQHPzHCofdRSm WLLcQ9aqfILqOGrwUDYs cGFkZmwzXGNscGFkYjBc Y3brHNBiXiUiI5PjgFt5 UsMaAJMhldJjcS45Logg m5GjNNHoJYU5LDfgCTaz bFxwbGFpblxmMVxmczIw AQlsmkcdKLFhFCgwX1ec UfYiOBCkyNiiYSdhh3Qe XGYxXGNmMlxmczIwXGIg IWBaDQMccV5uIfjbV3Td rN0kTXqiViglZ5oaXMTy d3IqhA7lLLvavIAsxkhe MVxmczIwXGxhbmcxMDMz EUtrD7azVnUuQGVkhJpf SBwlx3JbPZHtAXNrOsgx uiXnEQs4ffFeOHGdcYnq mZBfISweoaJohWlst2Ct xnFwfWlmTTQsWOf9gpXd uzwmkPx6eFBggOvrGAHq bEajcH5wZrQsDdAkPNnk bGFpblxmMVxmczIwXGxh qgziFZWdTVfmJ6nsMnDx XSMuvGtsJIpcl9LhGGEt MUIdGwzetzLaCWHsG16h bGVjdGVkXHBsYWluXGYx XGZzMjBcbGFuZzEwMzNc aGljaFxmMVxkYmNoXGYx HUieG4fnBsMzR8JiRJHd LjLhnNJxE3erC1XubBzp YXJkXGludGJsXHNzcGFy YST6uAPdoeXoaMKwjTGz XPLaQPdcYAQ6dSIpfoak zDGlvnrdSVycwtQ0OFXk YWluXGYxXGZzMjBcbGFu ZzEwMzNcaGljaFxmMVxk GxLmFFHmWHeiX8niIsVf K9UyRWAdFdYrBiQILOBv aXZlZFxwbGFpblxmMVxm czIwXGxhbmcxMDMzXGhp N6soMzMvEEBpmYgkQMgp l5TvUEXwSCZzHnrgurGo GVz7haAyFVBexKbneZ15 Zhkuoi84JZQfp6jwYFDn J9BawXTmZRIuaWBmPCch MDhcdHJwYWRkZmwzXHRy cGFkZHIxMDhcdHJwYWRk ZnIzXHRycGFkZHQwXHRy hIQmOVV8X1d7unGqZQPx JOs6vsQwPZCtQoRzsMGa UXQ9AGe3EvxvyhO4mYCq U7c2DufkjhBpDMddgFMu qi45BVOozcObbYLyyQtp fNMeNWE0PEUcEJQiJWFp ZXK7ETAaXzRiubJhKNxr bGJyZHJiXGJyZHJzXGJy TAX4YCNyLpVfliGcGUjg bGJyZHJsXGJyZHJzXGJy QPN6RKQmZzZarfDaYFvr bGJyZHJyXGJyZHJzXGJy PII0PCMhCcYxplWvFGhq bHBhZHQxMFxjbHBhZGZ0 S6ytaAXwYMAaTAkzpELp DYBmN4idcAAkXJkxCOBq cGFkZmwzXGNscGFkYjBc L8clTDKhEoDqE4IguKb7 MDAwXGNsdmVydGFsdFxj aDTeNMA1EEEzUAKdZBBf ZAW0GYKzJuPalrFrLXlk bGJyZHJiXGJyZHJzXGJy ECI6MONmUlSknyKlHOhp bGJyZHJsXGJyZHJzXGJy ZRN0YSEwPhDgwzNxDRjs bGJyZHJyXGJyZHJzXGJy PJY8RDMlEkCaxxVqFQud bHBhZHQxMFxjbHBhZGZ0 R8ssoPLgZNNyDQilcQAz HJKbK2tvjVQjPSubULYc cGFkZmwzXGNscGFkYjBc X0itGRElByAqA3TavYp9 NjAwXGNsdmVydGFsdFxj eGYtZOM9ZKJcZJNgPZVu DXW4LUSzNxTriqFmFRgs bGJyZHJiXGJyZHJzXGJy WYH1NIMaFtCvlcPiVZmp bGJyZHJsXGJyZHJzXGJy IHR4AIBiGqXryfRvXLfe bGJyZHJyXGJyZHJzXGJy QYD9LMDgAiHlfuJrGBcz bHBhZHQxMFxjbHBhZGZ0 A2lgyTYgJOBbIPodrJKw FZUoK7mcpZLySGucEBWe cGFkZmwzXGNscGFkYjBc L0xwSNYtEjMjL0EzuQc8 EyRvTTYizyNugS36Cixg q9CgRRUhSKR2HFjuHBre bFxwbGFpblxmMFxmczI0 XHBsYWluXGYxXGZzMjBc bGFuZzEwMzNcaGljaFxm BWfoJzBqUHUcBIuuY4aa FhUyA5ZdWFZkFuUaWR2u U1TlPh3rRiMzNitaPHpk A9UqZHAwWflDG4dKZHQq WWGWU5tuxOHtmjwlKOuq czIwXGxhbmcxMDMzXGhp D2tzQnZgLGYrqYqqZVhy z6QrBGUnNVRlSvwcwcIl IHd9nvHkDPQkfPxdjHLt MLbzfkCeiYrkr3QdvlUl dXgwXHMwXHFsXHBsYWlu TISoEMIeVnQpuJezcE8a ZiIvZzQyWPevDN7jKGNj B7vqkQBmUDHoSJLkX0ds LwVawH6nyKdrKPeuTjWy ZcCyLAT1EzMkCsNaBoHf oQwiqO7eBnZqUdSxTRgo UJ7kJDJzR7cuzTSpNENt EYUvA7wwKaBdtS8avDlx MVxjZjJcZnMyMFxsdHJj mRmoFUtiNMTppfEgkK26 Doupk9IcAVEqVHW4MLhs MFxxbFxwbGFpblxmMFxm ngS4KLOgPDixLIAqKFHf MjBcbGFuZzEwMzNcaGlj aFxmMVxkYmNoXGYxXGxv J1ogBcLbK2VvAOMfCqPa PW7lCl6yNOLfWRZbVJux XGYxXGZzMjBcbGFuZzEw MzNcaGljaFxmMVxkYmNo ETFnOKpqF3coXqPtV0Ug ZOMaYlMdaFMpO7muF9Xo aMofonHemEjbg9egiUUs VCohv5NrdcQnvZixKBZj XHFsXHBsYWluXGYwXGZz LkCgtJoikV6sKfHvFoOr IWppOF5hZXZsR4nsdXKp HYOgHPJiM5ieChUjpT2p aFxmMVxmczIwXHBhcn0= Diagnosis (test code = c3djzKLhUGYwdVB6YLTj 34) DIOfj8wkv0EblSOcyGKf CQvlmPOawfCpim42hIQ5 wE93RE2eUEFzZwI3IPXq hiU9Wii4OXGoHYSmfTRv B398d6wpz8zlssDqyXO5 GLNtBSMkG6UfEB4xBYJv cHBdX73yxHJyOXV8THBm IWTkdKRdRNEmRGQ0MOAe cAKmM7tyTXMsZO8pelsn FOxvMEngYTUaxJO8JUKg bDGcR7IbRJKmZGvoTPYb eoc6OyEtDz5ouFVmyWkh MFxwYXJkXHBsYWluXGZz BiWwV4ZuET78uQMnTFAx XMNXHaTxFAwnPod4JOU0 DNVQRVMoUHPXJ0DOXpdj JKRNV8HqQDHeaJuzO3Nm LAEnvzW2OiKuRxCpPcVl JtgyWKPtZ6TxJVEbvzqn mNczVLjnbX61OeMiW2ih biwgcmlnaHQgbWVkaWFs JUnvGcHcxP1tTSTwDPG6 ZECkvQU8NBCkMCwgHADW UlMMMZoyT6zoCAnEOvQN MNF0UREsZSxFIuI0MKRR S1ksXVrtQPADGBAnYNKa YsjmN1h9w9gabdA7gL3o MYWwJ4DZAwryeYRtIZew nITbJDfpDBC1AZflnG3w RLEhGA2QUNQPV36YRYXA GkMDP5oJYErwD8YPPAGH MQODDBviT7TXJKAJNA0K IFRZUEUgXHBhciBDTEFS SyBMRVZFTDogQVQgTEVB C5SkQHPijVEgIQXPIVFR W8uzHBvCD6iCRAVIFyMB CIQVITGDGYRlBzQtZO9k uGVyUVQAILnNQBLyTb4E JKJWBN5BVBdACrgBGXLP Hp1BJUhnJWiFA3R7PYVP RVNFTlRccGFyIFZFUlRJ Q1LNTUuDHB8CYrwEUU7R NklgJ4MVR5TVFFBXFIPT RwVYGbAQHU3PIOCqtwJX IGVKGFbGEMNWZ4JLSOJh eN0zw4SiSSEkUghcw4M0 jQJdb7JvQKtoY4gnLKWi EXeFUVKUCXsDZaljTr9D SWqZPD4QEOEJLGTkaPOm AMWGH0ULG4AYE275ZI3V VCBJREVOVElGSUVEXHBh ciBWQVNDVUxBUiBJTlZB O1mAGkerNg9XWNpVQO8H SUZJRURccGFyIFBFUklO OIOIAHmdOU4EOQZQR925 XR9BESGXZEPQNFnFYRQO AJWnqaVDDUNEU9LFR5EI LgTBLOYHYTyGQM7FWGP2 KM8QNHAEWAAQAItEMYNM CQAlaiUYKQ7GYc3OMiHM TFRSQVRJTkcgTFlNUEhP C9gVYXC1KT2KRm5YUwwX X6iyOYTwUGQXB5DAVJZT EDFBCOmHWh8YMZYKXgPV JXURCuimFg9HRYwNAI7Z SUZJRURccGFyIFBSRURP BPtZJL0MJTCOWT3AG3nV MzIQSGfPSIJRXW3ALBrv QK6MTC6XMh2VKZdvBXYd XTcZM7RTUZFDB4TPShNQ XHtYEq3VURMRJfORAZJZ IFBSRVNFTlQgQVQgUEVS SVBIRVJBTCBFREdFUyBB WkPbHI9SMFVGXjJiZPHI LO1YSAFoCBHZL4DAFQAD VCBQRVJJUEhFUkFMIEFO STSVQOURQRCLS5LOHGYJ RSoETv4zGDXuwzIEHCOz D80trYUkbNJiIguyJNQ8 Comment (test code = n3ddiUMcZWWzfJW8XOPm 9844) YZRrn6fuj0LtjCKxtQDz YZgmdTFpiyHpgj45sFX7 jE74KX0hHCXrUvF8BHLy qdV4Ypa5NXRpHCSlmEBr M378k3oei1idocAsiMC3 QDExMMWoE7ClSY7kTEDh rBTqD474RUavaAljzVCq Qifsh8rjgEM3FGafg0At ZDBcbGlzdHRlbXBsYXRl qLYlOZqwtZunqR8hsNUx U14nlNiodZt6AkCqXLhd bGlzdGxldmVsXGxldmVs ztVgDZegYSIhuJ6zC61x XGxldmVsamMwXGxldmVs g4TtpiCibNW4SUfjytTb eTR2dJriPUTrZtNrYoo9 r2vbELWdhR60bYPzpkTe MoWeM39jzZejYvCtKbah MzYwfXtcbGlzdGxldmVs XGxldmVsbmZjNFxsZXZl lO0lO311UAdbafNgiiSp LHfbwgMpe2SheuTcuQB1 IIzmqrTihNL3dSjnSVRf DeLwRxc8s4ukKRLxjI90 nZQtjnGaSiVlH74swJls GYmzCFFxSQF2GK84SZpc q9TmSBHydCtgBFVwyG1d AhYjoAF6DFgyMzHpDxcj ZXZlbGpjMlxsZXZlbHN0 NXO7GKVbd2yiFMNsjXKf uSUfZkAbEWhwNs65zLit aSB0EErnoL1mATSzOTjt UWc0FIcgUTkuNEhgiO2s SOI0b2kwmXK8eRR4POsd sTY3HOpoRaTvQGpxwrEm mbFvqpElyHU1ESxyAbNx uXT7JZpbrALupZD7FDmg mLP3DYt0KJw3FSwsNbzt VOEzT077BZvifiHorjTv PyYse1exCFB1kQbebTV4 MjBcZmktMzYwfXtcbGlz dGxldmVsXGxldmVsbmZj EPvfNKUcvN3wQ716VIjw mxKmxnFmPRgndcAmx4Ik maFypJM0JRmasfDvcQY6 pNqbEFCtZiZ9Vdm7t0tx FMYewY26gPKbpaVqDrHj T62wyLvvTbOfPJRlLOY8 BK64DQkgp4LlUKIgwMtq BRTvbQ7hJqNzbAK9ELiy ZmNuMlxsZXZlbGpjMlxs LBHgqFW4KAX9XTEoy0ed ZXZlbHRleHRcJzAyXCcw YW13uRlmjOZ3VAzyqS8x DVRrBZmpNYh3ZOnuRwc4 CXnloK0hHES0b7tzcDP0 uGG6WFkdxOB6MQoaDsLa XGxldmVsbmZjbjBcbGV2 KItyTeAwoQE8SNonqFFh cMQ3NTjgsKP3HNm1RKx1 KCmkWtsuHRTeE019JCwh wqZancZpXhCjb4bwKWX8 pLvspRE3GHBeUarpJjIf fXtcbGlzdGxldmVsXGxl njQwzaKrVEngZXHofW1y D140BNauvqXhagNmLNbv dkZli3FpxhRjpXQ1QLxp cvWkrTT1vIdxXRCqRcC2 Rrz5p5zyWDUeuJ40tVAm xsVoAjMnM40iyZh6XBIl GBSeGCW8OU35XUvnr1Wq YTXvsXxjFQSbtQ4nGnQp fJY4TJxqExAqLaurPAHs tSbkBxgiBRNgxYG7LEJ0 PSCre7rfWDJqwMBraGGt PnFkCLaeHE93zLrzfKO6 ZYwmmW8pCQJqLBorTBv4 ZAdzYyZjQPkvhP5hSWP1 cI99PFfsdEiluY14UCHp mIStzCDbkKV0QKkhwMaa xB48BGCftTGlRIond1Dj NYJrwYfdyB95RREnfNKy J615hfIhIXimPW46LAEt cGVydzEyMjQwXHBhcGVy xBG8WMUmGD7kbrumOXsq TScyTKOsseC0DYYloQKf V4BpTFSpIE4cuopgAZH9 RSngQTFjAUX8BwLxWJLa k6Aesps4KdXxtVBoGJvc hTF6WVzdeP8lSeGoaItr MzYwXGxzMVxwbGFpblxm czIwXGNmMSBTRDIyLTA3 SPA3CoqxQ3JlzSxgoyHz CQYbe11bpWZcyCSbGL1b QWI1qAjrMKzhY28vuL50 dyLjcOOyJD8eG4n9hIWw cHJvbGlmZXJhdGlvbiBj u70lkRU2EQ75KNosvTtg fSUnST0jhUJiYGM8zIXm ZmljaWFsIHNwcmVhZGlu TiS4rWQmTqYUqP86zz7v dNK8k6SwCO8iD3CvNPZ0 iWKcCSZwUu8me2RpJQOe RNR7JGSfTQZcPJLctjBe vckggY8ykOk0vUCpz37u ZTNde01dsGQbnKIgtYxm DErli0nadoQbWCZfaMji IW1fSRzvjVZmSWJ9HIHt LRFfFXVaj1h9lBAnWXSh exFIPZQ7VKJiKBrYLaN8 TFWZK2qbDMxcFBEXPQW7 HFvanZduVO5hP7T4eWYc XITvtzJzGZZmLQW5XgZk wjAtW3b7y5labnD5zM7u LJFrO2PLBb0qC0CnqeDf bCwgdGhlIGZpbmRpbmdz MZGyDMMmqLEwp4N7cFWd NR9wDKAkJPLvFu83FHLl fOUysg5gdZPsUYgyHbMw cGFyXGxpMFxmaTBcbGlu GHwfqvOzD7YcMSQezqyu ZjAgVGhpcyBjYXNlIHdh cyBzdHVkaWVkIGFuZCBk aXNjdXNzZWQgYXQgdGhl MSGvpr1qgX1dHEBdm2zt K6znEaLfaLk1uRYby51s ZXJlbmNlLiAgXHBhclxw YXJ9 [employer](s) (test code b5cmeFKrVPOodFL2CBFf = 9863) BSHui6hvt4UxzXLubVNy MIuqsCPrgmDvys92rQM8 eI67VO9rDVLhVgQ5LXUb xiW1Bkj8XQYrWWGjjHPa S706e9jcq7ujdhZcmJM8 DJQiQOSiB3SuIM7lJJYj aDXbN42ojNKiHIC9CVJt EVIfdIHaWIJkTSO3SULi aMZzI3akAEZzSB0dcsgr VZfsUZpwOCDiyUH3MXTr xJVsS9LgCJZrCZeeHUYj ved9FgLuIq8cwKNcuAuj MFxwYXJkXHBsYWluXGZz MjAgVkdQLCBKTEMsIENB OBjqBM8sEPVAYMUNC0Pp XGNmMSAgXHBhcn0= Disclaimer (test code = [id number] 9844) IUMdGIJdx1ixFMNrsXDu ZzEwMzNcZnRuYmpcdWMx BPVfXeNnc6ima316iZHu o8heJDBtDaC6nOCyDFLr rJMlO922SONtZGcij5ke a5NfMANyeGHzp4X7FWMJ mlfujFz3jIqlM44df6S4 NnxpG2rgTAIlGULvS0Od PD4tFDNxMfe0QVR9XOR1 XZKyOKCuS8YyZB7wAOUv mQBeUYu1e2fxbBohMRTu EQB6t4wvPWekpyCkEG7h bm1vkUt9v7pjapXwWNVu GWWzgUGMIXJyP8AplDiy Zn0tlFh5bIsaNankTCU1 Cns5MV9urx57okd8eKuu EMUppqvlGgI7NLvsHCHi samgEFq5ITbcOFLmoTQ4 HISuoDQcO4PuSXBbYJ1x qye8MXP6TZuqOAFuOkN2 NDBcaGVhZGVyeTcyMFxm r616AAZ4HlLbQC7oO7Bj t3Y3cB6umYTgNAYttLHq FoXoEOHjfy8rnVKoGLlv f4EcBHO5roM1vWHgrIIq TSLxOA49Icjfq0PgBqfd BEK0CGAfyhCzw6Bdc9xu OqWmrwRjB5foQ1ImKCRa HPXyYNOgNxLczyTvs7Py f0WhxKVlpJr1e5xbISYn XIIlcPksa2ayXDQ2LECo R3M1kRXhi0ecJZycHTJu iDQ0leX8ZFPkpKVxH7Kr hV5gCPZmSB7fbps7y8py PKJ2BImuSYMmLfC8nhZ1 NDBcaGVhZGVyeTcyMFxm p567ZRI0AvWfHVKvm3La Q5PbeGptV63swBorV45p UGHleTkmkX1awBpvuO8w ZjBcZnMyNFxxbFxwbGFp sodpJKrzevL8OOwuossf QRDmVBweR3qcYcUqGKIt pAqrHKucp3UpWHUsMMNh HnfgkwH8DHGCe42nHCGe h9QlFIQrbE2pbJUgYTmo foLfcPB1AMnxfqMhZnYw maXoDDFbeU3zBIAvYE0o WACitlCwfz9ktsYdGPIi VNJiL1FjumgulEyssfFm JRYham0mveMnGSA4GLPU PA8SQUFiSJDjl02oTTWo bIhdhY1xsVFrogFoMZJu h3ArkL1hbFMSQZLgG0qq HT4fSIazw8NojUFfwFEh nMU3KOIgz8FoCkHiynZa uIWraBOvZ6UlcXtmC7te POFsVLIhvsDkcXDoq3Ky DWXmqHE1uLDbFB7GXeTZ h03qUEBfNBGDduHaAJEi lTaskBP5qsR1vM7sXeBI ZiBhcHBsaWNhYmxlLCBj w527lt4vxtV7QSNaYCOy pakza7WcZKMoRBPzaU06 BGHfABXkro5nszdolSEh ijXiR1Kekoh2dN3kUFDj YWluXGYxXGZzMjJcbGFu ZzEwMzNcaGljaFxmMVxk XcUbYGQvJEtqR8jaPbDr ZnMyMlxwYXJ9 [facility] K[facility]EE <3 VW [id number] 19:41:01Right knee narrowed medial joint intervalLeft knee bone on bone osteoarthritisUnAsc[facility]
[2022-12-08 00:04] LABS: Absolute Lymphocytes (CBC) 2.4 K/uL (0.7-4.9)
[2022-12-08 00:05] LABS: Protime INR 0.91
[2022-12-08 00:16] LABS: Hematocrit 45.5 % (39.6-49.0); Lymphocytes % 28.4 % (15.3-44.8); MCV 88.2 fL (80-100); MPV 8.5 fL (7.6-11.3); RBC Red Blood Cell Count 5.16 M/uL (4.33-5.43)
[2022-12-08 00:19] LABS: ALT/SGPT 35 U/L (16-61); AST/SGOT 24 U/L (15-37); Albumin 3.8 g/dL (3.4-5.0); Alkaline Phosphatase 63 U/L (45-117); BUN Blood Urea Nitrogen 18 mg/dL (7-18); Bicarbonate 27 mEq/L (21-32); Bilirubin Total 0.3 mg/dL (0.2-1.0); Glomerular Filtration Rate 66 ml/min (=/>90); Glucose Level 121 mg/dL (74-106); NT PRO-BNP 145 pg/mL (<125); Potassium 4.1 mEq/L (3.5-5.1); Protein, Total 7.6 g/dL (6.4-8.2); Sodium Level 136 mEq/L (136-145); Troponin High Sensitivity 11.5 pg/mL (<58.9)
[2022-12-08 00:23] LABS: Bilirubin Direct < 0.1 mg/dL (0-0.2)
[2022-12-08] MEDS ORDERED: HEPARIN 5000 UNIT/ML 1 ML VIAL ONE (01:04)
[2022-12-08] MEDS ORDERED: HEPARIN/D5W 25,000 UNIT/500 ML BAG IV ONE (01:05)
[2022-12-08] MEDS ORDERED: ASPIRIN 81 MG CHEWABLE TABLET ONE (01:05)
--- NOTE | 2022-12-08 01:31 | ER ---
Nurse's Notes [facility] Name: Sara Corbin Age: 72 yrs Sex: Male : 1950 Arrival Date: 12/07/2022 Time: 22:25 Bed 2 Private MD: Diagnosis: Left homonymous hemianopsia, acute CVA, out of tPA window , high-grade stenosis right MCA artery, Presentation: 12/07 22:44 Chief complaint: Patient states: left arm numbness and facial numbness x 2 days kl shuffling gait noticed this morning pt now reports difficulty completing tasks. Coronavirus screen: Vaccine status: Patient reports receiving the 2nd dose of the covid vaccine. Ebola Screen: Patient negative for fever greater than or equal to 101.5 degrees Fahrenheit, and additional compatible Ebola Virus Disease symptoms. Initial Sepsis Screen: Does the patient meet any 2 criteria? No. Patient's initial sepsis screen is negative. Does the patient have a suspected source of infection? No. Patient's initial sepsis screen is negative. Risk Assessment: Do you want to hurt yourself or someone else? Patient reports no desire to harm self or others. Onset of symptoms was December 05, 2022. 22:44 Method Of Arrival: Ambulatory 22:44 Acuity: [place] 3 kl Triage Assessment: 22:48 Headache History: Denies prior headaches. General: Appears in no apparent distress. kl comfortable, Behavior is calm, cooperative. Pain: Denies pain. Neuro: Level of Consciousness is awake, alert, obeys commands, Oriented to person, place, time, situation, Speech is normal, Facial symmetry appears normal. Historical: - Allergies: 22:48 No Known Allergies; kl - Home Meds: 22:48 None [Active]; kl - PMHx: 22:48 None; kl - PSHx: 22:48 None; kl - Immunization history:: Adult Immunizations up to date. - Social history:: Patient/guardian denies using alcohol, street drugs, IV drugs, caffeine, over the counter diet medications, tobacco products. - Family history:: not pertinent. Screenin/30 01:24 [facility] ED Fall Risk Assessment (Adult) History of falling in the last 3 months, jb4 including since admission No falls in past 3 months (0 pts) Confusion or Disorientation No (0 pts) Score/Fall Risk Level 0 - 2 = Low Risk Oriented to surroundings. Abuse screen: Denies threats or abuse. Nutritional screening: No deficits noted. Tuberculosis screening: No symptoms or risk factors identified. Assessment: 12/07 23:00 VAN Scoring: Arm Drift: Patients demonstrates NO arm weakness. Patient is VAN Negative. jb4 General: Appears in no apparent distress. comfortable, Behavior is calm, cooperative, appropriate for age. Pain: Denies pain. Neuro: Level of Consciousness is awake, alert, obeys commands, Oriented to person, place, time, situation, Wound Nurse are equal bilaterally Moves all extremities. Full function Numbness in face and left arm. Cardiovascular: Patient's skin is warm and dry. Respiratory: Airway is patent Respiratory effort is even, unlabored, Respiratory pattern is regular, symmetrical. GI: No signs and/or symptoms were reported involving the gastrointestinal system. : No signs and/or symptoms were reported regarding the genitourinary system. EENT: No signs and/or symptoms were reported regarding the EENT system. Derm: Skin is intact, Skin is pink, warm \T\ dry. Musculoskeletal: Circulation, motion, and sensation intact. Range of motion: intact in all extremities. 12/08 00:00 Reassessment: Patient appears in no apparent distress at this time. Patient and/or jb4 family updated on plan of care and expected duration. Pain level reassessed. Patient is alert, oriented x 3, equal unlabored respirations, skin warm/dry/pink. 01:24 Reassessment: Patient appears in no apparent distress at this time. Patient and/or jb4 family updated on plan of care and expected duration. Pain level reassessed. Patient is alert, oriented x 3, equal unlabored respirations, skin warm/dry/pink. 02:30 Reassessment: Patient appears in no apparent distress at this time. Patient and/or jb4 family updated on plan of care and expected duration. Pain level reassessed. Patient is alert, oriented x 3, equal unlabored respirations, skin warm/dry/pink. 03:08 Reassessment: Patient appears in no apparent distress at this time. Patient and/or jb4 family updated on plan of care and expected duration. Pain level reassessed. Patient is alert, oriented x 3, equal unlabored respirations, skin warm/dry/pink. Vital Signs: 12/07 22:44 BP 174 / 94; Pulse 63; Resp 18; Temp 98(O); Pulse Ox 100% on R/A; Height 6 ft. 0 in. ; kl 23:50 BP 162 / 104; Pulse 66; Resp 19; Pulse Ox 99% ; jb4 12/08 00:49 Weight 117.3 kg; jb4 01:15 BP 134 / 98; Pulse 70; Resp 12; Pulse Ox 99% on R/A; jb4 02:45 BP 170 / 103; Pulse 64; Resp 14; Pulse Ox 99% on R/A; jb4 00:49 Body Mass Index 35.07 (117.30 kg, 182.88 cm) jb4 Jorje Coma Score: 12/07 22:58 Eye Response: spontaneous(4). Motor Response: obeys commands(6). Verbal Response: sp4 oriented(5). Total: 15. NIH Stroke Scale Scores: 22:58 NIHSS Score: 2 sp4 ED Course: 22:30 Patient arrived in ED. jj6 22:36 Gurjit Bray MD is Attending Physician. sp4 22:48 Triage completed. kl 23:00 No provider procedures requiring assistance completed. Patient transferred, IV remains jb4 in place. 23:00 Patient has correct armband on for positive identification. Bed in low position. Call jb4 light in reach. Side rails up X 1. Client placed on continuous cardiac and pulse oximetry monitoring. NIBP monitoring applied. table assembler on. 23:10 XRAY Chest (1 view) In Process Unspecified. EDMS 23:33 Basic Metabolic Panel Sent. as7 23:33 CBC with Diff Sent. as7 23:33 LFT's Sent. as7 23:34 NT PRO-BNP Sent. as7 23:34 PT-INR Sent. as7 23:34 Troponin HS Sent. as7 23:34 Inserted saline lock: 20 gauge in right antecubital area, using aseptic technique. as7 Blood collected. 23:57 CT Head Brain wo Cont In Process Unspecified. EDMS 23:57 CT Head Angio In Process Unspecified. EDMS 23:57 CT Neck Angio In Process Unspecified. EDMS 12/08 01:07 Initiated transfer to [facility], spoke with Windy. 01:24 Aakash Tapia, RN is Primary Nurse. jb4 02:32 Pt accepted for transfer by Dr. Stewart \T\ 0142 per Windy Adames. wm Administered Medications: 01:21 Drug: Aspirin PO 81 mg Route: PO; jb4 01:21 Drug: HEParin IV 4000 units {Co-Signature: pf1 (Mague irizarry RN).} Route: IV; Rate: jb4 bolus; Site: right antecubital; 01:22 Drug: Heparin ([place] Drip) - (D5W IV 500 ml, [place] [address] units) 12 units/kg/hr jb4 {Co-Signature: pf1 (Mague irizarry RN).} Route: IV; Rate: calculated rate; Site: right antecubital; Medication: 03:21 VIS not applicable for this client. jb4 Outcome: 01:31 ER care complete, transfer ordered by . sp4 03:23 Transferred by ground EMS to [facility], Transfer form completed. jb4 X-rays sent w/ patient. 03:23 Condition: stable 03:23 Discharge instructions given to patient, family, Instructed on the need for transfer, Demonstrated understanding of instructions. 03:23 Patient left the ED. jb4 NIH Stroke Scale - NIH Stroke Score Date: 12/07/2022 Time: 22:58 Total Score = 2 10. Dysarthria (speech clarity - read or repeat words) - 0(Normal) 11. Extinction and Inattention (visual/tactile/auditory/spatial/personal) - 0(No abnormality) 1a. Level of Consciousness (LOC) - 0(Alert) 1b. Level of Consciousness (LOC) (Month \T\ Age) - 0(Both) 1c. LOC Commands (Open \T\ Closes Eyes/Betting Clerk) - 0(Both) 2. Best Gaze (Lateral Gaze Paresis) - 0(Normal) 3. Visual Field Loss - 2(Complete hemianopia) 4. Facial Palsy - 0(Normal) 5a. Left Arm: Motor (10-second hold) - 0(No drift) 5b. Right Arm: Motor (10-second hold) - 0(No drift) 6a. Left Leg: Motor (5-second hold - always test supine) - 0(No drift) 6b. Right Leg: Motor (5-second hold - always test supine) - 0(No drift) 7. Limb Ataxia (finger/nose \T\ heel/[place] - test with eyes open) - 0(Absent) 8. Sensory Loss (pinprick arms/legs/face) - 0(Normal) 9. Best Language: Aphasia (description/naming/reading) - 0(No aphasia) Initials: sp4 Signatures: Dispatcher [employer] Belinda Narayanan RN RN Aakash Perales RN RN jb4 Janene Conner Jennifer 6 Kala Tolbert 7 Gurjit Bray MD MD sp4 Mague irizarry RN pf1 Corrections: (The following items were deleted from the chart) 03:21 04 23:00 Neuro: Level of Consciousness is awake, alert, obeys commands, jb4 Oriented to person, place, time, situation, jb4
--- NOTE | 2022-12-08 01:31 | EDPHYS ---
Physician Documentation [facility] Name: Sara Corbin Age: 72 yrs Sex: Male : 1950 Arrival Date: 12/07/2022 Time: 22:25 Bed 2 Private MD: ED Physician Gurjit Bray HPI: 12/07 22:36 This 72 yrs old Male presents to ER via Unassigned with complaints of sp4 Numbness Of Arm, Numbness Of Face, Numbness Of Lips, High Blood Pressure, Headache. 22:58 72-year-old male presents with complaint of left hand numbness tingling onset yesterday sp4 evening, also difficulty concentrating starting this morning and lastly patient has developed right facial numbness starting at 9 PM today. Patient denied any weakness, but reports some difficulty with balance at home. Patient reports she still has trouble concentrating, and cannot seem to operate his keyboard at home at his computer. Patient was able to walk into the emergency room . Historical: - Allergies: 22:48 No Known Allergies; kl - Home Meds: 22:48 None [Active]; kl - PMHx: 22:48 None; kl - PSHx: 22:48 None; kl - Immunization history:: Adult Immunizations up to date. - Social history:: Patient/guardian denies using alcohol, street drugs, IV drugs, caffeine, over the counter diet medications, tobacco products. - Family history:: not pertinent. ROS: 22:58 Constitutional: Negative for fever, chills, and weight loss, reports right facial sp4 numbness, left arm tingling, difficulty with concentration. 22:58 Eyes: Negative for injury, pain, redness, and discharge, ENT: Negative for injury, pain, and discharge, Neck: Negative for injury, pain, and swelling, Cardiovascular: Negative for chest pain, palpitations, and edema, Respiratory: Negative for shortness of breath, cough, wheezing, and pleuritic chest pain, Abdomen/GI: Negative for abdominal pain, nausea, vomiting, diarrhea, and constipation, Back: Negative for injury and pain, : Negative for injury, bleeding, discharge, and swelling, MS/Extremity: Negative for injury and deformity, Skin: Negative for injury, rash, and discoloration, Neuro: Negative for headache, weakness, and seizure, positive right facial numbness, left arm tingling, difficulty concentration Psych: Negative for depression, anxiety, Allergy/Immunology: Negative for hives, rash, and allergies Endocrine: Negative for neck swelling, polydipsia, polyuria, polyphagia, and weight changes Hematologic/Lymphatic: Negative for swollen nodes, abnormal bleeding, and unusual bruising Exam: 22:58 Constitutional: This is a well developed, well nourished patient who is awake, alert, sp4 and in no acute distress. Head/Face: Normocephalic, atraumatic. Eyes: Pupils equal round and reactive to light, extra-ocular motions intact. Lids and lashes normal. Conjunctiva and sclera are not injected. Cornea within normal limits. Periorbital areas with no swelling, redness, or edema. There is left visual field cut consistent with a left lateral hemianopic deficit ENT: Nares patent. No nasal discharge, no septal abnormalities noted. Tympanic membranes are normal and external auditory canals are clear. Oropharynx with no redness, swelling, or masses, exudates, or evidence of obstruction, uvula midline. Mucous membranes moist. Neck: Trachea midline, no thyromegaly or masses palpated, and no cervical lymphadenopathy. Supple, full range of motion without nuchal rigidity, or vertebral point tenderness. No Meningismus. Chest/axilla: Normal chest wall appearance and motion. Nontender with no deformity. No lesions are appreciated. Cardiovascular: Regular rate and rhythm with a normal S1 and S2. No gallops, murmurs, or rubs. Normal PMI, no JVD. No pulse deficits. Respiratory: Lungs have equal breath sounds bilaterally, clear to auscultation and percussion. No rales, rhonchi or wheezes noted. No increased work of breathing, no retractions or nasal flaring. Abdomen/GI: Soft, non-tender, with normal bowel sounds. No distension or tympany. No guarding or rebound. No evidence of tenderness throughout. Back: No spinal tenderness. No costovertebral tenderness. Skin: Warm, dry with normal turgor. Normal color with no rashes, no lesions, and no evidence of cellulitis. MS/ Extremity: Pulses equal, no cyanosis. Neurovascular intact. Full, normal range of motion. Neuro: Awake and alert, GCS 15, oriented to person, place, time, and situation. Cranial nerves II-XII grossly intact. Motor strength 5/5 in all extremities. Sensory grossly intact. Psych: Awake, alert, with orientation to person, place and time. Behavior, mood, and affect are within normal limits 12/08 01:25 ECG was reviewed by the Attending Physician. EKG time 2317, sinus rhythm at the rate of sp4 63, no ST elevation or depression, no ectopy. Overall normal EKG Vital Signs: 12/07 22:44 BP 174 / 94; Pulse 63; Resp 18; Temp 98(O); Pulse Ox 100% on R/A; Height 6 ft. 0 in. ; kl 23:50 BP 162 / 104; Pulse 66; Resp 19; Pulse Ox 99% ; jb4 12/08 00:49 Weight 117.3 kg; jb4 01:15 BP 134 / 98; Pulse 70; Resp 12; Pulse Ox 99% on R/A; jb4 02:45 BP 170 / 103; Pulse 64; Resp 14; Pulse Ox 99% on R/A; jb4 00:49 Body Mass Index 35.07 (117.30 kg, 182.88 cm) jb4 NIH Stroke Scale Scores: 12/07 22:58 NIHSS Score: 2 sp4 [place] Coma Score: 22:58 Eye Response: spontaneous(4). Motor Response: obeys commands(6). Verbal Response: sp4 oriented(5). Total: 15. MDM: 22:40 Patient medically screened. sp4 12/08 01:25 Differential diagnosis: Acute CVA, TIA. Data reviewed: vital signs, nurses notes, old sp4 medical records, lab test result(s), cardiac enzymes, CBC, electrolytes, hepatic panel, EKG, radiologic studies, CT scan, plain films. Consideration of Admission/Observation Patient was admitted/placed on observation. Escalation of care including admission/observation considered. Management of patient was discussed with the following: Ware Dresser: Accepting neurologist at [facility]. ED course: EKG revealed normal sinus rhythm, CT head with angiography has revealed moderate size acute infarct posterior right temporal lobe and parietal involvement over the right occipital lobe. Small foci of acute infarct posterior right parietal lobe. No hemorrhagic transformation. High-grade focal stenosis with near occlusion proximal right M1 branch 6 mm from its origin. Mid and distal right M1 branch and the remainder of the right MCA is otherwise patent. Severe hypoplasia right A1 segment. Normal variant. Right A2 and distal branches are normal via collateral filling through patent ACOM. 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 Basilar artery supplied by the right vertebral artery. No hemodynamic significant carotid stenosis. 30% focal stenosis of left ICA. . ED course: Basically there is acute infarct right temporal lobe and right occipital lobe. This infarct is secondary to high-grade focal stenosis of the right MCA. Patient was discussed with neurologist at [facility] who has accepted patient for transfer.. Patient was started on IV heparin with heparin bolus. . ED course: As mentioned above patient's symptoms have started on 12/07/2019 3 in the evening which makes him ineligible for tPA. This was explained to the patient in great detail.. 12/07 22:37 Order name: Basic Metabolic Panel; Complete Time: 01: [facility] 12/07 22:37 Order name: CBC with Diff; Complete Time: : [facility] 12/07 22:37 Order name: LFT's; Complete Time: : 12/07 22:37 Order name: NT PRO-BNP; Complete Time: : 12/07 22:37 Order name: PT-INR; Complete Time: : 12/07 22:37 Order name: Troponin HS; Complete Time: : 12/07 22:37 Order name: XRAY Chest (1 view) 12/07 22:47 Order name: CT Head Brain wo Cont 12/07 22:58 Order name: CT Head Angio 12/07 22:58 Order name: CT Neck Angio 12/07 22:37 Order name: EKG; Complete Time: 22:38 12/07 22:37 Order name: Cardiac monitoring; Complete Time: 23:33 12/07 22:37 Order name: EKG - Nurse/Tech; Complete Time: 23:33 12/07 22:37 Order name: IV Saline Lock; Complete Time: 23:33 12/07 22:37 Order name: Labs collected and sent; Complete Time: 23:33 12/07 22:37 Order name: O2 Per Protocol; Complete Time: 23:41 12/07 22:37 Order name: O2 Sat Monitoring; Complete Time: 23:41 sp4 EC:25 Rate is 63 beats/min. Rhythm is regular, Normal Sinus Rhythm. QRS [place] is Normal. LA sp4 interval is normal. QRS interval is normal. QT interval is normal. T waves are Normal. No ST changes noted. Clinical impression: Normal ECG. Interpreted by me. Administered Medications: 01: Drug: Aspirin PO 81 mg Route: PO; jb4 01:21 Drug: HEParin IV 4000 units {Co-Signature: pf1 (Mague irizarry RN).} Route: IV; Rate: jb4 bolus; Site: right antecubital; :22 Drug: Heparin (HI Drip) - (D5W IV 500 ml, [place] [address] units) 12 units/kg/hr jb4 {Co-Signature: pf1 (Mague irizarry RN).} Route: IV; Rate: calculated rate; Site: right antecubital; Disposition Summary: 12/08/22 01:31 Transfer Ordered Transfer Location: [facility] sp4 Reason: Higher level of care sp4 Condition: Serious sp4 Problem: new sp4 Symptoms: are unchanged sp4 Accepting Physician: [facility](12/08/22 03:23) jb4 Diagnosis - Left homonymous hemianopsia, acute CVA, out of tPA window , high-grade stenosis sp4 right MCA artery, Forms: - Medication Reconciliation Form sp4 - SBAR form sp4 Critical care time excluding procedures: :31 Critical care time: Bedside Care: 34 minutes, Consultation: 12 minutes. Total time: 46 sp4 minutes NIH Stroke Scale - NIH Stroke Score Date: 12/07/2022 Time: 22:58 Total Score = 2 10. Dysarthria (speech clarity - read or repeat words) - 0(Normal) 11. Extinction and Inattention (visual/tactile/auditory/spatial/personal) - 0(No abnormality) 1a. Level of Consciousness (LOC) - 0(Alert) 1b. Level of Consciousness (LOC) (Month \T\ Age) - 0(Both) 1c. LOC Commands (Open \T\ Closes Eyes/Stove Refinisher) - 0(Both) 2. Best Gaze (Lateral Gaze Paresis) - 0(Normal) 3. Visual Field Loss - 2(Complete hemianopia) 4. Facial Palsy - 0(Normal) 5a. Left Arm: Motor (10-second hold) - 0(No drift) 5b. Right Arm: Motor (10-second hold) - 0(No drift) 6a. Left Leg: Motor (5-second hold - always test supine) - 0(No drift) 6b. Right Leg: Motor (5-second hold - always test supine) - 0(No drift) 7. Limb Ataxia (finger/nose \T\ heel/[place] - test with eyes open) - 0(Absent) 8. Sensory Loss (pinprick arms/legs/face) - 0(Normal) 9. Best Language: Aphasia (description/naming/reading) - 0(No aphasia) Initials: sp4 Signatures: Dispatcher [employer] EDBelinda Mercer RN RN kl Bryson, James, RN RN jb4 Gurjit Bray MD MD sp4 Mague irizarry RN pf1 Corrections: (The following items were deleted from the chart) 03:23 01:31 [facility] sp4 jb4
[2022-12-08 03:28] VITALS: TEMP 98
[2022-12-08 03:29] VITALS: O2SAT 99
[2022-12-08 03:33] VITALS: BP 170/103
--- NOTE | 2022-12-09 12:38 | RAD REPORT ---
EXAM DESCRIPTION: CT - Head Brain Wo Cont - 12/08/2022 7:24 am ADDENDUM #1 These findings were communicated to Dr. 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 Electronically signed by: Yony Watson MD 12/08/2022 12:53 AM CDT End of Addendum EXAM DESCRIPTION: Head Brain Wo Cont (accession [id number]), Neck Angio (accession [id number]) , Head angio (accession [id number]) CLINICAL HISTORY: 72 years Male, DIZZINESS TECHNIQUE: Helical CT axial images are obtained from the base thoracic inlet through the vertex with out and with IV contrast. Multiplanar reconstruction. MIP reconstruction plus or minus 3D image pro cessing was also performed. NASCET criteria using the distal ICAs for comparison were used for evalua tion of carotid stenosis. This exam was performed according to our departmental dose-optimization pro gram, which includes automated exposure control, adjustment of the mA and/or kV according to patient size and/or use of iterative reconstruction technique. COMPARISON: None. FINDINGS: NONCONTRAST CT BRAIN: Moderate size acute infarct posterior right temporal lobe with partial involvement of the subjacent r ight occipital lobe. Small foci of acute infarcts posterior right parietal lobe. No parenchymal hem orrhage, intra-axial mass, mass effect, or midline shift. No abnormal extra-axial fluid collections. Ventricles are normal in size and configuration. No hydrocephalus. Bone windows demonstrate no skull fracture or pathologic calvarial lesions. Mastoid air cells are ramez ar. Clear paranasal sinuses. CTA BRAIN: There is high-grade focal stenosis with near occlusion of the proximal right M1 branch 6 mm from its origin. Minimal contrast opacification through this highly stenotic region with normal appearance of the right mid and distal M1 branch. Right M2 and distal branches have a normal appearance. Severe hypoplasia right A1 segment, normal variant. Right A2 and distal branches are normal in calibe r in part secondary to contralateral filling through patent anterior communicating artery. Left anter ior and left middle cerebral arteries have a normal appearance. Distal aspect of bilateral internal carotid arteries are normal in caliber and morphology without f ocal stenosis or aneurysm. Bilateral anterior and middle cerebral arteries have a normal appearance. Patent anterior communicating artery.. Basilar artery is small normal in caliber without high-grade stenosis or basilar tip aneurysm. Mild v ertebrobasilar tortuosity. origin right PRODUCTION ARTIST with aplasia right P1 segment, normal variant. Norm al appearing left P1 segment emanating from the basilar tip. Beyond their P1 segments, bilateral machine worker are otherwise within normal limits. Non-visualized left PCOM. Intracranial portion of the left scotty tebral artery terminates into PICA (posterior inferior cerebellar artery), normal variant. Basilar ar brice supplied by the right vertebral artery. No aneurysm or arteriovenous malformation CTA NECK: RIGHT CAROTID: Moderate atherosclerotic changes of the carotid bifurcation. Cervical course of the internal carotid artery is within normal limits without focal stenosis, aneurysm, or dissection. Norm al CCA. Origin and proximal visualized branches of the external carotid artery appears normal. LEFT CAROTID: Moderate atherosclerotic changes of the carotid bifurcation. There is 30% focal stenosi s origin of the ICA. Remainder of the cervical course of the internal carotid artery is within normal limits without focal stenosis, aneurysm, or dissection. Unremarkable CCA. Origin and proximal visual ized branches of the external carotid artery appears normal. VERTEBRAL: Patent bilateral vertebral arteries with right dominance. Left vertebral artery is patent but diminutive in caliber and terminates into PICA (posterior inferior cerebellar artery), normal anatoliy iant. OTHER: Noncontributory. SOFT TISSUES: Unremarkable. IMPRESSION: 1. Moderate size acute infarct posterior right temporal lobe with partial involvement of the subjacent right occipital lobe. Small foci of acute infarcts posterior right parietal lobe. 2. No hemorrhagic transformation. 3. High-grade focal stenosis with near occlusion proximal right M1 branch, 6 mm from its origin. Mi d and distal right M1 branch and remainder of the right MCA is otherwise patent. 4. Severe hypoplasia right A1 segment, normal variant. Right A2 and distal branches are normal via contralateral filling through patent ACOM 5. origin right PRODUCTION ARTIST with aplasia right P1 segment, normal variant. 6. Diminutive caliber left vertebral artery which terminates into PICA, normal variant. Basilar art rachel supplied by the right vertebral artery. 7. No hemodynamic significant carotid stenosis. A 30% focal stenosis origin left ICA. Electronically signed by: Yony Watson MD 12/08/2022 12:37 AM CDT Due to temporary technical issues with the PACS/Fluency reporting system, reports are being signed by the in house radiologist without review as a courtesy to ensure prompt reporting. The interpreting r adiologist is fully responsible for the content of the report.
--- NOTE | 2022-12-09 12:40 | EKG ---
Test Date: 2022-12-07 Test Time: 23:17:12 Dispatch Associate: MEASUREMENT RESULTS: Intervals: Rate: 63 RI: 146 QRSD: 90 QT: 404 QTc: 413 [place]: P: 59 RI: 146 QRS: 49 T: 57 INTERPRETIVE STATEMENTS: Normal sinus rhythm Normal ECG Compared to ECG 07/25/1998 06:30:00 No significant changes Electronically Signed On 12-09-22 12:37:20 CDT by Horacio Quiroz
--- NOTE | 2022-12-09 12:41 | RAD REPORT ---
EXAM DESCRIPTION: CT - Neck Angio - 12/08/2022 7:25 am ADDENDUM #1 These findings were communicated to Dr. 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 Electronically signed by: Yony Watson MD 12/08/2022 12:53 AM CDT End of Addendum EXAM DESCRIPTION: Head Brain Wo Cont (accession [id number]), Neck Angio (accession [id number]) , Head angio (accession [id number]) CLINICAL HISTORY: 72 years Male, DIZZINESS TECHNIQUE: Helical CT axial images are obtained from the base thoracic inlet through the vertex with out and with IV contrast. Multiplanar reconstruction. MIP reconstruction plus or minus 3D image pro cessing was also performed. NASCET criteria using the distal ICAs for comparison were used for evalua tion of carotid stenosis. This exam was performed according to our departmental dose-optimization pro gram, which includes automated exposure control, adjustment of the mA and/or kV according to patient size and/or use of iterative reconstruction technique. COMPARISON: None. FINDINGS: NONCONTRAST CT BRAIN: Moderate size acute infarct posterior right temporal lobe with partial involvement of the subjacent r ight occipital lobe. Small foci of acute infarcts posterior right parietal lobe. No parenchymal hem orrhage, intra-axial mass, mass effect, or midline shift. No abnormal extra-axial fluid collections. Ventricles are normal in size and configuration. No hydrocephalus. Bone windows demonstrate no skull fracture or pathologic calvarial lesions. Mastoid air cells are ramez ar. Clear paranasal sinuses. CTA BRAIN: There is high-grade focal stenosis with near occlusion of the proximal right M1 branch 6 mm from its origin. Minimal contrast opacification through this highly stenotic region with normal appearance of the right mid and distal M1 branch. Right M2 and distal branches have a normal appearance. Severe hypoplasia right A1 segment, normal variant. Right A2 and distal branches are normal in calibe r in part secondary to contralateral filling through patent anterior communicating artery. Left anter ior and left middle cerebral arteries have a normal appearance. Distal aspect of bilateral internal carotid arteries are normal in caliber and morphology without f ocal stenosis or aneurysm. Bilateral anterior and middle cerebral arteries have a normal appearance. Patent anterior communicating artery.. Basilar artery is small normal in caliber without high-grade stenosis or basilar tip aneurysm. Mild v ertebrobasilar tortuosity. 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 Norm al appearing left P1 segment emanating from the basilar tip. Beyond their P1 segments, bilateral hand coke drawer are otherwise within normal limits. Non-visualized left PCOM. Intracranial portion of the left scotty tebral artery terminates into PICA (posterior inferior cerebellar artery), normal variant. Basilar ar brice supplied by the right vertebral artery. No aneurysm or arteriovenous malformation CTA NECK: RIGHT CAROTID: Moderate atherosclerotic changes of the carotid bifurcation. Cervical course of the internal carotid artery is within normal limits without focal stenosis, aneurysm, or dissection. Norm al CCA. Origin and proximal visualized branches of the external carotid artery appears normal. LEFT CAROTID: Moderate atherosclerotic changes of the carotid bifurcation. There is 30% focal stenosi s origin of the ICA. Remainder of the cervical course of the internal carotid artery is within normal limits without focal stenosis, aneurysm, or dissection. Unremarkable CCA. Origin and proximal visual ized branches of the external carotid artery appears normal. VERTEBRAL: Patent bilateral vertebral arteries with right dominance. Left vertebral artery is patent but diminutive in caliber and terminates into PICA (posterior inferior cerebellar artery), normal anatoliy iant. OTHER: Noncontributory. SOFT TISSUES: Unremarkable. IMPRESSION: 1. Moderate size acute infarct posterior right temporal lobe with partial involvement of the subjacent right occipital lobe. Small foci of acute infarcts posterior right parietal lobe. 2. No hemorrhagic transformation. 3. High-grade focal stenosis with near occlusion proximal right M1 branch, 6 mm from its origin. Mi d and distal right M1 branch and remainder of the right MCA is otherwise patent. 4. Severe hypoplasia right A1 segment, normal variant. Right A2 and distal branches are normal via contralateral filling through patent ACOM 5. 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 6. Diminutive caliber left vertebral artery which terminates into PICA, normal variant. Basilar art rachel supplied by the right vertebral artery. 7. No hemodynamic significant carotid stenosis. A 30% focal stenosis origin left ICA. Electronically signed by: Yony Watson MD 12/08/2022 12:37 AM CDT Due to temporary technical issues with the PACS/Fluency reporting system, reports are being signed by the in house radiologist without review as a courtesy to ensure prompt reporting. The interpreting r adiologist is fully responsible for the content of the report.
--- NOTE | 2022-12-09 12:42 | RAD REPORT ---
EXAM DESCRIPTION: CT - Head angio - 12/08/2022 7:25 am ADDENDUM #1 These findings were communicated to Dr. Gurjit Bray on 12/08/2022 12:27 AM ([employer]). Electronically signed by: Yony Watson MD 12/08/2022 12:53 AM CDT End of Addendum EXAM DESCRIPTION: Head Brain Wo Cont (accession [id number]), Neck Angio (accession [id number]) , Head angio (accession [id number]) CLINICAL HISTORY: 72 years Male, DIZZINESS TECHNIQUE: Helical CT axial images are obtained from the base thoracic inlet through the vertex with out and with IV contrast. Multiplanar reconstruction. MIP reconstruction plus or minus 3D image pro cessing was also performed. NASCET criteria using the distal ICAs for comparison were used for evalua tion of carotid stenosis. This exam was performed according to our departmental dose-optimization pro gram, which includes automated exposure control, adjustment of the mA and/or kV according to patient size and/or use of iterative reconstruction technique. COMPARISON: None. FINDINGS: NONCONTRAST CT BRAIN: Moderate size acute infarct posterior right temporal lobe with partial involvement of the subjacent r ight occipital lobe. Small foci of acute infarcts posterior right parietal lobe. No parenchymal hem orrhage, intra-axial mass, mass effect, or midline shift. No abnormal extra-axial fluid collections. Ventricles are normal in size and configuration. No hydrocephalus. Bone windows demonstrate no skull fracture or pathologic calvarial lesions. Mastoid air cells are ramez ar. Clear paranasal sinuses. CTA BRAIN: There is high-grade focal stenosis with near occlusion of the proximal right M1 branch 6 mm from its origin. Minimal contrast opacification through this highly stenotic region with normal appearance of the right mid and distal M1 branch. Right M2 and distal branches have a normal appearance. Severe hypoplasia right A1 segment, normal variant. Right A2 and distal branches are normal in calibe r in part secondary to contralateral filling through patent anterior communicating artery. Left anter ior and left middle cerebral arteries have a normal appearance. Distal aspect of bilateral internal carotid arteries are normal in caliber and morphology without f ocal stenosis or aneurysm. Bilateral anterior and middle cerebral arteries have a normal appearance. Patent anterior communicating artery.. Basilar artery is small normal in caliber without high-grade stenosis or basilar tip aneurysm. Mild v ertebrobasilar tortuosity. 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 Norm al appearing left P1 segment emanating from the basilar tip. Beyond their P1 segments, bilateral health education aide are otherwise within normal limits. Non-visualized left PCOM. Intracranial portion of the left scotty tebral artery terminates into PICA (posterior inferior cerebellar artery), normal variant. Basilar ar brice supplied by the right vertebral artery. No aneurysm or arteriovenous malformation CTA NECK: RIGHT CAROTID: Moderate atherosclerotic changes of the carotid bifurcation. Cervical course of the internal carotid artery is within normal limits without focal stenosis, aneurysm, or dissection. Norm al CCA. Origin and proximal visualized branches of the external carotid artery appears normal. LEFT CAROTID: Moderate atherosclerotic changes of the carotid bifurcation. There is 30% focal stenosi s origin of the ICA. Remainder of the cervical course of the internal carotid artery is within normal limits without focal stenosis, aneurysm, or dissection. Unremarkable CCA. Origin and proximal visual ized branches of the external carotid artery appears normal. VERTEBRAL: Patent bilateral vertebral arteries with right dominance. Left vertebral artery is patent but diminutive in caliber and terminates into PICA (posterior inferior cerebellar artery), normal anatoliy iant. OTHER: Noncontributory. SOFT TISSUES: Unremarkable. IMPRESSION: 1. Moderate size acute infarct posterior right temporal lobe with partial involvement of the subjacent right occipital lobe. Small foci of acute infarcts posterior right parietal lobe. 2. No hemorrhagic transformation. 3. High-grade focal stenosis with near occlusion proximal right M1 branch, 6 mm from its origin. Mi d and distal right M1 branch and remainder of the right MCA is otherwise patent. 4. Severe hypoplasia right A1 segment, normal variant. Right A2 and distal branches are normal via contralateral filling through patent ACOM 5. 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 6. Diminutive caliber left vertebral artery which terminates into PICA, normal variant. Basilar art rachel supplied by the right vertebral artery. 7. No hemodynamic significant carotid stenosis. A 30% focal stenosis origin left ICA. Electronically signed by: Yony Watson MD 12/08/2022 12:37 AM CDT Due to temporary technical issues with the PACS/Fluency reporting system, reports are being signed by the in house radiologist without review as a courtesy to ensure prompt reporting. The interpreting r adiologist is fully responsible for the content of the report.
--- NOTE | 2022-12-09 12:44 | RAD REPORT ---
EXAM DESCRIPTION: RAD - Chest Single View - 12/07/2022 11:08 pm CLINICAL HISTORY: 72 years Male CHEST PAIN TECHNIQUE: One view of the chest. COMPARISON: No prior exams provided for comparison. FINDINGS: The lungs are clear without focal consolidation, effusion, or pneumothorax. The cardiomedi astinal silhouette and central pulmonary vasculature are normal. No acute osseous abnormalities. IMPRESSION: No acute cardiopulmonary abnormalities. Electronically signed by: Samantha Oscar MD 12/07/2022 11:33 PM CDT Due to temporary technical issues with the PACS/Fluency reporting system, reports are being signed by the in house radiologist without review as a courtesy to ensure prompt reporting. The interpreting r adiologist is fully responsible for the content of the report.
== END 2022-12-08 03:23 | disposition short-term general hospital (02) ==
LOC: ER 22:25
DX: I63.9 Cerebral infarction, unspecified (principal); I66.01 Occlusion and stenosis of right middle cerebral artery; R29.702 NIHSS score 2
CPT/HCPCS: 93005; 85025; 80048; 36415; 85610; 82565; 80076; 84484; 83880; 70450; 70496; 70498; 71045; Q9967; J1644; 96374; 99285